=== PATIENT | male | born 1950 | race Caucasian/White ===

== ENCOUNTER → 2016-06-13 | Outpatient (CLI) | payer MEDICARE ==
--- NOTE | 2016-06-13 12:09 | CT ---
EXAMINATION TYPE: CT brain wo con DATE OF EXAM: 06/13/2016 12:04 PM COMPARISON: NONE HISTORY: Patient complains of neck pain and abnormal xray. CT DLP: [address] of the brain was performed. The ventricles, basal cisterns and sulci overlying the cerebral convexities demonstrate mild enlargem ent. There is no evidence for intracranial hemorrhage or sulcal effacement. There is decreased attenuation about the periventricular white matter and deep white matter of both c erebral hemispheres, compatible with chronic small vessel ischemia. Differential diagnosis does inclu de demyelination. No mass effects are seen.No midline shift. Osseous calvarium is intact. If symptoms persist consider MRI. IMPRESSION: 1. Age related atrophic and chronic small vessel ischemic change without acute intracranial process s een at this time.
== END | disposition home or self-care (01) ==
LOC: RADCTMAIN 11:47
PROVIDERS: ATTEND Family Medicine
DX: I67.82 Cerebral ischemia (principal); G31.1 Senile degeneration of brain, not elsewhere classified; R03.0 Elevated blood-pressure reading, without diagnosis of hypertension
CPT/HCPCS: 70450

== ENCOUNTER → 2016-07-04 | Outpatient (CLI) | payer MEDICARE ==
--- NOTE | 2016-07-04 11:08 | US ---
EXAMINATION TYPE: US abdomen complete DATE OF EXAM: 07/04/2016 9:47 AM COMPARISON: NONE CLINICAL HISTORY: Z82.49 FAM HX AAA. Pt states family history of AAA (Mother, Father, Sister, Aunt) EXAM MEASUREMENTS: Liver Length: 15.6 cm Gallbladder Wall: 0.2 cm CBD: 0.3 cm Spleen: 10.4 cm Right Kidney: 12.3 x 5.2 x 5.4 cm Left Kidney: 12.9 x 6.0 x 5.1 cm Pancreas: wnl, tail obscured by overlying midline bowel gas Liver: wnl Gallbladder: wnl Evidence for sonographic Alcala's sign: No CBD: wnl Spleen: wnl Right Kidney: wnl Left Kidney: wnl Upper IVC: wnl Abd Aorta: Ectatic with Distal AAA= 3.3 cm transverse measurement There is no ascites The liver is homogenous. The intrahepatic portion of the IVC is within normal limits. There is no e vidence of cholelithiasis. Common bile duct is unremarkable. The visualized portions of the pancrea s are homogenous. The spleen is unremarkable. Kidneys are symmetric and free of hydronephrosis. No renal lesions are seen. IMPRESSION: Abdominal aortic aneurysm.
== END | disposition home or self-care (01) ==
LOC: RADUSWWP 09:29
PROVIDERS: ATTEND Family Medicine
DX: Z09 Encounter for follow-up examination after completed treatment for conditions other than malignant neoplasm (principal); I71.4 Abdominal aortic aneurysm, without rupture
CPT/HCPCS: 76700

== ENCOUNTER → 2017-01-30 | Outpatient (CLI) | payer MEDICARE ==
--- NOTE | 2017-01-30 09:56 | US ---
EXAMINATION TYPE: US duplex aorta DATE OF EXAM: 01/30/2017 COMPARISON: US CLINICAL HISTORY: I71.4 Abdominal aortic aneurysm, without rupture. F/U previous EXAM MEASUREMENTS: Abdominal Aorta: Proximal: 2.7 x 3.1 x 3.1 cm Mid: 2.5 x 2.2 x 2.4 cm Distal: 2.6 x 2.8 x 3.3 cm Bifurcation: [place]: 1.8 x 1.6 cm GIO: 1.6 x 1.4 cm Ectatic aorta showing >3cm measurement, with largest measurement at distal portion= 3.3 cm IMPRESSION: Distal abdominal aortic aneurysm measuring up to 3.3 cm, unchanged in caliber from the ex am of 07/04/2016.
== END | disposition home or self-care (01) ==
LOC: RADUSWWP 09:04
PROVIDERS: ATTEND Family Medicine
DX: I71.4 Abdominal aortic aneurysm, without rupture (principal); Z82.49 Family history of ischemic heart disease and other diseases of the circulatory system
CPT/HCPCS: 93979

== ENCOUNTER 2017-04-23 07:52 | Observation (INO) | payer MEDICARE, OTHER ==
--- NOTE | 2017-04-23 08:21 | ED ---
General Adult HPI - General Chief complaint: Shortness of Breath Stated complaint: Sob/back pain Time Seen by Provider: 04/23/17 08:03 Source: patient, RN notes reviewed, old records reviewed Mode of arrival: wheelchair Limitations: no limitations - History of Present Illness Initial comments: 66-year-old male presents for evaluation of dyspnea and difficulty taking a complete breath. Patient states that over the past 2-3 weeks he has had increasing shortness of breath. Patient does report shortness of breath while sleeping that with the patient. He also reports some mild intermittent lower tremor swelling worse when he's been on his feet throughout the day. Patient denies chest pain. He does complain of pain between his shoulder blades which is mild to moderate and intermittent in nature. Pain does not worsen with exertion. Patient states he has a history of "hardening of the arteries", he was told this by aeronautical test engineer many years ago. He has not had a stent or heart catheterization. Patient is not currently on any medications. He has no history of heart failure. No history of asthma or COPD. No cough or URI symptoms. No nausea vomiting or diarrhea. No central chest pain. Patient has additional past medical history of abdominal aortic aneurysm, he is uncertain of the size, has not had any intervention at this time. - Related Data Home Medications Medication Instructions Recorded Confirmed Aspirin EC [Ecotrin] 325 mg PO BID 04/23/17 04/23/17 Multivitamins, Thera [Multivitamin 1 tab PO DAILY 04/23/17 04/23/17 (formulary)] Sertraline [Zoloft] 50 mg PO HS 04/23/17 04/23/17 valACYclovir HCL [Valtrex] 1,000 mg PO DAILY 04/23/17 04/23/17 Allergies Allergy/AdvReac Type Severity Reaction Status Date / Time No Known Allergies Allergy Unverified 04/23/17 08:32 Review of Systems ROS Statement: Those systems with pertinent positive or pertinent negative responses have been documented in the HPI. ROS Other: All systems not noted in ROS Statement are negative. Past Medical History Past Medical History: Coronary Artery Disease (CAD) History of Any Multi-Drug Resistant Organisms: None Reported Past Surgical History: Appendectomy, Hernia Repair, Tonsillectomy Past Psychological History: No Psychological Hx Reported Smoking Status: Never smoker Past Alcohol Use History: None Reported Past Drug Use History: None Reported General Exam Limitations: no limitations General appearance: alert, in no apparent distress Head exam: Present: atraumatic, normocephalic Eye exam: Present: normal appearance, PERRL ENT exam: Present: normal exam Neck exam: Present: normal inspection, tenderness Respiratory exam: Present: normal lung sounds bilaterally, respiratory distress. Absent: wheezes, rales, rhonchi Cardiovascular Exam: Present: regular rate, normal rhythm GI/Abdominal exam: Present: soft. Absent: distended Extremities exam: Present: normal inspection, normal capillary refill. Absent: pedal edema Back exam: Present: normal inspection, full ROM. Absent: tenderness Neurological exam: Present: alert, oriented X3, CN II-XII intact. Absent: motor sensory deficit Psychiatric exam: Present: normal affect, normal mood Skin exam: Present: warm, dry, intact. Absent: cyanosis, diaphoretic Course Vital Signs 04/23/17 07:56 Temperature 97.1 F L Pulse Rate 61 Respiratory 18 Rate Blood Pressure 148/92 O2 Sat by Pulse 99 Oximetry EKG Findings - EKG Comments: EKG Findings:: EKG shows sinus bradycardia, ventricular 55, AR interval 170, QRS duration 86, QTC 4:15, T-wave flattening in the precordial leads. No ST segment elevation or depression. Medical Decision Making - Medical Decision Making 66-year-old man presenting for evaluation of dyspnea and atraumatic mid back pain. EKG does not show any ST segment elevation or depression, there is T- wave abnormality. Chest x-ray shows no acute findings. White blood cell count 7.1, hemoglobin 15.4, d-dimer is negative, troponin negative, BNP 41 which is negative. Concerned that dyspnea and atraumatic back pain may be anginal equivalent. Patient will be placed in observation for cardiac echo, serial cardiac enzymes and cardiology evaluation. - Lab Data Result diagrams: 04/23/17 08:30 04/23/17 08:30 Lab Results 04/23/17 04/23/17 04/23/17 Range/Units 08:30 08:30 08:30 WBC 7.1 (3.8-10.6) k/uL RBC 4.88 (4.30-5.90) m/uL Hgb 15.4 (13.0-17.5) gm/dL Hct 46.2 (39.0-53.0) % MCV 94.7 (80.0-100.0) fL MCH 31.5 (25.0-35.0) pg MCHC 33.3 (31.0-37.0) g/dL RDW 13.9 (11.5-15.5) % Plt Count 243 (150-450) k/uL Neutrophils % 67 % Lymphocytes % 23 % Monocytes % 6 % Eosinophils % 2 % Basophils % 0 % Neutrophils # 4.7 (1.3-7.7) k/uL Lymphocytes # 1.6 (1.0-4.8) k/uL Monocytes # 0.5 (0-1.0) k/uL Eosinophils # 0.1 (0-0.7) k/uL Basophils # 0.0 (0-0.2) k/uL PT 10.5 (9.0-12.0) sec INR 1.1 (<1.2) APTT 26.0 (22.0-30.0) sec D-Dimer 0.27 (<0.60) mg/L FEU Sodium 140 (137-145) mmol/L Potassium 4.2 (3.5-5.1) mmol/L Chloride 104 (98-107) mmol/L Carbon Dioxide 28 (22-30) mmol/L Anion Gap 8 mmol/L BUN 16 (9-20) mg/dL Creatinine 0.72 (0.66-1.25) mg/dL Est GFR (MDRD) Af Amer >60 (>60 ml/min/1.73 sqM) Est GFR (MDRD) Non-Af >60 (>60 ml/min/1.73 sqM) Glucose 98 (74-99) mg/dL Calcium 9.1 (8.4-10.2) mg/dL Magnesium 2.1 (1.6-2.3) mg/dL Total Bilirubin 0.6 (0.2-1.3) mg/dL AST 38 (17-59) U/L ALT 55 (21-72) U/L Alkaline Phosphatase 61 (38-126) U/L Total Creatine Kinase (55-170) U/L CK-MB (CK-2) (0.0-2.4) ng/mL CK-MB (CK-2) Rel Index Troponin I (0.000-0.034) ng/mL NT-Pro-B Natriuret Pep pg/mL Total Protein 6.9 (6.3-8.2) g/dL Albumin 4.1 (3.5-5.0) g/dL 04/23/17 04/23/17 Range/Units 08:30 08:30 WBC (3.8-10.6) k/uL RBC (4.30-5.90) m/uL Hgb (13.0-17.5) gm/dL Hct (39.0-53.0) % MCV (80.0-100.0) fL MCH (25.0-35.0) pg MCHC (31.0-37.0) g/dL RDW (11.5-15.5) % Plt Count (150-450) k/uL Neutrophils % % Lymphocytes % % Monocytes % % Eosinophils % % Basophils % % Neutrophils # (1.3-7.7) k/uL Lymphocytes # (1.0-4.8) k/uL Monocytes # (0-1.0) k/uL Eosinophils # (0-0.7) k/uL Basophils # (0-0.2) k/uL PT (9.0-12.0) sec INR (<1.2) APTT (22.0-30.0) sec D-Dimer (<0.60) mg/L FEU Sodium (137-145) mmol/L Potassium (3.5-5.1) mmol/L Chloride (98-107) mmol/L Carbon Dioxide (22-30) mmol/L Anion Gap mmol/L BUN (9-20) mg/dL Creatinine (0.66-1.25) mg/dL Est GFR (MDRD) Af Amer (>60 ml/min/1.73 sqM) Est GFR (MDRD) Non-Af (>60 ml/min/1.73 sqM) Glucose (74-99) mg/dL Calcium (8.4-10.2) mg/dL Magnesium (1.6-2.3) mg/dL Total Bilirubin (0.2-1.3) mg/dL AST (17-59) U/L ALT (21-72) U/L Alkaline Phosphatase (38-126) U/L Total Creatine Kinase 186 H (55-170) U/L CK-MB (CK-2) 2.8 H* (0.0-2.4) ng/mL CK-MB (CK-2) Rel Index 1.5 Troponin I <0.012 (0.000-0.034) ng/mL NT-Pro-B Natriuret Pep 41 pg/mL Total Protein (6.3-8.2) g/dL Albumin (3.5-5.0) g/dL Disposition Clinical Impression: Anginal equivalent Disposition: ADMITTED IP TO THIS [facility] Condition: Stable Referrals: David Mann DO [Primary Care Provider] - 1-2 days Decision to Admit Reason: Admit from EC Decision Date: 04/23/17 Decision Time: 10:08
[2017-04-23 08:52] LABS: Basophils % (A) 0 %; Eosinophils # (A) 0.1 k/uL (0-0.7); Eosinophils % (A) 2 %; HCT 46.2 % (39.0-53.0); HGB 15.4 gm/dL (13.0-17.5); Lymphocytes # (A) 1.6 k/uL (1.0-4.8); Lymphocytes % (A) 23 %; MCH 31.5 pg (25.0-35.0); MCHC 33.3 g/dL (31.0-37.0); MCV 94.7 fL (80.0-100.0); Mean Platelet Volume 7.6; Monocytes # (A) 0.5 k/uL (0-1.0); Monocytes % (A) 6 %; Neutrophils # (A) 4.7 k/uL (1.3-7.7); Neutrophils % (A) 67 %; Platelet Count 243 k/uL (150-450); RBC 4.88 m/uL (4.30-5.90); RDW 13.9 % (11.5-15.5); WBC 7.1 k/uL (3.8-10.6)
--- NOTE | 2017-04-23 09:11 | XR ---
EXAMINATION TYPE: XR chest 2V DATE OF EXAM: 04/23/2017 COMPARISON: NONE TECHNIQUE: PA and lateral views submitted. HISTORY: Shortness of breath FINDINGS: The lungs are clear and there is no pneumothorax, pleural effusion, or focal pneumonia. Hypertrophi c and degenerative change of the spine. Hyperinflation noted. IMPRESSION: 1. No acute process.
[2017-04-23 09:19] LABS: Creatine Kinase 186 U/L (55-170)
[2017-04-23 09:21] LABS: ALT 55 U/L (21-72); AST 38 U/L (17-59); Albumin 4.1 g/dL (3.5-5.0); Alkaline Phosphatase 61 U/L (38-126); Anion Gap 8 mmol/L; Blood Urea Nitrogen 16 mg/dL (9-20); Calcium 9.1 mg/dL (8.4-10.2); Carbon Dioxide 28 mmol/L (22-30); Chloride 104 mmol/L (98-107); Glucose 98 mg/dL (74-99); Magnesium 2.1 mg/dL (1.6-2.3); Sodium 140 mmol/L (137-145); Total Bilirubin 0.6 mg/dL (0.2-1.3); Total Protein 6.9 g/dL (6.3-8.2)
[2017-04-23 09:22] LABS: Potassium 4.2 mmol/L (3.5-5.1)
[2017-04-23 09:28] LABS: D-Dimer 0.27 mg/L FEU (<0.60); INR 1.1 (<1.2); Prothrombin Time 10.5 sec (9.0-12.0)
[2017-04-23 09:32] LABS: Troponin I <0.012 ng/mL (0.000-0.034)
[2017-04-23 09:35] LABS: Creatine Kinase MB 2.8 ng/mL (0.0-2.4)
[2017-04-23] MEDS ORDERED: ASPIRIN 325 MG TAB PO STA (10:06)
[2017-04-23] MEDS ORDERED: NALOXONE 0.4 MG/ML 1 ML VIAL IV PRN (10:10)
[2017-04-23] MEDS ORDERED: ONDANSETRON 4 MG/2 ML VIAL IVP PRN (10:12)
[2017-04-23] MEDS ORDERED: NITROGLYCERIN SL TABS 0.4 MG TAB SUBLINGUAL PRN (10:13)
[2017-04-23] MEDS ORDERED: SODIUM CHLORIDE 0.9% 1,000 ML IV SCH (10:15)
--- NOTE | 2017-04-23 12:23 | ECHOF ---
Referral Reason:Dyspnea, chest pain MEASUREMENTS -------- HEIGHT: 175.3 cm WEIGHT: 90.7 kg BP: 143/83 RVIDd: 3.2 cm (< 3.3) IVSd: 1.0 cm (0.6 - 1.1) LVIDd: 5.1 cm (3.9 - 5.3) LVPWd: 1.2 cm (0.6 - 1.1) IVSs: 1.6 cm LVIDs: 3.4 cm LVPWs: 1.6 cm LA Diam: 3.8 cm (2.7 - 3.8) LAESV Index (A-L): 26.47 ml/m Ao Diam: 3.3 cm (2.0 - 3.7) AV Cusp: 2.2 cm (1.5 - 2.6) MV EXCURSION: 16.312 mm (> 18.000) MV EF SLOPE: 45 mm/s (70 - 150) EPSS: 1.2 cm MV E Josafat: 0.52 m/s MV DecT: 227 ms MV A Josafat: 0.66 m/s MV E/A Ratio: 0.79 RAP: 5.00 mmHg RVSP: 24.94 mmHg FINDINGS -------- Sinus rhythm. This was a technically good study. The left ventricular size is normal. There is borderline concentric left ventricular hypertrophy. Overall left ventricular systolic function is normal with, an EF between 55 - 60 %. The right ventricle is normal in size and function. Normal LA size by volume 22+/-6 ml/m2. The right atrium is normal in size. The aortic valve is trileaflet and appears structurally normal. The mitral valve is normal. Mild tricuspid regurgitation present. Right ventricular systolic pressure is normal at < 35 mmHg. Trace/mild (physiologic) pulmonic regurgitation. The aortic root size is normal. Normal inferior vena cava with normal inspiratory collapse consistent with estimated right atrial pre ssure of 5 mmHg. There is no pericardial effusion. CONCLUSIONS -------- 1. Sinus rhythm. 2. This was a technically good study. 3. The left ventricular size is normal. 4. There is borderline concentric left ventricular hypertrophy. 5. Overall left ventricular systolic function is normal with, an EF between 55 - 60 %. 6. The right ventricle is normal in size and function. 7. Normal LA size by volume 22+/-6 ml/m2. 8. The right atrium is normal in size. 9. The aortic valve is trileaflet and appears structurally normal. 10. The mitral valve is normal. 11. Mild tricuspid regurgitation present. 12. Right ventricular systolic pressure is normal at < 35 mmHg. 13. Trace/mild (physiologic) pulmonic regurgitation. 14. The aortic root size is normal. 15. Normal inferior vena cava with normal inspiratory collapse consistent with estimated right atrial pressure of 5 mmHg. 16. There is no pericardial effusion. OPHTHALMOLOGY ASSISTANT: Patti Renteria RDCS
[2017-04-23] MEDS: ACETAMINOPHEN TAB 325 MG TAB PO PRN ×2 (15:10→20:03)
[2017-04-23 15:31] LABS: Creatine Kinase 162 U/L (55-170)
[2017-04-23 15:44] LABS: Creatine Kinase MB 2.3 ng/mL (0.0-2.4); Troponin I <0.012 ng/mL (0.000-0.034)
--- NOTE | 2017-04-23 16:32 | P.HPIM ---
History of Present Illness 66-year-old gentleman came with complaints of bilateral shoulder pain for weight in severity pressure-like sensation nonradiating associated with food along with nausea denied any diaphoresis last about 40 minutes. Patient still has his gallbladder patient denied any fever chills cough runny nose patient's chest pain is nonpleuritic in nature, complaining of some lightheadedness denied any shortness of breath associated with that. Review of Systems REVIEW OF SYSTEMS: CONSTITUTIONAL: No fever, no malaise, no fatigue. HEENT: No recent visual problems or hearing problems. Denied any sore throat. CARDIOVASCULAR: No orthopnea, PND, no palpitations, no syncope. PULMONARY: No shortness of breath, no cough, no hemoptysis. GASTROINTESTINAL: No diarrhea, no nausea, no vomiting, no abdominal pain. Normoactive bowel sounds. NEUROLOGICAL: No headaches, no weakness, no numbness. HEMATOLOGICAL: Denies any bleeding or petechiae. GENITOURINARY: Denies any burning micturition, frequency, or urgency. MUSCULOSKELETAL/RHEUMATOLOGICAL: Denies any joint pain, swelling, or any muscle pain. ENDOCRINE: Denies any polyuria or polydipsia. The rest of the 14-point review of systems is negative. Past Medical History Past Medical History: Coronary Artery Disease (CAD) Additional Past Medical History / Comment(s): AAA being monitored, occasional back pain, bilateral tinnitis. History of Any Multi-Drug Resistant Organisms: None Reported Past Surgical History: Appendectomy, Hernia Repair, Tonsillectomy Additional Past Surgical History / Comment(s): Bilateral inguinal hernia repairs done twice. Past Anesthesia/Blood Transfusion Reactions: No Reported Reaction Smoking Status: Never smoker - Past Family History Father Family Medical History: Cancer Additional Family Medical History / Comment(s): Father at the age of 75yrs from metastatic bladder cancer. Mother Family Medical History: No Reported History Additional Family Medical History / Comment(s): Mother is 85yrs old and healthy. Medications and Allergies Home Medications Medication Instructions Recorded Confirmed Type Aspirin EC [Ecotrin] 325 mg PO BID 04/23/17 04/23/17 History Multivitamins, Thera [Multivitamin 1 tab PO DAILY 04/23/17 04/23/17 History (formulary)] Sertraline [Zoloft] 50 mg PO HS 04/23/17 04/23/17 History valACYclovir HCL [Valtrex] 1,000 mg PO DAILY 04/23/17 04/23/17 History Allergies Allergy/AdvReac Type Severity Reaction Status Date / Time No Known Allergies Allergy Unverified 04/23/17 08:32 Physical Exam Vitals: Vital Signs Temp Pulse Pulse Resp BP BP Pulse Ox 04/23/17 15:37 97.7 F 61 18 127/75 97 04/23/17 14:15 98.0 F 63 18 139/86 99 04/23/17 14:07 98.7 F 64 18 132/63 98 04/23/17 13:24 94 18 146/94 98 04/23/17 10:02 59 L 18 123/85 98 04/23/17 09:02 52 L 18 142/86 98 04/23/17 07:56 97.1 F L 61 18 148/92 99 Intake and Output 04/23/17 04/23/17 04/23/17 06:59 14:59 22:59 Other: Weight 91.9 kg Patient Weight 04/24/17 06:59 Weight 91.9 kg PHYSICAL EXAMINATION: GENERAL: The patient is alert and oriented x3, not in any acute distress. Well developed, well nourished. HEENT: Pupils are round and equally reacting to light. EOMI. No scleral icterus. No conjunctival pallor. Normocephalic, atraumatic. No pharyngeal erythema. No thyromegaly. CARDIOVASCULAR: S1 and S2 present. No murmurs, rubs, or gallops. PULMONARY: Chest is clear to auscultation, no wheezing or crackles. ABDOMEN: Soft, nontender, nondistended, normoactive bowel sounds. No palpable organomegaly. MUSCULOSKELETAL: No joint swelling or deformity. EXTREMITIES: No cyanosis, clubbing, or pedal edema. NEUROLOGICAL: Gross neurological examination did not reveal any focal deficits. SKIN: No rashes. Results CBC & Chem 7: 04/23/17 08:30 04/23/17 08:30 Labs: Abnormal Lab Results - Last 24 Hours (Table) 04/23/17 Range/Units 08:30 Total Creatine Kinase 186 H (55-170) U/L CK-MB (CK-2) 2.8 H* (0.0-2.4) ng/mL Thrombosis Risk Factor Assmnt - Choose All That Apply Any of the Below Risk Factors Present?: Yes Each Factor Represents 1 point: Obesity (BMI >25) Other Risk Factors: Yes Each Risk Factor Represents 2 Points: Age 61-74 years Other congenital or acquired thrombophilia - If yes, enter type in comment: No Thrombosis Risk Factor Assessment Total Risk Factor Score: 3 Thrombosis Risk Factor Assessment Level: Moderate Risk Assessment and Plan Plan: #1 bilateral shoulder blade pain: Differentials include cholecystitis or cholelithiasis although patient does not have any other signs or symptoms of cholelithiasis or cholecystitis other differential being gastritis patient is actually admitted for rule out acute coronary syndromes and cardiology was consulted. We'll obtain ultrasound of the gallbladder. Patient will be started on Protonix twice a day. #2 history of coronary artery disease and patient is on aspirin at this time which will be continued patient is not in any beta bill. #3 depression for which patient will be continued on his home medication.
[2017-04-23] MEDS: PANTOPRAZOLE 40 MG/10 ML VIAL IVP SCH (20:02)
[2017-04-23] MEDS ORDERED: MORPHINE SULFATE 5 MG/ML SYRINGE IVP PRN (20:50)
[2017-04-23] MEDS ORDERED: IBUPROFEN 600 MG TAB PO PRN (20:51)
[2017-04-23] MEDS ORDERED: SERTRALINE 50 MG TAB PO SCH (21:00)
[2017-04-23 21:01] LABS: Creatine Kinase 146 U/L (55-170)
[2017-04-23 21:13] LABS: Creatine Kinase MB 1.9 ng/mL (0.0-2.4); Troponin I <0.012 ng/mL (0.000-0.034)
[2017-04-23] MEDS ORDERED: MAG HYDROX/AL HYDROX/SIMETH 30 ML CUP PO PRN (22:55)
[2017-04-24] MEDS: KETOROLAC 30 MG/ML 1 ML VIAL IVP SCH ×2 (00:45→05:52)
[2017-04-24] MEDS: SIMETHICONE 80 MG CHEWABLE PO SCH ×3 (00:45→16:09)
[2017-04-24 04:54] VITALS: RESP 18
--- NOTE | 2017-04-24 07:47 | US ---
EXAMINATION TYPE: US gallbladder DATE OF EXAM: 04/24/2017 COMPARISON: US CLINICAL HISTORY: R/O cholicytitis. epigastric pain EXAM MEASUREMENTS: Liver Length: 13.8 cm Gallbladder Wall: 0.2 cm CBD: 0.6 cm Right Kidney: 11.9 x 4.4 x 5.8 cm Pancreas: visualized portions wnl Liver: wnl Gallbladder: No stones seen Evidence for sonographic Alcala's sign: No CBD: wnl Right Kidney: No hydronephrosis or masses seen IMPRESSION: No significant abnormality identified.
[2017-04-24] MEDS ORDERED: MORPHINE SULFATE 2 MG/ML SYRINGE IVP PRN (08:48)
[2017-04-24] MEDS ORDERED: valACYclovir HCL 1,000 MG TABLET PO SCH (09:00)
[2017-04-24] MEDS ORDERED: ASPIRIN 325 MG TAB PO SCH (09:00)
[2017-04-24] MEDS: PANTOPRAZOLE 40 MG/10 ML VIAL IVP SCH (12:12)
--- NOTE | 2017-04-24 12:15 | P.CRDCN ---
History of Present Illness Consult date: 04/24/17 History of present illness: Mr. Mendoza is a pleasant 66-year-old male with past medical history significant for distal abdominal aortic aneurysm measuring 3.3 cm as of last ultrasound. He states he underwent catheterization 10+ years ago with Dr. Chappell and was told he has "hardening of the arteries" and has not had any cardiac follow-up since. Those records are unavailable at this time. We have been asked to see him in consultation for complaints of chest pain. He states this has been going on for the past few weeks. It starts in the epigastric region and is described as burning and tight. The pain then radiates up to his upper back between his shoulder blades as well as mild nausea. The pain comes on intermittently and is associated with eating. Usually occurs within 15-30 minutes of eating and he can make it better by getting up and walking around. He denies associated shortness of breath, dizziness, palpitations or diaphoresis. He still has his gallbladder and an ultrasound performed yesterday reveals no evidence of disease. EKG on arrival reveals sinus mechanism with non-specific T-wave abnormalities. Chest xray is negative for an acute cardiopulmonary process. Laboratory data reviewed,cardiac enzymes negative x3, hemoglobin 15.4, platelets 243, d-dimer negative, potassium 4.2, magnesium 2.1, creatinine 0.72, proBNP 41. Current cardiac medications include aspirin 81 mg daily. Review of Systems At the time of my exam: CONSTITUTIONAL: Denies fever. Denies chills. EYES: Denies blurred vision. Denies vision changes. Denies eye pain. EARS, NOSE, MOUTH & THROAT: Denies headache. Denies sore throat. Denies ear pain. CARDIOVASCULAR: Denies chest pain. Denies shortness of breath. Denies orthopnea. Denies PND. Denies palpitations. RESPIRATORY: Denies cough. GASTROINTESTINAL: Denies abdominal pain. Denies diarrhea. Denies constipation. Denies nausea. Denies vomiting. MUSCULOSKELETAL: Denies myalgias. INTEGUMENTARY: Denies pruitis. Denies rash. NEUROLOGIC: Denies numbness. Denies tingling. Denies weakness. PSYCHIATRIC: Denies anxiety. Denies depression. ENDOCRINE: Denies fatigue. Denies weight change. Denies polydipsia. Denies polyurina. GENITOURINARY: Denies burning, hematuria or urgency with micturation. HEMATOLOGIC: Denies history of anemia. Denies bleeding. Past Medical History Past Medical History: Coronary Artery Disease (CAD) Additional Past Medical History / Comment(s): AAA being monitored, occasional back pain, bilateral tinnitis. History of Any Multi-Drug Resistant Organisms: None Reported Past Surgical History: Appendectomy, Hernia Repair, Tonsillectomy Additional Past Surgical History / Comment(s): Bilateral inguinal hernia repairs done twice. Past Anesthesia/Blood Transfusion Reactions: No Reported Reaction Smoking Status: Never smoker - Past Family History Father Family Medical History: Cancer Additional Family Medical History / Comment(s): Father at the age of 75yrs from metastatic bladder cancer. Mother Family Medical History: No Reported History Additional Family Medical History / Comment(s): Mother is 85yrs old and healthy. Medications and Allergies Home Medications Medication Instructions Recorded Confirmed Type Aspirin EC [Ecotrin] 325 mg PO BID 04/23/17 04/23/17 History Multivitamins, Thera [Multivitamin 1 tab PO DAILY 04/23/17 04/23/17 History (formulary)] Sertraline [Zoloft] 50 mg PO HS 04/23/17 04/23/17 History valACYclovir HCL [Valtrex] 1,000 mg PO DAILY 04/23/17 04/23/17 History Allergies Allergy/AdvReac Type Severity Reaction Status Date / Time No Known Allergies Allergy Unverified 04/23/17 08:32 Physical Exam Vitals: Vital Signs Temp Pulse Pulse Resp BP BP Pulse Ox 04/24/17 08:00 97.7 F 57 L 18 148/87 98 04/24/17 04:00 98.1 F 44 L 18 121/84 98 04/24/17 00:00 98 F 53 L 20 144/92 97 04/23/17 20:00 20 04/23/17 19:34 98.0 F 62 18 132/91 97 04/23/17 15:37 97.7 F 61 18 127/75 97 04/23/17 14:15 98.0 F 63 18 139/86 99 04/23/17 14:07 98.7 F 64 18 132/63 98 04/23/17 13:24 94 18 146/94 98 04/23/17 10:02 59 L 18 123/85 98 04/23/17 09:02 52 L 18 142/86 98 Intake and Output 04/23/17 04/24/17 04/24/17 22:59 06:59 14:59 Intake Total 440 Balance 440 Intake: Oral 440 Other: Voiding Method Toilet Toilet Blood pressure 121/84 heart rate 44 afebrile GENERAL: This is a 66-year-old male in no apparent distress at the time of my examination. HEENT: Head is atraumatic, normocephalic. Pupils are equal, round. Sclerae anicteric. Conjunctivae are clear. Mucous membranes of the mouth are moist. Neck is supple. There is no jugular venous distention. No carotid bruit is heard. LUNGS: Clear to auscultation no wheezes, rales or rhonchi. No chest wall tenderness is noted on palpation or with deep breathing. HEART: Regular rate and rhythm without murmurs, rubs or gallops. S1 and S2 heard. ABDOMEN: Soft, nontender. Bowel sounds are heard. No organomegaly noted. EXTREMITIES: 2+ peripheral pulses with no evidence of peripheral edema and no calf tenderness noted. NEUROLOGIC: Patient is awake, alert and oriented x3. Results 04/23/17 08:30 04/23/17 08:30 Cardiac Enzymes 04/23/17 04/23/17 04/23/17 Range/Units 08:30 08:30 15:00 AST 38 (17-59) U/L CK-MB (CK-2) 2.8 H* 2.3 (0.0-2.4) ng/mL Troponin I <0.012 <0.012 (0.000-0.034) ng/mL 04/23/17 Range/Units 20:14 AST (17-59) U/L CK-MB (CK-2) 1.9 (0.0-2.4) ng/mL Troponin I <0.012 (0.000-0.034) ng/mL Coagulation 04/23/17 Range/Units 08:30 PT 10.5 (9.0-12.0) sec APTT 26.0 (22.0-30.0) sec CBC 04/23/17 Range/Units 08:30 WBC 7.1 (3.8-10.6) k/uL RBC 4.88 (4.30-5.90) m/uL Hgb 15.4 (13.0-17.5) gm/dL Hct 46.2 (39.0-53.0) % Plt Count 243 (150-450) k/uL Comprehensive Metabolic Panel 04/23/17 Range/Units 08:30 Sodium 140 (137-145) mmol/L Potassium 4.2 (3.5-5.1) mmol/L Chloride 104 (98-107) mmol/L Carbon Dioxide 28 (22-30) mmol/L BUN 16 (9-20) mg/dL Creatinine 0.72 (0.66-1.25) mg/dL Glucose 98 (74-99) mg/dL Calcium 9.1 (8.4-10.2) mg/dL AST 38 (17-59) U/L ALT 55 (21-72) U/L Alkaline Phosphatase 61 (38-126) U/L Total Protein 6.9 (6.3-8.2) g/dL Albumin 4.1 (3.5-5.0) g/dL Current Medications Generic Name Dose Route Start Last Admin Trade Name Freq PRN Reason Stop Dose Admin Acetaminophen 650 mg 04/23/17 10:12 04/23/17 20:03 Tylenol Tab PO 650 mg Q6HR PRN Administration Mild Pain or Fever > 100.5 Al Hydroxide/Mg Hydroxide 30 ml 04/23/17 22:55 04/23/17 23:24 Maalox PO 30 ml Q4HR PRN Administration GI Upset Aspirin 325 mg 04/24/17 09:00 Aspirin PO DAILY [facility] Sodium Chloride 1,000 mls @ 20 mls/hr 04/23/17 10:15 04/23/17 10:27 Saline 0.9% IV 20 mls/hr .Q24H PETR Administration Ibuprofen 600 mg 04/28/17 00:21 Motrin PO TID PRN Pain Ketorolac Tromethamine 30 mg 04/24/17 00:30 04/24/17 05:52 Toradol IVP 04/28/17 00:20 30 mg Q6HR PETR Administration Morphine Sulfate 2 mg 04/23/17 20:50 04/23/17 21:07 Morphine Sulfate IVP 2 mg Q4HR PRN Administration Pain/Discomfort Naloxone HCl 0.2 mg 04/23/17 10:10 Narcan IV Q2M PRN Opioid Reversal Nitroglycerin 0.4 mg 04/23/17 10:13 Nitrostat SUBLINGUAL Q5M PRN Chest Pain Ondansetron HCl 4 mg 04/23/17 10:12 Zofran IVP Q8HR PRN Nausea And Vomiting Pantoprazole Sodium 40 mg 04/23/17 21:00 04/23/17 20:02 Protonix IVP 40 mg BID PETR Administration Sertraline HCl 50 mg 04/23/17 21:00 04/23/17 20:02 Zoloft PO 50 mg HS PETR Administration Simethicone 80 mg 04/24/17 00:15 04/24/17 00:45 Mylicon Chew PO 80 mg QID PETR Administration Valacyclovir HCl 1,000 mg 04/24/17 09:00 Valtrex PO DAILY PETR Intake and Output 04/23/17 04/24/17 04/24/17 22:59 06:59 14:59 Intake Total 440 Balance 440 Intake: Oral 440 Other: Voiding Method Toilet Toilet 04/23/17 08:30 04/23/17 08:30 Assessment and Plan Assessment: ASSESSMENT 1. Chest pain, atypical with negative cardiac enzymes with questionable history of CAD 2. Abdominal aortic aneurysm PLAN 2D echocardiogram and doppler study was obtained and reveals preserved LV function with EF 55-60% and no valvular disease. Perform stress echocardiogram to assess for exercise induced cardiac ischemia. Obtain records from archives of cardiac catheterization done in the past. If this testing is negative he is stable from cardiac perspective. The above impression and plan of care have been discussed and directed by the signing physician. Nel Houston, nurse practitioner, acting as scribe for signing physician.
--- NOTE | 2017-04-24 12:36 | ECHOS ---
STRESS ECHOCARDIOGRAM DATE OF SERVICE: 04/24/2017 INDICATIONS: Chest pain. MEDICATIONS: Aspirin, Zoloft. BASELINE HEART RATE: 62 BASELINE BLOOD PRESSURE: 141/78 MAXIMUM HEART RATE: 142 MAXIMUM BLOOD PRESSURE: 180/98 85% MPHR: 133 100% MPHR: 156 METS: 10 MAXIMUM STAGE REACHED: III TOTAL EXERCISE TIME: 9 minutes CLINICAL INFORMATION: Baseline EKG shows sinus rhythm, normal axis, normal intervals. Patient exercised on Darryl protocol for a total of 9 minutes achieving 10 METs, 91% of predicted maximal heart rate without chest pain or diagnostic ST-segment depression. Occasional PVCs were noted at peak exercise. Baseline echo shows normal left ventricular size, wall motion and systolic function. Postexercise there is normal hyperdynamic response of all segments of myocardium noted. CONCLUSIONS: 1. Good exercise tolerance. 2. Negative stress test by EKG criteria. 3. Negative stress echo. MMHUGO / CAROLINAN: [id number] /
[2017-04-24 12:58] VITALS: BP 138/86; PULSE 72; TEMP 97.8
--- NOTE | 2017-04-24 18:07 | P.DS ---
Providers Date of admission: 04/23/17 10:10 Attending physician: Arnaud Silveira Consults: 04/23/17 10:11 Consult Physician Urgent Consulting Provider: Daniel Martin Consult Reason/Comments: Chest pain Do you want consulting provider notified?: Yes Primary care physician: [facility] Course: She was admitted for chest pain to rule out acute coronary syndromes of liquor Crohn's syndromes was ruled out for ruled out patient had a stress test which was negative patient's ultrasound did not show any cholelithiasis or cholecystitis and patient is being discharged today patient most probably has gastritis for which we will prescribe him Prilosec asked him to avoid nonsteroidal anti-inflammatory medications. PHYSICAL EXAMINATION: GENERAL: The patient is alert and oriented x3, not in any acute distress. Well developed, well nourished. HEENT: Pupils are round and equally reacting to light. EOMI. No scleral icterus. No conjunctival pallor. Normocephalic, atraumatic. No pharyngeal erythema. No thyromegaly. CARDIOVASCULAR: S1 and S2 present. No murmurs, rubs, or gallops. PULMONARY: Chest is clear to auscultation, no wheezing or crackles. ABDOMEN: Soft, nontender, nondistended, normoactive bowel sounds. No palpable organomegaly. MUSCULOSKELETAL: No joint swelling or deformity. EXTREMITIES: No cyanosis, clubbing, or pedal edema. NEUROLOGICAL: Gross neurological examination did not reveal any focal deficits. SKIN: No rashes. Patient Condition at Discharge: Stable Plan - Discharge Summary Discharge Rx Participant: No New Discharge Prescriptions: New Omeprazole [PriLOSEC] 40 mg PO [facility]14 capsule.dr Carreon Action Multivitamins, Thera [Multivitamin (formulary)] 1 tab PO DAILY valACYclovir HCL [Valtrex] 1,000 mg PO DAILY Sertraline [Zoloft] 50 mg PO HS Aspirin EC [Ecotrin] 325 mg PO BID Discharge Medication List Aspirin EC [Ecotrin] 325 mg PO BID 04/23/17 [History] Multivitamins, Thera [Multivitamin (formulary)] 1 tab PO DAILY 04/23/17 [History ] Sertraline [Zoloft] 50 mg PO HS 04/23/17 [History] valACYclovir HCL [Valtrex] 1,000 mg PO DAILY 04/23/17 [History] Omeprazole [PriLOSEC] 40 mg PO ROHITKFSRashi #14 capsule. 04/24/17 [Rx] Follow up Appointment(s)/Referral(s): David Mann DO [Primary Care Provider] - 3 Days Chandra Elam MD [STAFF PHYSICIAN] - 1 Week (Follow up appointment is May 13 @ 3pm with Dr. Elam) Discharge Disposition: HOME SELF-CARE
[2017-04-25] MEDS ORDERED: ASPIRIN 81 MG PO SCH (09:00)
[2017-04-28] MEDS ORDERED: IBUPROFEN 600 MG TAB PO PRN (00:21)
== END 2017-04-24 16:18 | disposition home or self-care (01) ==
LOC: EC 07:52 → 3OBS 10:10
PROVIDERS: ADMIT Internal Medicine; ATTEND Internal Medicine
DX: R07.89 Other chest pain (principal); I71.4 Abdominal aortic aneurysm, without rupture; Z79.82 Long term (current) use of aspirin; Z79.899 Other long term (current) drug therapy; Z80.52 Family history of malignant neoplasm of bladder; I25.10 Atherosclerotic heart disease of native coronary artery without angina pectoris; H93.13 Tinnitus, bilateral; R10.13 Epigastric pain; F32.9 Major depressive disorder, single episode, unspecified; M25.512 Pain in left shoulder; M25.511 Pain in right shoulder; E66.9 Obesity, unspecified; Z68.29 Body mass index [BMI] 29.0-29.9, adult; R06.00 Dyspnea, unspecified; R06.02 Shortness of breath; M54.6 Pain in thoracic spine; R11.0 Nausea; R42 Dizziness and giddiness
CPT/HCPCS: 99285; 96374; 96375 ×2; 96376; 36415; 93005; 93017; 93306; 93350; 85379; 83880; 80053; 82550; 82553; 83735; 84484; 85025; 85610; 85730; 71046; 76705; G0378 ×2; J1885; C9113 ×2; J2274

== ENCOUNTER → 2017-05-24 | Outpatient (CLI) | payer MEDICARE, OTHER ==
--- NOTE | 2017-05-24 15:54 | US ---
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 Tenderness, thyroid feels enlarged, dysph agia GLAND SIZE: Right Lobe: 4.2 x 1.4 x 1.5 cm Overall Parenchyma: homogenous Left Lobe: 4.2 x 2.0 x 1.3 cm Overall Parenchyma: homogeneous Isthmus Thickness: 0.4 cm NODULES RIGHT: # of nodules measured on right: 0 LEFT: # of nodules measured on left: 0 ISTHMUS: # of nodules measured in the isthmus: 0 Bilateral neck scanned, right jugular vein appears prominent No distinct thyroid nodule visualized at this time IMPRESSION: Normal thyroid ultrasound
== END | disposition home or self-care (01) ==
LOC: RADUSWWP 14:41
PROVIDERS: ATTEND Family Medicine
DX: E04.9 Nontoxic goiter, unspecified (principal); R13.10 Dysphagia, unspecified
CPT/HCPCS: 76536

== ENCOUNTER → 2019-02-17 | Outpatient (CLI) | payer MEDICARE, OTHER ==
--- NOTE | 2019-02-17 13:15 | CT ---
EXAMINATION TYPE: CT brain wo con DATE OF EXAM: 02/17/2019 COMPARISON: 06/13/2016 HISTORY: Dysphagia and right sided weakness. CT DLP: 1183 mGycm Automated exposure control for dose reduction was used. FINDINGS: Right basal ganglia dystrophic calcification is seen. There is no evidence of acute intracranial hemo rrhage, midline shift or mass effect. Peripheral sulci and ventricular system are overall symmetric w ith mild prominence on the basis of age-related volume loss. There is a punctate old lacunar injury o f the right anterior limb of the internal capsule. Faint periventricular nonspecific white matter gretta nge is most notable in the right frontal lobe such as on image 36 and similar in degree to the prior (mild burden). No suspicious extra-axial fluid collection is seen. Orbits are symmetric. Scalp soft t issues are unremarkable. Calvarium is intact. Paranasal sinuses and mastoid air cells are well aerate d. IMPRESSION: 1. NO ACUTE INFARCT, MIDLINE SHIFT OR MASS EFFECT IS SEEN. 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 2. SIMILAR BURDEN NONSPECIFIC MILD WHITE MATTER CHANGE IN COMPARISON TO THE EXAM OF 2017, MOST, CHRON IC MICROANGIOPATHY WITH MILD LIKELY AGE-RELATED VOLUME LOSS.
== END | disposition home or self-care (01) ==
LOC: RADCTMAIN 12:32
PROVIDERS: ATTEND Family Medicine
DX: I73.89 Other specified peripheral vascular diseases (principal); R90.89 Other abnormal findings on diagnostic imaging of central nervous system; G20 Parkinson's disease
CPT/HCPCS: 70450

== ENCOUNTER 2019-03-02 14:37 | Inpatient (IN) | payer MEDICARE ==
--- NOTE | 2019-03-02 15:13 | ED ---
General Adult HPI - General Chief complaint: Shortness of Breath Stated complaint: SOB Time Seen by Provider: 03/02/19 14:51 Source: patient, RN notes reviewed Mode of arrival: wheelchair Limitations: no limitations - History of Present Illness Initial comments: Patient is a pleasant 68-year-old male presenting to the emergency Department with complaints of dyspnea. Symptoms have started a couple of weeks ago. Symptoms are somewhat worse today. Symptoms are worse with lying down. No leg pain or leg swelling. Patient does have a history once proximal 20 years ago associated with congestive heart failure that feels somewhat similar to this. Patient states he had quite a lifestyle back at that point. Patient denies any chest discomfort. No fevers. Mild cough that is nonproductive. - Related Data Home Medications Medication Instructions Recorded Confirmed Aspirin EC [Ecotrin] 325 mg PO BID 04/23/17 04/23/17 Multivitamins, Thera [Multivitamin 1 tab PO DAILY 04/23/17 04/23/17 (formulary)] Sertraline [Zoloft] 50 mg PO HS 04/23/17 04/23/17 valACYclovir HCL [Valtrex] 1,000 mg PO DAILY 04/23/17 04/23/17 Previous Rx's Medication Instructions Recorded Omeprazole [PriLOSEC] 40 mg PO AC-BRKFST #14 capsule. 04/24/17 Allergies Allergy/AdvReac Type Severity Reaction Status Date / Time No Known Allergies Allergy Verified 03/02/19 16:17 Review of Systems ROS Statement: Those systems with pertinent positive or pertinent negative responses have been documented in the HPI. ROS Other: All systems not noted in ROS Statement are negative. Constitutional: Denies: fever Eyes: Denies: eye pain ENT: Denies: ear pain Respiratory: Reports: cough, dyspnea Cardiovascular: Denies: chest pain Endocrine: Reports: fatigue Gastrointestinal: Denies: abdominal pain Genitourinary: Denies: dysuria Musculoskeletal: Denies: back pain Skin: Denies: rash Neurological: Denies: weakness Past Medical History Past Medical History: Coronary Artery Disease (CAD) Additional Past Medical History / Comment(s): AAA being monitored, occasional back pain, bilateral tinnitis. History of Any Multi-Drug Resistant Organisms: None Reported Past Surgical History: Appendectomy, Hernia Repair, Tonsillectomy Additional Past Surgical History / Comment(s): Bilateral inguinal hernia repairs done twice. Past Anesthesia/Blood Transfusion Reactions: No Reported Reaction Past Psychological History: No Psychological Hx Reported Smoking Status: Never smoker Past Alcohol Use History: None Reported Past Drug Use History: None Reported - Past Family History Father Family Medical History: Cancer Additional Family Medical History / Comment(s): Father at the age of 75yrs from metastatic bladder cancer. Mother Family Medical History: No Reported History Additional Family Medical History / Comment(s): Mother is 85yrs old and healthy. General Exam Limitations: no limitations General appearance: alert, in no apparent distress Head exam: Present: atraumatic Eye exam: Present: normal appearance Neck exam: Present: normal inspection Respiratory exam: Present: normal lung sounds bilaterally. Absent: chest wall tenderness Cardiovascular Exam: Present: regular rate, normal rhythm, normal heart sounds GI/Abdominal exam: Present: soft. Absent: tenderness Extremities exam: Present: normal inspection. Absent: pedal edema, calf tenderness Back exam: Present: normal inspection Neurological exam: Present: alert Psychiatric exam: Present: normal affect, normal mood Skin exam: Present: normal color Course Vital Signs 03/02/19 03/02/19 14:44 15:15 Temperature 98.1 F Pulse Rate 72 Respiratory 18 16 Rate Blood Pressure 153/96 O2 Sat by Pulse 99 Oximetry EKG Findings - EKG Comments: EKG Findings:: Normal sinus rhythm 68. FL 160. QRS 86. QT 398. QTC 423. Normal axis. Borderline LVH. No acute ST change. Medical Decision Making - Medical Decision Making Patient reevaluated and resting comfortably in bed. Patient updated on results and plan. Case was discussed with Dr. mcguire, covering for Dr. Wade, who will admit. - Lab Data Result diagrams: 03/02/19 15:15 03/02/19 15:15 Lab Results 03/02/19 03/02/19 03/02/19 Range/Units 15:15 15:15 15:15 WBC 9.5 (3.8-10.6) k/uL RBC 4.95 (4.30-5.90) m/uL Hgb 15.5 (13.0-17.5) gm/dL Hct 44.8 (39.0-53.0) % MCV 90.6 (80.0-100.0) fL MCH 31.4 (25.0-35.0) pg MCHC 34.6 (31.0-37.0) g/dL RDW 11.9 (11.5-15.5) % Plt Count 231 (150-450) k/uL Neutrophils % 77 % Lymphocytes % 14 % Monocytes % 6 % Eosinophils % 2 % Basophils % 1 % Neutrophils # 7.3 (1.3-7.7) k/uL Lymphocytes # 1.3 (1.0-4.8) k/uL Monocytes # 0.6 (0-1.0) k/uL Eosinophils # 0.2 (0-0.7) k/uL Basophils # 0.1 (0-0.2) k/uL PT 10.1 (9.0-12.0) sec INR 0.9 (<1.2) APTT 26.6 (22.0-30.0) sec D-Dimer 0.38 (<0.60) mg/L FEU Sodium 140 (137-145) mmol/L Potassium 4.6 (3.5-5.1) mmol/L Chloride 106 (98-107) mmol/L Carbon Dioxide 23 (22-30) mmol/L Anion Gap 11 mmol/L BUN 19 (9-20) mg/dL Creatinine 0.72 (0.66-1.25) mg/dL Est GFR (CKD-EPI)AfAm >90 (>60 ml/min/1.73 sqM) Est GFR (CKD-EPI)NonAf >90 (>60 ml/min/1.73 sqM) Glucose 93 (74-99) mg/dL Calcium 9.3 (8.4-10.2) mg/dL Total Bilirubin 0.7 (0.2-1.3) mg/dL AST 33 (17-59) U/L ALT 18 L (21-72) U/L Alkaline Phosphatase 79 (38-126) U/L Creatine Kinase 141 (55-170) U/L Troponin I (0.000-0.034) ng/mL NT-Pro-B Natriuret Pep pg/mL Total Protein 7.6 (6.3-8.2) g/dL Albumin 4.5 (3.5-5.0) g/dL 03/02/19 03/02/19 Range/Units 15:15 15:15 WBC (3.8-10.6) k/uL RBC (4.30-5.90) m/uL Hgb (13.0-17.5) gm/dL Hct (39.0-53.0) % MCV (80.0-100.0) fL MCH (25.0-35.0) pg MCHC (31.0-37.0) g/dL RDW (11.5-15.5) % Plt Count (150-450) k/uL Neutrophils % % Lymphocytes % % Monocytes % % Eosinophils % % Basophils % % Neutrophils # (1.3-7.7) k/uL Lymphocytes # (1.0-4.8) k/uL Monocytes # (0-1.0) k/uL Eosinophils # (0-0.7) k/uL Basophils # (0-0.2) k/uL PT (9.0-12.0) sec INR (<1.2) APTT (22.0-30.0) sec D-Dimer (<0.60) mg/L FEU Sodium (137-145) mmol/L Potassium (3.5-5.1) mmol/L Chloride (98-107) mmol/L Carbon Dioxide (22-30) mmol/L Anion Gap mmol/L BUN (9-20) mg/dL Creatinine (0.66-1.25) mg/dL Est GFR (CKD-EPI)AfAm (>60 ml/min/1.73 sqM) Est GFR (CKD-EPI)NonAf (>60 ml/min/1.73 sqM) Glucose (74-99) mg/dL Calcium (8.4-10.2) mg/dL Total Bilirubin (0.2-1.3) mg/dL AST (17-59) U/L ALT (21-72) U/L Alkaline Phosphatase (38-126) U/L Creatine Kinase (55-170) U/L Troponin I <0.012 (0.000-0.034) ng/mL NT-Pro-B Natriuret Pep 35 pg/mL Total Protein (6.3-8.2) g/dL Albumin (3.5-5.0) g/dL - Radiology Data Radiology results: image reviewed (Chest x-ray shows tortuous thoracic aorta which is stable. Prominent first rib that is also unchanged. No acute process seen.) Disposition Clinical Impression: Dyspnea Disposition: ADMITTED IP TO THIS HOSP Is patient prescribed a controlled substance at d/c from ED?: No Referrals: David Mann DO [Primary Care Provider] - 1-2 days Decision Time: 16:22
[2019-03-02 15:31] LABS: Basophils # (A) 0.1 k/uL (0-0.2); Basophils % (A) 1 %; Eosinophils # (A) 0.2 k/uL (0-0.7); Eosinophils % (A) 2 %; HCT 44.8 % (39.0-53.0); HGB 15.5 gm/dL (13.0-17.5); Lymphocytes # (A) 1.3 k/uL (1.0-4.8); Lymphocytes % (A) 14 %; MCH 31.4 pg (25.0-35.0); MCHC 34.6 g/dL (31.0-37.0); MCV 90.6 fL (80.0-100.0); Monocytes # (A) 0.6 k/uL (0-1.0); Monocytes % (A) 6 %; Neutrophils # (A) 7.3 k/uL (1.3-7.7); Neutrophils % (A) 77 %; Platelet Count 231 k/uL (150-450); RBC 4.95 m/uL (4.30-5.90); RDW 11.9 % (11.5-15.5); WBC 9.5 k/uL (3.8-10.6)
[2019-03-02 15:41] LABS: ALT 18 U/L (21-72); AST 33 U/L (17-59); African American GFR (CKD) >90 (>60 ml/min/1.73 sqM); Albumin 4.5 g/dL (3.5-5.0); Alkaline Phosphatase 79 U/L (38-126); Anion Gap 11 mmol/L; Blood Urea Nitrogen 19 mg/dL (9-20); Calcium 9.3 mg/dL (8.4-10.2); Carbon Dioxide 23 mmol/L (22-30); Chloride 106 mmol/L (98-107); Creatine Kinase 141 U/L (55-170); Glucose 93 mg/dL (74-99); Non-African American GFR(CKD) >90 (>60 ml/min/1.73 sqM); Potassium 4.6 mmol/L (3.5-5.1); Sodium 140 mmol/L (137-145); Total Bilirubin 0.7 mg/dL (0.2-1.3); Total Protein 7.6 g/dL (6.3-8.2)
--- NOTE | 2019-03-02 15:42 | XR ---
EXAMINATION TYPE: XR chest 2V DATE OF EXAM: 03/02/2019 COMPARISON: 04/23/2017 HISTORY: 68-year-old male shortness of breath, difficulty breathing TECHNIQUE: PA and lateral views FINDINGS: Heart upper limits of normal in size. Elongated/ectatic thoracic aorta. Mild diffuse interstitial pro minence. Prominent first rib end on the left is unchanged. No consolidation or pleural effusion. IMPRESSION: Tortuous/ectatic thoracic aorta is stable. Prominent first rib end on the left is unchanged. No acute process seen.
[2019-03-02 15:59] LABS: D-Dimer 0.38 mg/L FEU (<0.60); INR 0.9 (<1.2); Partial Thromboplastin Time 26.6 sec (22.0-30.0); Prothrombin Time 10.1 sec (9.0-12.0)
[2019-03-02] MEDS ORDERED: NITROGLYCERIN SL TABS 0.4 MG TAB SUBLINGUAL PRN (16:22)
[2019-03-02] MEDS ORDERED: ASPIRIN 81 MG PO STA (16:22)
--- NOTE | 2019-03-02 21:56 | P.HPIM ---
History of Present Illness H&P Date: 03/02/19 Chief Complaint: shortness in breath Mr. Mendoza is a 68-year-old male with a past medical history of coronary artery disease, abdominal aortic aneurysm being monitored, occasional back pain, bilateral tinnitus, coming to the hospital with a chief complaint of difficulty in breathing. Patient states that he has been feeling short of breath for the past couple of weeks. He states that his symptoms gradually worsened and he feels heaviness in his chest. His symptoms are worse on lying down. Patient denies having any PND. He denies having any lower extremity swelling. No recent travel. Patient has history of congestive heart failure 20 years back and he feels that his symptoms are somewhat similar to that. Patient denies having any chest pain. No palpitations. Patient has mild cough that is nonproductive. No fevers or chills. In the emergency room patient had EKG done showing normal sinus rhythm. No acute ST-T wave changes. Has also had a chest x-ray showing tortuous thoracic aorta and prominent first rib, no acute cardiopulmonary process. His blood work showed troponin less than 0.012. The rest of his labs were within normal limits. The patient has been admitted for concerns of acute coronary syndrome versus CHF. Review of Systems REVIEW OF SYSTEMS: PSYCH: No anxiety or depression NEURO: No facial droop, No speech abnormalities. VASCULAR: History aortic aneurysm HEMATOLOGIC: No history of easy bleeding and bruising . No recent infections . RESPIRATORY: No cough, No SOB, No chest discomfort. IMMUNE: No infections INTEGUMENT: no rashes OPHTHALMOLOGIC: No blurry vision and no eye discharge : No dysuria or hematuria CARDIAC: No chest pain or paroxysmal nocturnal dyspnea MUSCULOSKELETAL : History of osteoarthritis and rheumatoid arthritis GI: No abdominal pain, Nausea or vomiting. No constipation or diarrhea. Past Medical History Past Medical History: Coronary Artery Disease (CAD) Additional Past Medical History / Comment(s): AAA being monitored, occasional back pain, bilateral tinnitis. History of Any Multi-Drug Resistant Organisms: None Reported Past Surgical History: Appendectomy, Hernia Repair, Tonsillectomy Additional Past Surgical History / Comment(s): Bilateral inguinal hernia repairs done twice. Past Anesthesia/Blood Transfusion Reactions: No Reported Reaction Past Psychological History: No Psychological Hx Reported Smoking Status: Never smoker Past Alcohol Use History: None Reported Past Drug Use History: None Reported - Past Family History Father Family Medical History: Cancer Additional Family Medical History / Comment(s): Father at the age of 75yrs from metastatic bladder cancer. Mother Family Medical History: No Reported History Additional Family Medical History / Comment(s): Mother is 85yrs old and healthy. Medications and Allergies Home Medications Medication Instructions Recorded Confirmed Type Ibuprofen/Diphenhydramine HCl 1 cap PO HS 03/02/19 03/02/19 History [Advil Pm Liqui-Gels] Naproxen Sodium [Aleve] 220 mg PO QAM 03/02/19 03/02/19 History valACYclovir [Valtrex] 250 mg PO DAILY 03/02/19 03/02/19 History Allergies Allergy/AdvReac Type Severity Reaction Status Date / Time No Known Allergies Allergy Verified 03/02/19 19:50 Physical Exam Vitals: Vital Signs Temp Pulse Resp BP Pulse Ox 03/02/19 19:00 63 16 153/99 97 03/02/19 18:20 65 16 135/97 96 03/02/19 18:00 63 18 156/103 96 03/02/19 17:00 67 151/104 03/02/19 16:40 69 151/104 100 03/02/19 16:20 64 146/108 100 03/02/19 16:00 71 97 03/02/19 15:40 70 99 03/02/19 15:20 146/102 96 03/02/19 15:15 16 03/02/19 15:08 98 03/02/19 14:44 98.1 F 72 18 153/96 99 Intake and Output 03/02/19 03/02/19 03/02/19 06:59 14:59 22:59 Other: Weight 90.718 kg GEN. APPEARANCE: lying in bed comfortably. No acute distress. HEENT : Present: Round and reactive to light. No icterus. No pallor. RESPIRATORY EXAM: Bilateral breath sounds are positive. Slightly diminished at the lower lung bases CARDIOVASCULAR EXAM: S1 and S2 heard. GI/ABDOMINAL EXAM: soft, normal bowel sounds. No guarding and No rigidity. EXTREMITIES EXAM: no pedal edema NEUROLOGICAL EXAM: alert, oriented X3, no focal deficits. PSYCHIATRIC EXAM: normal affect, normal mood SKIN EXAM: warm, dry, intact, normal color. 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 We will also get an echocardiogram. Patient has been restarted on his home medications. The treatment plan was discussed in detail with the patient at bedside. Further recommendations to follow depending on the progress of the patient.
[2019-03-02] MEDS: MELATONIN 3 MG TABLET PO PRN (22:57)
[2019-03-02] MEDS: HYDROCHLOROTHIAZIDE 25 MG TAB PO SCH (22:57)
[2019-03-03 04:33] LABS: Cholesterol 137 mg/dL (<200); HDL Cholesterol 37 mg/dL (40-60); LDL Cholesterol,Calculated 75 mg/dL (0-99); Triglycerides 124 mg/dL (<150)
[2019-03-03] MEDS ORDERED: ASPIRIN 325 MG TAB PO SCH (09:00)
--- NOTE | 2019-03-03 10:07 | P.CRDCN ---
History of Present Illness History of present illness: HISTORY OF PRESENTING ILLNESS This is a pleasant 68-year-old male past medical history significant for family aortic aneurysm. He presented with shortness of breath. He follows in the office with Dr. Elam. We have been asked to see him in consultation for shortness of breath. He is seen and examined resting comfortably in bed in no acute distress. He states for the previous 3 weeks he has been experiencing shortness of breath and cough. His shortness of breath is not related to activity or exertion. It happens intermittently with no specific aggravating or alleviating factors. Blood pressure was elevated on admission and PCP started him on hydrochlorothiazide last evening. He is also complaining of feel foggy overall. On exam he has a flat affect with a blank stare and is slow to respond. He seems to have altered mental status. 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 No family present during my exam. DIAGNOSTICS EKG reveals sinus mechanism, heart rate [address] or T-wave abnormalities, LVH. Chest xray tortuous aorta with no acute cardiopulmonary process. Laboratory reviewed, cardiac enzymes negative x3, CBC unremarkable, d-dimer 0.38, sodium 140, potassium 4.6, creatinine 0.72, LDL 75, proBNP 35. He takes no daily cardiac medications. Most recent stress test performed April 2017 revealed good exercise tolerance negative stress test by EKG and echocardiographic criteria. Most recent echocardiogram 04/2017 reveals preserved LV systolic function with EF 55-60%, normal aortic root. REVIEW OF SYSTEMS At the time of my exam: CONSTITUTIONAL: Denies fever or chills. CARDIOVASCULAR: Complains of shortness of breath. Denies chest pain, orthopnea, PND or palpitations. RESPIRATORY: Complains of cough. GASTROINTESTINAL: Denies abdominal pain, diarrhea, constipation, nausea or vomiting. MUSCULOSKELETAL: Denies myalgias. NEUROLOGIC: Denies numbness, tingling or weakness. ENDOCRINE: Denies fatigue, weight change, polydipsia or polyurina. GENITOURINARY: Denies burning, hematuria or urgency with micturation. HEMATOLOGIC: Denies history of anemia or bleeding. PHYSICAL EXAMINATION Blood pressure 136/85 heart rate 57 afebrile and maintaining oxygen saturaiton on nasal cannula. CONSTITUTIONAL: No apparent distress. Flat affect. HEENT: Head is normocephalic. Pupils are equal, round. Sclerae anicteric. Mucous membranes of the mouth are moist. No JVD. No carotid bruit. CHEST EXAMINATION: Lungs are clear to auscultation. No chest wall tenderness is noted on palpation or with deep breathing. HEART EXAMINATION: Regular rate and rhythm. S1, S2 heard. No murmurs, gallops or rub. ABDOMEN: Soft, nontender. Positive bowel sounds. EXTREMITIES: 2+ peripheral pulses, no lower extremity edema and no calf tenderness. NEUROLOGIC EXAMINATION: Patient is awake, alert and oriented to self and situation. ASSESSMENT Shortness of breath, negative d-dimer, normal proBNP and clinically euvolemic. An acute coronary event has been ruled out. Altered mental status Hypertension, new onset History of distal abdominal aortic aneurysm. 3.3 cm 2017 PLAN An acute coronary event has been ruled out. Clinically he is euvolemic with no heart failure. Discontinue hydrochlorothiazide and initiate on losartan 50 mg daily. Decrease aspirin to 81 mg daily. Check carotid doppler bilaterally. Check thyroid function. Recommend neurology evaluation. Will consider stress testing tomorrow if continues to be symptomatic. Thank you kindly for this consultation. Nurse Practitioner note has been reviewed, I agree with a documented findings and plan of care. Patient was seen and examined. Past Medical History Past Medical History: Coronary Artery Disease (CAD) Additional Past Medical History / Comment(s): AAA being monitored, occasional back pain, bilateral tinnitis. History of Any Multi-Drug Resistant Organisms: None Reported Past Surgical History: Appendectomy, Hernia Repair, Tonsillectomy Additional Past Surgical History / Comment(s): Bilateral inguinal hernia repairs done twice. Past Anesthesia/Blood Transfusion Reactions: No Reported Reaction Past Psychological History: No Psychological Hx Reported Smoking Status: Never smoker Past Alcohol Use History: None Reported Past Drug Use History: None Reported - Past Family History Father Family Medical History: Cancer Additional Family Medical History / Comment(s): Father at the age of 75yrs from metastatic bladder cancer. Mother Family Medical History: No Reported History Additional Family Medical History / Comment(s): Mother is 85yrs old and healthy. Medications and Allergies Home Medications Medication Instructions Recorded Confirmed Type Ibuprofen/Diphenhydramine HCl 1 cap PO HS 03/02/19 03/02/19 History [Advil Pm Liqui-Gels] Naproxen Sodium [Aleve] 220 mg PO QAM 03/02/19 03/02/19 History valACYclovir [Valtrex] 250 mg PO DAILY 03/02/19 03/02/19 History Allergies Allergy/AdvReac Type Severity Reaction Status Date / Time No Known Allergies Allergy Verified 03/02/19 19:50 Physical Exam Vitals: Vital Signs Temp Pulse Pulse Resp BP BP BP 03/03/19 07:00 97.7 F 57 L 18 136/85 03/03/19 04:00 97.5 F L 58 L 18 126/80 03/03/19 00:00 97.6 F 59 L 18 120/75 03/02/19 19:53 98.2 F 63 18 157/99 03/02/19 19:00 63 16 153/99 03/02/19 18:20 65 16 135/97 03/02/19 18:00 63 18 156/103 03/02/19 17:00 67 151/104 03/02/19 16:40 69 151/104 03/02/19 16:20 64 146/108 03/02/19 16:00 71 03/02/19 15:40 70 03/02/19 15:20 146/102 03/02/19 15:15 16 03/02/19 15:08 03/02/19 14:44 98.1 F 72 18 153/96 Pulse Ox 03/03/19 07:00 99 03/03/19 04:00 95 03/03/19 00:00 96 03/02/19 19:53 99 03/02/19 19:00 97 03/02/19 18:20 96 03/02/19 18:00 96 03/02/19 17:00 03/02/19 16:40 100 03/02/19 16:20 100 03/02/19 16:00 97 03/02/19 15:40 99 03/02/19 15:20 96 03/02/19 15:15 03/02/19 15:08 98 03/02/19 14:44 99 Intake and Output 03/02/19 03/03/19 03/03/19 22:59 06:59 14:59 Other: Voiding Method Toilet Toilet Toilet # Voids 1 Results 03/02/19 15:15 03/02/19 15:15 Cardiac Enzymes 03/02/19 03/02/19 03/02/19 Range/Units 15:15 15:15 20:40 AST 33 (17-59) U/L Troponin I <0.012 <0.012 (0.000-0.034) ng/mL 03/03/19 Range/Units 03:24 AST (17-59) U/L Troponin I <0.012 (0.000-0.034) ng/mL Coagulation 03/02/19 Range/Units 15:15 PT 10.1 (9.0-12.0) sec APTT 26.6 (22.0-30.0) sec Lipids 03/03/19 Range/Units 03:25 Triglycerides 124 (<150) mg/dL Cholesterol 137 (<200) mg/dL HDL Cholesterol 37 L (40-60) mg/dL CBC 03/02/19 Range/Units 15:15 WBC 9.5 (3.8-10.6) k/uL RBC 4.95 (4.30-5.90) m/uL Hgb 15.5 (13.0-17.5) gm/dL Hct 44.8 (39.0-53.0) % Plt Count 231 (150-450) k/uL Comprehensive Metabolic Panel 03/02/19 Range/Units 15:15 Sodium 140 (137-145) mmol/L Potassium 4.6 (3.5-5.1) mmol/L Chloride 106 (98-107) mmol/L Carbon Dioxide 23 (22-30) mmol/L BUN 19 (9-20) mg/dL Creatinine 0.72 (0.66-1.25) mg/dL Glucose 93 (74-99) mg/dL Calcium 9.3 (8.4-10.2) mg/dL AST 33 (17-59) U/L ALT 18 L (21-72) U/L Alkaline Phosphatase 79 (38-126) U/L Total Protein 7.6 (6.3-8.2) g/dL Albumin 4.5 (3.5-5.0) g/dL Current Medications Generic Name Dose Route Start Last Admin Trade Name Freq PRN Reason Stop Dose Admin Aspirin 81 mg 03/04/19 09:00 Aspirin PO DAILY PETR Losartan Potassium 50 mg 03/03/19 09:45 Cozaar PO DAILY PETR Melatonin 3 mg 03/02/19 22:32 03/02/19 22:57 Melatonin PO 3 mg HS PRN Administration Insomnia Nitroglycerin 0.4 mg 03/02/19 16:22 Nitrostat SUBLINGUAL Q5M PRN Chest Pain Sodium Chloride 10 ml 03/02/19 21:00 03/02/19 22:57 Saline Flush IV 10 ml BID PETR Administration Valacyclovir HCl 250 mg 03/03/19 09:00 Valtrex PO DAILY PETR Intake and Output 03/02/19 03/03/19 03/03/19 22:59 06:59 14:59 Other: Voiding Method Toilet Toilet Toilet # Voids 1 03/02/19 15:15 03/02/19 15:15
[2019-03-03] MEDS: valACYclovir 500 MG TAB PO SCH (11:03)
[2019-03-03] MEDS: LOSARTAN 50 MG TAB PO SCH (11:03)
[2019-03-03] MEDS: HYDROCHLOROTHIAZIDE 25 MG TAB PO SCH (11:06)
--- NOTE | 2019-03-03 11:11 | US ---
EXAMINATION TYPE: US carotid duplex BILAT DATE OF EXAM: 03/03/2019 COMPARISON: NONE CLINICAL HISTORY: sob, ams. AMS EXAM MEASUREMENTS: RIGHT: Peak Systolic Velocity (PSV) cm/sec ----- Right CCA: 82.7 ----- Right ICA: 75.5 ----- Right ECA: 75.5 ICA/CCA ratio: 0.9 RIGHT: End Diastole cm/sec ----- Right CCA: 24.6 ----- Right ICA: 14.4 ----- Right ECA: 11.5 LEFT: Peak Systolic Velocity (PSV) cm/sec ----- Left CCA: 78.4 ----- Left ICA: 76.9 ----- Left ECA: 76.9 ICA/CCA ratio: 1.0 LEFT: End Diastole cm/sec ----- Left CCA: 26.0 ----- Left ICA: 21.7 ----- Left ECA: 12.9 VERTEBRALS (direction of flow): Right Vertebral: Antegrade Left Vertebral: Antegrade Rhythm: Normal No significant stenosis seen IMPRESSION: Mild degree of grayscale atheromatous plaquing with no sonographically evident hemodynam ically significant stenosis within either visualized carotid arterial system. Criteria for Assigning % of Stenosis / Diameter reduction (Estimation based on the indirect measurements of the internal carotid artery velocities (ICA PSV). 1. Normal (no stenosis)=ICA PSV < 125 cm/s: ratio < 2.0: ICA EDV<40 cm/s. 2. Less than 50% stenosis=ICA PSV < 125 cm/s: ratio < 2.0: ICA EDV<40 cm/s. 3. 50 to 69% stenosis=ICA PSV of 125 to 230 cm/s: ration 2.0 ? 4.0: ICA EDV 40-100 cm/s. 4. Greater than 70% stenosis to near occlusion= ICA PSV > 230 cm/s: ratio > 4.0: ICA EDV > 100 cm/s. 5. Near occlusion= ICA PSV velocities may be low or undetectable: variable ratio and ICA EDV. 6. Total occlusion=unable to detect flow.
--- NOTE | 2019-03-03 12:46 | ECHOF ---
Referral Reason:Dyspnea MEASUREMENTS -------- HEIGHT: 175.3 cm WEIGHT: 90.7 kg BP: 126/80 RVIDd: 2.8 cm (< 3.3) IVSd: 1.0 cm (0.6 - 1.1) LVIDd: 4.3 cm (3.9 - 5.3) LVPWd: 1.3 cm (0.6 - 1.1) IVSs: 1.7 cm LVIDs: 2.5 cm LVPWs: 1.6 cm LAESV Index (A-L): 27.66 ml/m Ao Diam: 3.6 cm (2.0 - 3.7) AV Cusp: 1.6 cm (1.5 - 2.6) LA Diam: 2.5 cm (2.7 - 3.8) MV EXCURSION: 20.824 mm (> 18.000) MV EF SLOPE: 124 mm/s (70 - 150) EPSS: 0.6 cm MV E Josafat: 0.47 m/s MV DecT: 272 ms MV A Josafat: 0.60 m/s MV E/A Ratio: 0.78 RAP: 5.00 mmHg RVSP: 16.42 mmHg TAPSE: 33.56 mm FINDINGS -------- Sinus rhythm. This was a technically good study. The left ventricular size is normal. Left ventricular wall thickness is normal. Overall left vent ricular systolic function is normal with, an EF between 55 - 60 %. The diastolic filling pattern is normal for the age of the patient 7.77. The right ventricle is normal in size. The right ventricular systolic function is normal. The left atrial size is normal. Normal LA size by volume 22+/-6 ml/m2. The right atrial size is normal. Interatrial and interventricular septum intact. The aortic valve is trileaflet and appears structurally normal. The mitral valve is normal. There is trace mitral regurgitation. The tricuspid valve appears structurally normal. Mild tricuspid regurgitation present. Right vent ricular systolic pressure is normal at < 35 mmHg. There is no pulmonic regurgitation present. The aortic root is dilated measuring 3.8 cm. Normal inferior vena cava with normal inspiratory collapse consistent with estimated right atrial pre ssure of 5 mmHg. There is no pericardial effusion. CONCLUSIONS -------- 1. Sinus rhythm. 2. This was a technically good study. 3. The left ventricular size is normal. 4. Left ventricular wall thickness is normal. 5. The diastolic filling pattern is normal for the age of the patient 7.77 6. The right ventricle is normal in size. 7. The right ventricular systolic function is normal. 8. The left atrial size is normal. 9. Normal LA size by volume 22+/-6 ml/m2. 10. The right atrial size is normal. 11. Interatrial and interventricular septum intact. 12. The aortic valve is trileaflet and appears structurally normal. 13. The mitral valve is normal. 14. There is trace mitral regurgitation. 15. The tricuspid valve appears structurally normal. 16. Mild tricuspid regurgitation present. 17. Right ventricular systolic pressure is normal at < 35 mmHg. 18. There is no pulmonic regurgitation present. 19. The aortic root is dilated measuring 3.8 cm. 20. Normal inferior vena cava with normal inspiratory collapse consistent with estimated right atrial pressure of 5 mmHg. 21. There is no pericardial effusion. BULW[employer] CARPENTER: Isa Galindo RDCS
--- NOTE | 2019-03-03 13:37 | P.CNNES ---
History of Present Illness Consult date: 03/03/19 Requesting physician: Nel Houston Reason for Consult: Altered mental status History of Present Illness: Patient is a 68-year-old male who came to the hospital for shortness of breath for which cardiology has seen the patient. Patient was noted to have some altered mental status which prompted this neurology consultation. Patient states that for the past 1 year he has been having episodes of mental fogginess. Patient states it could be a very amanda day and he "can't hear right", and "can't focus right". It comes and goes, and the symptoms may last for 1-2 days. These episodes are occurring about once or twice a week. He has never passed out. He is still fully oriented, not confused and can't drive. He denies depression. At present he feels slightly foggy. The current episode started 2 days ago and it was "bad" as per patient. Today's better but not gone yet. Patient also mentioned that he has been feeling "not normal" for the past 2 years. He drags right leg. He was diagnosed with Parkinson's by his primary physician. Patient does not remember seeing a neurologist in the past. Denies hypertension, diabetes, tobacco alcohol or drug use. Patient's blood tests shows normal CBC, CMP, TSH 3.79, cholesterol is 137, LDL 75, HDL 37 and triglycerides 124. Patient had a carotid Doppler performed today, which revealed mild degree of grayscale atheromatous plaquing with no sonographically evident hemodynamically significant stenosis within either visualized carotid arterial system. Antegrade flow in both vertebral arteries. Patient had a 2-D echo which shows normal sinus rhythm, EF 55-60%. Interatrial and interventricular septum intact. EKG showed normal sinus rhythm with minimal voltage criteria for LVH. Patient had a computed tomography scan of head on 02/17/2019, which revealed no acute infarct. 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 Small vessel ischemic disease. Chronic microangiopathy with mild likely, age-related volume loss. I reviewed computed tomography scan, no evidence of hydrocephalus. Small lacunar involving the right anterior limb of internal capsule. Review of Systems As mentioned in detail. Denies any headache, dysphagia, dysarthria. He states that he has some blurred vision in the periphery, almost like "tunnel vision". Patient complains of some shortness of breath. Denies any nausea vomiting diarrhea. Patient has mild neck pain, but no back pain. Denies tremors. Balance is not as good. He feels he drags the right leg. Past Medical History Past Medical History: Coronary Artery Disease (CAD) Additional Past Medical History / Comment(s): AAA being monitored, occasional back pain, bilateral tinnitis. History of Any Multi-Drug Resistant Organisms: None Reported Past Surgical History: Appendectomy, Hernia Repair, Tonsillectomy Additional Past Surgical History / Comment(s): Bilateral inguinal hernia repairs done twice. Past Anesthesia/Blood Transfusion Reactions: No Reported Reaction Past Psychological History: No Psychological Hx Reported Smoking Status: Never smoker Past Alcohol Use History: None Reported Past Drug Use History: None Reported - Past Family History Father Family Medical History: Cancer Additional Family Medical History / Comment(s): Father at the age of 75yrs from metastatic bladder cancer. Mother Family Medical History: No Reported History Additional Family Medical History / Comment(s): Mother is 85yrs old and healthy. Medications and Allergies Home Medications Medication Instructions Recorded Confirmed Type Ibuprofen/Diphenhydramine HCl 1 cap PO HS 03/02/19 03/02/19 History [Advil Pm Liqui-Gels] Naproxen Sodium [Aleve] 220 mg PO QAM 03/02/19 03/02/19 History valACYclovir [Valtrex] 250 mg PO DAILY 03/02/19 03/02/19 History Allergies Allergy/AdvReac Type Severity Reaction Status Date / Time No Known Allergies Allergy Verified 03/02/19 19:50 Physical Examination - Vital Signs Vital Signs: Vital Signs Temp Pulse Pulse Resp BP BP BP 03/03/19 11:00 98.1 F 70 18 132/80 03/03/19 07:00 97.7 F 57 L 18 136/85 03/03/19 04:00 97.5 F L 58 L 18 126/80 03/03/19 00:00 97.6 F 59 L 18 120/75 03/02/19 19:53 98.2 F 63 18 157/99 03/02/19 19:00 63 16 153/99 03/02/19 18:20 65 16 135/97 03/02/19 18:00 63 18 156/103 03/02/19 17:00 67 151/104 03/02/19 16:40 69 151/104 03/02/19 16:20 64 146/108 03/02/19 16:00 71 03/02/19 15:40 70 03/02/19 15:20 146/102 03/02/19 15:15 16 03/02/19 15:08 03/02/19 14:44 98.1 F 72 18 153/96 Pulse Ox 03/03/19 11:00 97 03/03/19 07:00 99 03/03/19 04:00 95 03/03/19 00:00 96 03/02/19 19:53 99 03/02/19 19:00 97 03/02/19 18:20 96 03/02/19 18:00 96 03/02/19 17:00 03/02/19 16:40 100 03/02/19 16:20 100 03/02/19 16:00 97 03/02/19 15:40 99 03/02/19 15:20 96 03/02/19 15:15 03/02/19 15:08 98 03/02/19 14:44 99 Intake and Output 03/02/19 03/03/19 03/03/19 22:59 06:59 14:59 Intake Total 340 Balance 340 Intake: Oral 240 Other 100 Other: Voiding Method Toilet Toilet Toilet # Voids 1 On examination patient is an elderly male, in no distress. Patient is alert and awake, but has slow mentation. Speech and language functions are normal. Attention and concentration fund of knowledge is adequate. He knows that he is in [facility] in [facility] and that it is 03/03/2019, name of the current president, his age and date of . Patient has negative visuospatial apraxia, but mildly positive palmomental reflex bilaterally. On cranial examination pupils are round and reactive to light, visual roman are full on confrontation. Extraocular muscles are intact with no nystagmus. Face is symmetric and tongue protrudes to the midline. Palatal elevation and sensation normal. On muscle strength testing there is no pronator drift and the strength is normal in arms and legs. Reflexes are 2+ in the upper limbs, 3+ at the knees, 2+ ankles and plantar is possible up on the right, and questionable up on the left. Sensory touch is equal with no neglect. No ataxia for [id number], or [id number]-ed-[id number] testing. Tone is mildly increased in the left arm but normal on the right. Bulk of muscles normal. Patient walks with slightly decreased left arm swing. Results - Laboratory Findings CBC and BMP: 03/02/19 15:15 03/02/19 15:15 Abnormal Lab Findings: Abnormal Labs 03/02/19 03/03/19 15:15 03:25 ALT 18 L HDL Cholesterol 37 L Assessment and Plan Assessment: * Recurrent episodes of altered mental status, (perceived as mental fogginess), off and on for last 1 year, unclear etiology. Patient's examination shows mild spasticity, positive palmomental reflex, and slightly increased tone in the left arm as compared to the right. Computed tomography scan of the head showed an old lacunar stroke involving the right anterior limb of internal capsule. Patient has mild parkinsonian features, which I suspect is vascular in nature. Doubt Parkinson's disease at this time. Patient may have some upcoming neurodegenerative process, not fully manifested yet. Plan: * Patient had a normal carotid Doppler and a 2-D echo. * We will check vitamin B12, folate, RPR. Patient's lipids are well controlled. * Agree with starting aspirin 81 mg daily. * May consider checking EEG as an outpatient. * Suggest follow-up with a neurologist as an outpatient, to rule out underlying cognitive impairment. * Otherwise clear for discharge from neurology point.
--- NOTE | 2019-03-03 14:09 | P.PN ---
Subjective Patient is admitted for chest pain and shortness of breath and the patient was also having bilateral tinnitus patient didn't appear to be confused to me with the apparently he was confused when the cardiology valid to the patient and neurology was consulted because of that reason and neurology obtained a carotid Doppler which did not show any significant occlusive disease but the patient appears to have had a lacunar infarct which appears to be old and he does have a flat affect because of which the recommending at least a small dose of aspirin along with neurology evaluation as an outpatient for possible Parkinson's, I didn't make him walk around but patient doesn't have any parkinsonian tremor or rigidity Constitutional: Denied any fatigue denied any fever. Cardio vascular: denied any chest pain, palpitations Gastrointestinal denied any nausea vomiting Pulmonary: Denied any shortness of breath cough Neurologic denied any new focal deficits All inpatient medications were reviewed and appropriate changes in these medications as dictated in the interval history and assessment and plan. Objective - Vital Signs Vital signs: Vital Signs Temp 98.1 F 03/03/19 11:00 Pulse 70 03/03/19 11:00 Resp 18 03/03/19 11:00 BP 132/80 03/03/19 11:00 Pulse Ox 97 03/03/19 11:00 Intake & Output 03/02/19 03/03/19 03/03/19 18:59 06:59 18:59 Intake Total 340 Balance 340 Weight 90.718 kg Intake: Oral 240 Other 100 Other: Voiding Method Toilet Toilet # Voids 1 - Exam PHYSICAL EXAMINATION: GENERAL: The patient is alert and oriented x3, not in any acute distress. Well d eveloped, well nourished. HEENT: Pupils are round and equally reacting to light. EOMI. No scleral icterus. No conjunctival pallor. Normocephalic, atraumatic. No pharyngeal erythema. No thyromegaly. CARDIOVASCULAR: S1 and S2 present. No murmurs, rubs, or gallops. PULMONARY: Chest is clear to auscultation, no wheezing or crackles. ABDOMEN: Soft, nontender, nondistended, normoactive bowel sounds. No palpable organomegaly. MUSCULOSKELETAL: No joint swelling or deformity. EXTREMITIES: No cyanosis, clubbing, or pedal edema. NEUROLOGICAL: Gross neurological examination did not reveal any focal deficits. SKIN: No rashes. - Labs CBC & Chem 7: 03/02/19 15:15 03/02/19 15:15 Labs: Abnormal Lab Results - Last 24 Hours (Table) 03/02/19 03/03/19 Range/Units 15:15 03:25 ALT 18 L (21-72) U/L HDL Cholesterol 37 L (40-60) mg/dL Assessment and Plan Plan: -Chest pressure, shortness of breath both of which improved patient will undergo stress test tomorrow echocardiogram did not show any significant abnormality -Flat affect possible radial Parkinson's further evaluation as an outpatient -Cerebral vascular accident old with old lacunar stroke and internal capsular area for which patient will be started on aspirin -Osteoarthritis -Bilateral tinnitus and recurrent herpes simplex and the past for which patient is on valacyclovir which will be continued
[2019-03-03] MEDS: MELATONIN 3 MG TABLET PO PRN (20:44)
[2019-03-04] MEDS ORDERED: ASPIRIN 81 MG PO SCH (09:00)
--- NOTE | 2019-03-04 09:57 | P.PN ---
Subjective HISTORY OF PRESENTING ILLNESS This is a pleasant 68-year-old male past medical history significant for family aortic aneurysm. He presented with shortness of breath. He follows in the office with Dr. Elam. He is seen and examined sitting up in the chair in no acute distress. He continues to feel short of breath with no specific aggra vating factor. He has been seen in consultation by neurology and recommend outpatient EEG, suspect neurodegenerative process not fully manifested. He denies chest pain, dizziness or palpitations. Blood pressure 130/86 heart rate 66 afebrile and maintaining oxygen saturation on room air. Echocardiogram revealed preserved LV systolic function with ejection fraction 55-60% and normal diastolic filling pattern. Aortic root dilated at 3.8 cm. Carotid Doppler reveals mild degree of grayscale erythematous plaquing with no sonographic evident hemodynamically significant stenosis. PHYSICAL EXAMINATION Blood pressure 136/85 heart rate 57 afebrile and maintaining oxygen saturaiton on nasal cannula. CONSTITUTIONAL: No apparent distress. Flat affect. HEENT: Head is normocephalic. Pupils are equal, round. Sclerae anicteric. Mucous membranes of the mouth are moist. No JVD. No carotid bruit. CHEST EXAMINATION: Lungs are clear to auscultation. No chest wall tenderness is noted on palpation or with deep breathing. HEART EXAMINATION: Regular rate and rhythm. S1, S2 heard. No murmurs, gallops or rub. ABDOMEN: Soft, nontender. Positive bowel sounds. EXTREMITIES: 2+ peripheral pulses, no lower extremity edema and no calf tenderness. NEUROLOGIC EXAMINATION: Patient is awake, alert and oriented to self and situation. ASSESSMENT Shortness of breath, negative d-dimer, normal proBNP and clinically euvolemic. An acute coronary event has been ruled out. Altered mental status Hypertension, new onset History of distal abdominal aortic aneurysm. 3.3 cm 2017 PLAN Clear from a neurology standpoint for outpatient work-up. Continues to feel short of breath with no etiology at this point. Will proceed with stress echocardiogram to assess for stress induced ischemia. Nurse Practitioner note has been reviewed, I agree with a documented findings and plan of care. Patient was seen and examined. Objective - Vital Signs Vital signs: Vital Signs Temp 97.9 F 03/04/19 07:44 Pulse 66 03/04/19 07:44 Resp 18 03/04/19 07:44 BP 130/86 03/04/19 07:44 Pulse Ox 97 11/20/19 07:44 Intake & Output 03/03/19 03/04/19 03/04/19 18:59 06:59 18:59 Intake Total 1180 Balance 1180 Intake: Oral 480 Other 700 Other: Voiding Method Toilet Toilet Toilet # Voids 1 - Labs CBC & Chem 7: 03/02/19 15:15 03/02/19 15:15
--- NOTE | 2019-03-04 11:04 | P.PN ---
Subjective Progress Note Date: 03/04/19 Patient states his mental fogginess has resolved. Continue to have slow mentation. Denies any new neurological symptoms. Patient states that he underwent prostate biopsy few months ago and since then he has developed urinary urgency. Objective - Vital Signs Vital signs: Vital Signs Temp 97.9 F 03/04/19 07:44 Pulse 66 03/04/19 07:44 Resp 18 03/04/19 07:44 BP 130/86 03/04/19 07:44 Pulse Ox 97 03/04/19 07:44 Intake & Output 03/03/19 03/04/19 03/04/19 18:59 06:59 18:59 Intake Total 1180 Balance 1180 Intake: Oral 480 Other 700 Other: Voiding Method Toilet Toilet Toilet # Voids 1 - Exam Patient's mental status, speech and language functions are stable. Continues to have slightly slow mentation. Sometimes prolonged latency time to answer questions. Patient has decreased amount of eye blinking. He has masked face. Visual roman are full, face is symmetric. Muscle strength is normal in the arms and legs. Reflexes are brisk in the lower extremities, 3 at the knees, 2+ ankles and plantars are questionably up bilaterally. Tone is increased only in the left arm mildly. Patient walks fairly stable but has difficulty walking tandem, Romberg slightly positive. - Labs CBC & Chem 7: 03/02/19 15:15 03/02/19 15:15 Assessment and Plan Assessment: * Recurrent episodes of altered mental status, (perceived as mental fogginess), off and on for last 1 year, unclear etiology. Patient's examination shows mild spasticity, positive palmomental reflex, and slightly increased tone in the left arm as compared to the right. Computed tomography scan of the head showed an old lacunar stroke involving the right anterior limb of internal capsule. Patient has mild parkinsonian features, which I suspect is vascular in nature. Doubt Parkinson's disease at this time. Patient may have some upcoming neurodegenerative process, not fully manifested yet. Plan: * Patient had a normal carotid Doppler and a 2-D echo. * B12 normal 524, folate 14.0, TSH normal 3.79. Patient's lipids are well controlled with total cholesterol 137, LDL 75 HDL 37 triglycerides 124. RPR nonreactive. * Agree with starting aspirin 81 mg daily. * May consider checking EEG as an outpatient. * Suggest follow-up with a neurologist as an outpatient, to rule out underlying cognitive impairment. Will check an MRI of the brain and cervical spine. * Otherwise clear for discharge from neurology point.
[2019-03-04] MEDS: LOSARTAN 50 MG TAB PO SCH (11:46)
[2019-03-04] MEDS: valACYclovir 500 MG TAB PO SCH (11:46)
[2019-03-04 12:05] VITALS: BP 143/100; PULSE 90; RESP 17; TEMP 98.1
[2019-03-04] MEDS ORDERED: LOSARTAN 50 MG TAB PO STA (12:24)
--- NOTE | 2019-03-04 14:09 | ECHOS ---
STRESS ECHOCARDIOGRAM INDICATIONS: Chest pain. MEDICATIONS: Aleve, Valtrex, Advil PM BASELINE HEART RATE: 71 BASELINE BLOOD PRESSURE: 111/75 MAXIMUM HEART RATE: 137 MAXIMUM BLOOD PRESSURE: 161/82 85% MPHR: 131 100% MPHR: 154 METS: 9.1 MAXIMUM STAGE REACHED: 3 TOTAL EXERCISE TIME: 7:30 CLINICAL INFORMATION: Baseline EKG revealed normal sinus rhythm without significant ST changes. Patient walked on a standard Darryl protocol for 7.5 minute, achieved a maximal heart rate of 137 beats per minute, developed fatigue and shortness of breath but did not have any angina or arrhythmia. EKG did not reveal any ST-segment changes by ischemia. By EKG criteria, this is a negative stress test with a fair exercise capacity. Baseline echo images revealed normal wall motion and wall thickening of all segments. At peak exercise there was good augmentation of left ventricular wall motion and wall thickening of all segments suggesting that there is no evidence of stress-induced ischemia on this study. IMPRESSION: 1. Fair exercise capacity with a negative stress test by EKG criteria. 2. Normal stress echocardiogram without evidence of ischemia. MMODL / IJN: [id number] /
--- NOTE | 2019-03-04 14:57 | MR ---
EXAMINATION TYPE: MR brain wo con DATE OF EXAM: 03/04/2019 COMPARISON: CT brain from 15 days ago. HISTORY: AMS, imbalance, parkinsonism TECHNIQUE: Multiplanar, multisequence imaging of the brain and brainstem is performed without IV cont rast. FINDINGS: Diffusion weighted images demonstrate no evidence of a recent infarct or other diffusion abnormality. There is no worrisome extra-axial fluid collection. There is mild ventricular and sulcal prominence r edemonstrated. There are some scattered foci of T2 hyperintensity larger and more numerous in the per iventricular region. Findings presume the basis of proximal or proximal vessel ischemic change. Midline structures demonstrate normal morphology. Low lying cerebellar tonsils into foramen magnum me asured 7 to 8 mm consistent with subtle Chiari type I malformation correlates with CT axial image 12. Normal vascular flow voids are present. Dominant left vertebral artery incidentally noted. The visua lized sinuses are clear and the globes are intact. IMPRESSION: Background mild diffuse cerebral atrophy and mild to moderate chronic small vessel ischem ic changes. Underlying subtle Chiari type I malformation noted. No hydrocephalus. No acute infarct is present.
--- NOTE | 2019-03-04 15:36 | P.DS ---
Providers Date of admission: 03/04/19 09:11 Expected date of discharge: 03/04/19 Attending physician: Lizette Kidd Consults: 03/02/19 16:22 Consult Physician Urgent Consulting Provider: Js Benjamin Consult Reason/Comments: dyspnea Do you want consulting provider notified?: Yes 03/03/19 09:31 Consult Physician Routine Consulting Provider: Ryann Tse Consult Reason/Comments: altered mental status Do you want consulting provider notified?: Yes Primary care physician: [facility] Course: Final diagnosis -Chest pressure, shortness of breath -Flat affect possible Parkinson's further evaluation as an outpatient -Cerebral vascular accident old with old lacunar stroke and internal capsular area -Osteoarthritis -Bilateral tinnitus and recurrent herpes simplex Discharge disposition Patient is being discharged in a stable condition with guarded prognosis to home and will follow-up with primary care provider upon discharge. She will follow up with cardiology in one week as discussed. Patient will also follow up with neurology in the outpatient setting in 1-2 weeks. Total time taken is 35 minutes. History of present illness This is a 68-year-old male was recently admitted for chest pain and shortness of breath and was being closely monitored. Cardiology was following. Neurology was consulted and following as the patient appeared to be confused or to evaluate for possible Parkinson's. During hospitalization patient underwent an echo showing an overall left ventricular systolic function normal with an EF between 55 and 60%, a stress test that was normal without evidence of ischemia, and carotid Doppler with no significant stenosis seen. Patient will follow-up with cardiology in the outpatient setting in 1-2 weeks. Patient was started on a low-dose of aspirin 81 mg and will continue at this time. Patient's losartan was increased to 100 mg daily. Currently patient denies any shortness of breath, chest pain, or palpitations. Patient is afebrile. Patient denies any nausea or vomiting and is tolerating diet. Patient was seen by neurology and an MRI of the brain and cervical spine was ordered, but only the MRI of the brain was done as the patient was unable to tolerate laying flat for any longer to finish the neck. MRI of the brain shows no evidence of a recent infarct or other diffusion abnormality with mild diffuse cerebral atrophy and mild to moderate chronic small vessel ischemic changes with underlying subtle Chiari type I malformation with no hydrocephalus and no acute infarct present. Patient will follow-up in the outpatient setting with neurology as discussed previously. Currently patient's condition is stable and is ready for discharge today. Guarded prognosis. On exam vital signs are stable. Temp is 98.1F, pulse is 90, respirations are 17, blood pressure is 143/100, oxygen saturation is 97% on room air. Cardio S1, S2 are present. Respiratory system shows clear to auscultation. Abdomen is soft and nontender. Nervous system shows no focal deficits. Please refer to medication reconciliation sheet for a list of medications. Patient Condition at Discharge: Stable Plan - Discharge Summary Discharge Rx Participant: No New Discharge Prescriptions: New Aspirin 81 mg PO DAILY 30 Days #30 chew Losartan [Cozaar] 100 mg PO DAILY 30 Days #30 tab Continue Naproxen Sodium [Aleve] 220 mg PO QAM valACYclovir [Valtrex] 250 mg PO DAILY Ibuprofen/Diphenhydramine HCl [Advil Pm Liqui-Gels] 1 cap PO HS Discharge Medication List Ibuprofen/Diphenhydramine HCl [Advil Pm Liqui-Gels] 1 cap PO HS 03/02/19 [History] Naproxen Sodium [Aleve] 220 mg PO QAM 03/02/19 [History] valACYclovir [Valtrex] 250 mg PO DAILY 03/02/19 [History] Aspirin 81 mg PO DAILY 30 Days #30 chew 03/04/19 [Rx] Losartan [Cozaar] 100 mg PO DAILY 30 Days #30 tab 03/04/19 [Rx] Follow up Appointment(s)/Referral(s): Luigi Hawk MD [STAFF PHYSICIAN] - 1 Week David Mann DO [Primary Care Provider] - 1-2 days Chandra Elam MD [STAFF PHYSICIAN] - 03/11/19 1:45 pm Activity/Diet/Wound Care/Special Instructions: Activity Limited until follow-up Continue current diet Follow-up with primary care provider upon discharge Follow-up with cardiology as discussed and scheduled Follow-up with neurology in the outpatient setting in 1-2 weeks. Discharge Disposition: HOME SELF-CARE
[2019-03-05] MEDS ORDERED: LOSARTAN 50 MG TAB PO SCH (09:00)
== END 2019-03-04 17:06 | disposition home or self-care (01) | DRG 204 ==
LOC: EC 14:37 → 1SOBS 16:22 → OBSVTOIN 03-04 09:11
PROVIDERS: ADMIT Internal Medicine; ATTEND Internal Medicine
DX: R06.02 Shortness of breath (principal); G20 Parkinson's disease; R07.89 Other chest pain; I10 Essential (primary) hypertension; I71.4 Abdominal aortic aneurysm, without rupture; I25.10 Atherosclerotic heart disease of native coronary artery without angina pectoris; H93.13 Tinnitus, bilateral; M89.49 Other hypertrophic osteoarthropathy, multiple sites; R39.15 Urgency of urination; I73.9 Peripheral vascular disease, unspecified; M54.9 Dorsalgia, unspecified; Z79.82 Long term (current) use of aspirin; Z79.1 Long term (current) use of non-steroidal anti-inflammatories (NSAID); Z79.899 Other long term (current) drug therapy; Z86.19 Personal history of other infectious and parasitic diseases; Z86.73 Personal history of transient ischemic attack (TIA), and cerebral infarction without residual deficits; Z86.79 Personal history of other diseases of the circulatory system; Z90.49 Acquired absence of other specified parts of digestive tract; Z98.890 Other specified postprocedural states; Z80.52 Family history of malignant neoplasm of bladder
CPT/HCPCS: 36415; 70551; 71046; 80053; 80061; 82550; 82607; 82746; 83880; 84443; 84484; 85025; 85379; 85610; 85730; 86780; 93005; 93306; 93351; 93880; 99285

== ENCOUNTER 2019-06-28 | Emergency (ER) | payer MEDICARE | END 2019-06-28 16:18 | disposition home or self-care (01) | CPT/HCPCS: 36415; 71046; 80053; 83880; 84484; 85025; 85610; 85730; 93005; 99284 ==

== ENCOUNTER 2020-08-08 12:44 | Emergency (ER) | payer MEDICARE ==
[2020-08-08 12:49] VITALS: BP 151/96; PULSE 66; TEMP 98.5
--- NOTE | 2020-08-08 13:08 | ED ---
URI HPI - General Chief Complaint: Upper Respiratory Infection Stated Complaint: Covid+, sorethroat Time Seen by Provider: 08/08/20 12:52 Source: patient, RN notes reviewed Mode of arrival: ambulatory Limitations: no limitations - History of Present Illness Initial Comments: This a 70-year-old male presents emergency Department chief complaint of positi ve Covid, cough congestion. He states he started with symptoms over 2 weeks ago he tested positive over a week ago. Patient states that he still has cough congestion no increasing chest pain states he feels slightly short of breath no leg pain or swelling no GI symptoms. States he has nasal congestion, ingestion his throat. - Related Data Home Medications Medication Instructions Recorded Confirmed Ibuprofen/Diphenhydramine HCl 1 cap PO HS 03/02/19 06/28/19 [Advil Pm Liqui-Gels] Naproxen Sodium [Aleve] 220 mg PO QAM 03/02/19 06/28/19 valACYclovir [Valtrex] 500 mg PO DAILY 03/02/19 06/28/19 Fluticasone Nasal [place] [Flonase 1 spr EA NOSTRIL DAILY 06/28/19 06/28/19 Nasal [place]] Glucosam/Johnny-Msm1/C/Nba/Bosw 1 tab PO DAILY 06/28/19 06/28/19 [Glucosamine-Chondroitin Tablet] Latanoprost [Xalatan 0.005%] 1 drop BOTH EYES HS 06/28/19 06/28/19 Losartan Potassium 100 mg PO DAILY 06/28/19 06/28/19 Magnesium 200 mg PO DAILY 06/28/19 06/28/19 Multivitamins, Thera [Multivitamin 1 tab PO DAILY 06/28/19 06/28/19 (formulary)] Pramipexole [Mirapex] 0.5 mg PO TID 06/28/19 06/28/19 Sertraline [Zoloft] 50 mg PO DAILY 06/28/19 06/28/19 Sildenafil [Revatio] 20 mg PO DAILY PRN 06/28/19 06/28/19 Timolol Maleate [Timolol Maleate 1 applic BOTH EYES DAILY 06/28/19 06/28/19 0.5% Ophth Gel] Previous Rx's Medication Instructions Recorded Furosemide [Lasix] 20 mg PO DAILY #14 tablet 06/28/19 Albuterol Sulfate [Proair Hfa] 1 - 2 puff INHALATION Q4HR PRN #1 08/08/20 inhaler predniSONE 50 mg PO DAILY #5 tab 08/08/20 Allergies Allergy/AdvReac Type Severity Reaction Status Date / Time No Known Allergies Allergy Verified 08/08/20 12:49 Review of Systems ROS Statement: Those systems with pertinent positive or pertinent negative responses have been documented in the HPI. ROS Other: All systems not noted in ROS Statement are negative. Past Medical History Past Medical History: Coronary Artery Disease (CAD), Hypertension Additional Past Medical History / Comment(s): AAA being monitored, occasional back pain, bilateral tinnitis. History of Any Multi-Drug Resistant Organisms: None Reported Past Surgical History: Appendectomy, Hernia Repair, Tonsillectomy Additional Past Surgical History / Comment(s): Bilateral inguinal hernia repairs done twice. Past Anesthesia/Blood Transfusion Reactions: No Reported Reaction Past Psychological History: No Psychological Hx Reported Smoking Status: Never smoker Past Alcohol Use History: None Reported Past Drug Use History: None Reported - Past Family History Father Family Medical History: Cancer Additional Family Medical History / Comment(s): Father at the age of 75yrs from metastatic bladder cancer. Mother Family Medical History: No Reported History Additional Family Medical History / Comment(s): Mother is 85yrs old and healthy. General Exam Limitations: no limitations General appearance: alert, in no apparent distress Head exam: Present: atraumatic, normocephalic, normal inspection Eye exam: Present: normal appearance, PERRL, EOMI. Absent: scleral icterus, conjunctival injection, periorbital swelling Neck exam: Present: normal inspection, full ROM. Absent: tenderness, meningismus, lymphadenopathy Respiratory exam: Present: normal lung sounds bilaterally. Absent: respiratory distress, wheezes, rales, rhonchi, stridor Cardiovascular Exam: Present: regular rate, normal rhythm, normal heart sounds. Absent: systolic murmur, diastolic murmur, rubs, gallop, clicks Back exam: Absent: CVA tenderness (R), CVA tenderness (L) Neurological exam: Present: alert Skin exam: Present: warm, dry, intact, normal color. Absent: rash Course Vital Signs 08/08/20 12:45 Temperature 98.5 F Pulse Rate 66 Respiratory 22 Rate Blood Pressure 151/96 O2 Sat by Pulse 99 Oximetry Medical Decision Making - Medical Decision Making Patient has evidence of midlung pneumonia patient is positive for Covid. Patient we discharged on steroids, inhaler return parameters were discussed. Disposition Clinical Impression: COVID-19 Disposition: HOME SELF-CARE Condition: Stable Instructions (If sedation given, give patient instructions): Coronavirus Disease 2019 (COVID-19) Additional Instructions: Please return to the Emergency Department if symptoms worsen or any other concerns. Prescriptions: predniSONE 50 mg PO DAILY #5 tab Albuterol Sulfate [Proair Hfa] 1 - 2 puff INHALATION Q4HR PRN #1 inhaler PRN Reason: difficulty in breathing Is patient prescribed a controlled substance at d/c from ED?: No Referrals: David Mann DO [Primary Care Provider] - 1-2 days Time of Disposition: 13:39
--- NOTE | 2020-08-08 13:28 | XR ---
EXAMINATION TYPE: XR chest 2V DATE OF EXAM: 08/08/2020 COMPARISON: 06/28/2019 HISTORY: Covid+/SOB TECHNIQUE: Frontal and lateral views of the chest are obtained. FINDINGS: Scattered senescent parenchymal changes noted. Vague infiltrate within the periphery of the right midlung zone. Correlate for developing pneumonia. Heart size is stable. Mediastinal structures are stable and grossly unremarkable. No evidence for hilar prominence. Degenerative changes dorsal spine. IMPRESSION: 1. Vague infiltrate within the periphery of the right midlung zone. Correlate for developing pneumoni a.
[2020-08-08 13:51] VITALS: RESP 17
== END 2020-08-08 13:51 | disposition home or self-care (01) ==
LOC: EC 12:44
DX: U07.1 COVID-19 (principal); I25.10 Atherosclerotic heart disease of native coronary artery without angina pectoris; I10 Essential (primary) hypertension; Z90.49 Acquired absence of other specified parts of digestive tract; Z90.09 Acquired absence of other part of head and neck
CPT/HCPCS: 71046; 99285

== ENCOUNTER 2020-09-29 20:22 | Inpatient (IN) | payer MEDICARE ==
--- NOTE | 2020-09-29 22:04 | ED ---
ENT HPI - General Chief complaint: ENT Stated complaint: Problem swallowing Time Seen by Provider: 09/29/20 21:27 Source: patient, RN notes reviewed Mode of arrival: ambulatory Limitations: no limitations - History of Present Illness Initial comments: Patient is a 70-year-old male that presents to emergency by complaining of dysphagia and some throat pain. He notes that this been going on for approximately a week. He notes that he tried giving with his primary care but was unable to. He notes that he feels like his throat is swollen and closing u p. She denied any other issues or complaints. He notes that he can still eat and drink it's just a little bit uncomfortable. She denied any chest pain shortness of breath headache nausea vomiting diarrhea constipation fever fatigue chills. - Related Data Home Medications Medication Instructions Recorded Confirmed Ibuprofen/Diphenhydramine HCl 1 cap PO HS 03/02/19 06/28/19 [Advil Pm Liqui-Gels] Naproxen Sodium [Aleve] 220 mg PO QAM 03/02/19 06/28/19 valACYclovir [Valtrex] 500 mg PO DAILY 03/02/19 06/28/19 Fluticasone Nasal [place] [Flonase 1 spr EA NOSTRIL DAILY 06/28/19 06/28/19 Nasal [place]] Glucosam/Johnny-Msm1/C/Nba/Bosw 1 tab PO DAILY 06/28/19 06/28/19 [Glucosamine-Chondroitin Tablet] Latanoprost [Xalatan 0.005%] 1 drop BOTH EYES HS 06/28/19 06/28/19 Losartan Potassium 100 mg PO DAILY 06/28/19 06/28/19 Magnesium 200 mg PO DAILY 06/28/19 06/28/19 Multivitamins, Thera [Multivitamin 1 tab PO DAILY 06/28/19 06/28/19 (formulary)] Pramipexole [Mirapex] 0.5 mg PO TID 06/28/19 06/28/19 Sertraline [Zoloft] 50 mg PO DAILY 06/28/19 06/28/19 Sildenafil [Revatio] 20 mg PO DAILY PRN 06/28/19 06/28/19 Timolol Maleate [Timolol Maleate 1 applic BOTH EYES DAILY 06/28/19 06/28/19 0.5% Ophth Gel] Previous Rx's Medication Instructions Recorded Furosemide [Lasix] 20 mg PO DAILY #14 tablet 06/28/19 Albuterol Sulfate [Proair Hfa] 1 - 2 puff INHALATION Q4HR PRN #1 08/08/20 inhaler predniSONE 50 mg PO DAILY #5 tab 08/08/20 Allergies Allergy/AdvReac Type Severity Reaction Status Date / Time No Known Allergies Allergy Verified 09/29/20 20:45 Review of Systems ROS Statement: Those systems with pertinent positive or pertinent negative responses have been documented in the HPI. ROS Other: All systems not noted in ROS Statement are negative. Past Medical History Past Medical History: Coronary Artery Disease (CAD), Hypertension Additional Past Medical History / Comment(s): AAA being monitored, occasional back pain, bilateral tinnitis. parkinsons History of Any Multi-Drug Resistant Organisms: None Reported Past Surgical History: Appendectomy, Hernia Repair, Tonsillectomy Additional Past Surgical History / Comment(s): Bilateral inguinal hernia repairs done twice. Past Anesthesia/Blood Transfusion Reactions: No Reported Reaction Past Psychological History: No Psychological Hx Reported Smoking Status: Never smoker Past Alcohol Use History: None Reported Past Drug Use History: None Reported - Past Family History Father Family Medical History: Cancer Additional Family Medical History / Comment(s): Father at the age of 75yrs from metastatic bladder cancer. Mother Family Medical History: No Reported History Additional Family Medical History / Comment(s): Mother is 85yrs old and healthy. General Exam Limitations: no limitations General appearance: alert, in no apparent distress Head exam: Present: atraumatic, normocephalic, normal inspection Eye exam: Present: normal appearance, PERRL, EOMI. Absent: scleral icterus, conjunctival injection, periorbital swelling ENT exam: Present: normal exam, mucous membranes moist Expanded Mouth exam: Present: normal external inspection, other (Uvula inflamed and swollen.). Absent: drooling, trismus Neck exam: Present: normal inspection Respiratory exam: Present: normal lung sounds bilaterally. Absent: respiratory distress, wheezes, rales, rhonchi, stridor Cardiovascular Exam: Present: regular rate, normal rhythm, normal heart sounds. Absent: systolic murmur, diastolic murmur, rubs, gallop, clicks Extremities exam: Present: normal inspection, full ROM, normal capillary refill. Absent: tenderness, pedal edema, joint swelling, calf tenderness Neurological exam: Present: alert, oriented X3 Psychiatric exam: Present: normal affect, normal mood Skin exam: Present: warm, dry, intact, normal color. Absent: rash Course Vital Signs 09/29/20 09/29/20 09/30/20 20:45 23:24 00:55 Temperature 98.6 F Pulse Rate 98 63 67 Respiratory 20 20 18 Rate Blood Pressure 161/90 132/91 131/93 O2 Sat by Pulse 96 96 96 Oximetry Medical Decision Making - Medical Decision Making 70-year-old male complaining of dysphagia and some throat swelling. Strep test, heterophile test, CBC, CMP, x-ray of the soft tissue neck ordered. Labs unremarkable. X-ray negative for epiglottitis. Upon reevaluation patient states that he does not feel any better and that he would feel more comfortable staying for observation. Case discussed with Dr. Javed, she'll be admitted for observation. Dr. Kidd was consulted and wants ENT on consult. - Lab Data Result diagrams: 09/29/20 22:34 09/29/20 22:34 Lab Results 09/29/20 09/29/20 09/29/20 Range/Units 22:34 22:34 22:34 WBC 10.1 (3.8-10.6) k/uL RBC 4.63 (4.30-5.90) m/uL Hgb 14.9 (13.0-17.5) gm/dL Hct 41.9 (39.0-53.0) % MCV 90.5 (80.0-100.0) fL MCH 32.2 (25.0-35.0) pg MCHC 35.6 (31.0-37.0) g/dL RDW 12.4 (11.5-15.5) % Plt Count 226 (150-450) k/uL MPV 7.5 Neutrophils % 72 % Lymphocytes % 17 % Monocytes % 7 % Eosinophils % 2 % Basophils % 0 % Neutrophils # 7.3 (1.3-7.7) k/uL Lymphocytes # 1.8 (1.0-4.8) k/uL Monocytes # 0.7 (0-1.0) k/uL Eosinophils # 0.2 (0-0.7) k/uL Basophils # 0.0 (0-0.2) k/uL Sodium 139 (137-145) mmol/L Potassium 3.7 (3.5-5.1) mmol/L Chloride 105 (98-107) mmol/L Carbon Dioxide 25 (22-30) mmol/L Anion Gap 9 mmol/L BUN 21 H (9-20) mg/dL Creatinine 0.86 (0.66-1.25) mg/dL Est GFR (CKD-EPI)AfAm >90 (>60 ml/min/1.73 sqM) Est GFR (CKD-EPI)NonAf 89 (>60 ml/min/1.73 sqM) Glucose 109 H (74-99) mg/dL Calcium 9.6 (8.4-10.2) mg/dL Total Bilirubin 0.3 (0.2-1.3) mg/dL AST 31 (17-59) U/L ALT 26 (4-49) U/L Alkaline Phosphatase 63 (38-126) U/L Total Protein 6.9 (6.3-8.2) g/dL Albumin 4.3 (3.5-5.0) g/dL Heterophile Antibody Negative (Negative) Group A Strep Rapid (Negative) 09/29/20 Range/Units 22:34 WBC (3.8-10.6) k/uL RBC (4.30-5.90) m/uL Hgb (13.0-17.5) gm/dL Hct (39.0-53.0) % MCV (80.0-100.0) fL MCH (25.0-35.0) pg MCHC (31.0-37.0) g/dL RDW (11.5-15.5) % Plt Count (150-450) k/uL MPV Neutrophils % % Lymphocytes % % Monocytes % % Eosinophils % % Basophils % % Neutrophils # (1.3-7.7) k/uL Lymphocytes # (1.0-4.8) k/uL Monocytes # (0-1.0) k/uL Eosinophils # (0-0.7) k/uL Basophils # (0-0.2) k/uL Sodium (137-145) mmol/L Potassium (3.5-5.1) mmol/L Chloride (98-107) mmol/L Carbon Dioxide (22-30) mmol/L Anion Gap mmol/L BUN (9-20) mg/dL Creatinine (0.66-1.25) mg/dL Est GFR (CKD-EPI)AfAm (>60 ml/min/1.73 sqM) Est GFR (CKD-EPI)NonAf (>60 ml/min/1.73 sqM) Glucose (74-99) mg/dL Calcium (8.4-10.2) mg/dL Total Bilirubin (0.2-1.3) mg/dL AST (17-59) U/L ALT (4-49) U/L Alkaline Phosphatase (38-126) U/L Total Protein (6.3-8.2) g/dL Albumin (3.5-5.0) g/dL Heterophile Antibody (Negative) Group A Strep Rapid Negative (Negative) - Radiology Data Radiology results: report reviewed, image reviewed Soft tissue x-ray of the neck: Epiglottis is normal. Subglottic trachea appears normal. There is some spurring at C4-C5. The tonsils and adenoids are intact. Disposition Clinical Impression: Uvulitis, Dysphagia Disposition: ADMITTED IP TO THIS HOSP Condition: Stable Is patient prescribed a controlled substance at d/c from ED?: No Referrals: David Mann DO [Primary Care Provider] - 1-2 days Time of Disposition: 01:31
--- NOTE | 2020-09-29 22:55 | XR ---
EXAMINATION TYPE: XR soft tissue neck DATE OF EXAM: 09/29/2020 COMPARISON: NONE HISTORY: Difficulty swallowing TECHNIQUE: 2 views FINDINGS: Epiglottis is normal. Subglottic trachea appears normal. There is some spurring at C4-5 and C5-6. The tonsils and adenoids are intact. IMPRESSION: Negative cervical soft tissue exam.
[2020-09-29 22:57] LABS: Basophils % (A) 0 %; Eosinophils # (A) 0.2 k/uL (0-0.7); Eosinophils % (A) 2 %; HCT 41.9 % (39.0-53.0); HGB 14.9 gm/dL (13.0-17.5); Lymphocytes # (A) 1.8 k/uL (1.0-4.8); Lymphocytes % (A) 17 %; MCH 32.2 pg (25.0-35.0); MCHC 35.6 g/dL (31.0-37.0); MCV 90.5 fL (80.0-100.0); Mean Platelet Volume 7.5; Monocytes # (A) 0.7 k/uL (0-1.0); Monocytes % (A) 7 %; Neutrophils # (A) 7.3 k/uL (1.3-7.7); Neutrophils % (A) 72 %; Platelet Count 226 k/uL (150-450); RBC 4.63 m/uL (4.30-5.90); RDW 12.4 % (11.5-15.5); WBC 10.1 k/uL (3.8-10.6)
[2020-09-29 23:19] LABS: ALT 26 U/L (4-49); AST 31 U/L (17-59); African American GFR (CKD) >90 (>60 ml/min/1.73 sqM); Albumin 4.3 g/dL (3.5-5.0); Alkaline Phosphatase 63 U/L (38-126); Anion Gap 9 mmol/L; Blood Urea Nitrogen 21 mg/dL (9-20); Calcium 9.6 mg/dL (8.4-10.2); Carbon Dioxide 25 mmol/L (22-30); Chloride 105 mmol/L (98-107); Glucose 109 mg/dL (74-99); Non-African American GFR(CKD) 89 (>60 ml/min/1.73 sqM); Potassium 3.7 mmol/L (3.5-5.1); Sodium 139 mmol/L (137-145); Total Bilirubin 0.3 mg/dL (0.2-1.3); Total Protein 6.9 g/dL (6.3-8.2)
[2020-09-29] MEDS ORDERED: MORPHINE SULFATE 4 MG/ML SYRINGE IVP STA (23:24)
[2020-09-29] MEDS ORDERED: methylPREDNISolone SOD SUCCI 125 MG/2 ML VIAL IM ONE (23:58)
[2020-09-29] MEDS ORDERED: diphenhydrAMINE 50 MG/ML 1 ML VIAL IM STA (23:58)
[2020-09-30] MEDS ORDERED: diphenhydrAMINE 50 MG/ML 1 ML VIAL IVP STA (00:37)
[2020-09-30] MEDS ORDERED: methylPREDNISolone SOD SUCCI 125 MG/2 ML VIAL IV STA (00:38)
[2020-09-30] MEDS ORDERED: NALOXONE 0.4 MG/ML 1 ML VIAL IV PRN (01:25)
[2020-09-30] MEDS: SODIUM CHLORIDE 0.9% 1,000 ML IV SCH ×2 (01:35→16:50)
[2020-09-30] MEDS ORDERED: diphenhydrAMINE 50 MG/ML 1 ML VIAL IVP PRN (01:49)
[2020-09-30] MEDS ORDERED: DEXAMETHASONE SOD PHOSPHATE 4 MG/ML 1 ML VIAL IV PRN (01:49)
[2020-09-30] MEDS: AMPICILLIN-SULBACTAM 1.5 GM in SODIUM CHLORIDE 0.9% 50 ML IVPB SCH ×2 (08:34→16:50)
--- NOTE | 2020-09-30 11:59 | CT ---
EXAMINATION TYPE: CT soft tissue neck w con DATE OF EXAM: 09/30/2020 COMPARISON: None HISTORY: Uvulitis CT DLP: 382.2 mGycm CONTRAST: Patient injected with 100 mL of Isovue 300. TECHNIQUE: Axial images at 3 mm thick sections. Reconstructed images in the coronal plane and sagitt al plane are reviewed. FINDINGS: Limited CT sections are obtained the lung apices. The lung apices appear clear. CT neck: The torus tubarius and fossa of [place] are normal. Public [facility] Aide spaces are normal. Para nasal sinuses and mastoid air cells are clear. Parotid glands appear normal and symmetrical. Submandibular glands, are normal. Parapharyngeal spac es are normal. No suspicious adenopathy is evident. There are scattered small lymph nodes present bi laterally. Uvula is visualized on this examination appears unremarkable. The hypopharynx appears within normal limits. Vocal cord level appear symmetrical. Subglottic airway appears normal. Thyroid as visualized is normal. Osseous structures are normal. IMPRESSIONS: 1. Normal soft tissue neck. 2. No suspicious findings at the level of the uvula.
--- NOTE | 2020-09-30 12:51 | P.HPIM ---
History of Present Illness 70-year-old male came in with complaints of dysphagia and the throat pain and patient is found to have significant swelling of the throat. Patient to was diagnosed with pharyngitis recently about a week ago at the times but strep test was negative and patient was discharged on amoxicillin. Patient the continue to get worse in spite of amoxicillin denied any fever chills doesn't have any leukocytosis. Patient denied any shortness of breath.Because of her significant swelling of the posterior pharynx and uvula , e a CT of the neck was obtained which did not show any infection in the deep fascial planes of the neck. Review of Systems REVIEW OF SYSTEMS: CONSTITUTIONAL: No fever, no malaise, no fatigue. HEENT: No recent visual problems or hearing problems. CARDIOVASCULAR: No chest pain, orthopnea, PND, no palpitations, no syncope. PULMONARY: No shortness of breath, no cough, no hemoptysis. GASTROINTESTINAL: No diarrhea, no nausea, no vomiting, no abdominal pain. NEUROLOGICAL: No headaches, no weakness, no numbness. HEMATOLOGICAL: Denies any bleeding or petechiae. GENITOURINARY: Denies any burning micturition, frequency, or urgency. MUSCULOSKELETAL/RHEUMATOLOGICAL: Denies any joint pain, swelling, or any muscle pain. ENDOCRINE: Denies any polyuria or polydipsia. The rest of the 14-point review of systems is negative. Past Medical History Past Medical History: Heart Failure, Hearing Disorder / Deafness, Hypertension, Musculoskeletal Disorder, Neurologic Disorder, Osteoarthritis (OA), Sleep Apnea/CPAP/BIPAP, Vascular Disorder Additional Past Medical History / Comment(s): AAA being monitored, Parkinson's disease, R lacunar infarct per previous cat scan report/pt does not recall being told but states he has R sided weakness, AIYANA but does not tolerate device, pt states CHF once many years ago, occasional back pain, bilateral tinnitis. History of Any Multi-Drug Resistant Organisms: None Reported Past Surgical History: Appendectomy, Hernia Repair, Tonsillectomy Additional Past Surgical History / Comment(s): Bilateral inguinal hernia repairs done twice, colonoscopy Past Anesthesia/Blood Transfusion Reactions: No Reported Reaction Smoking Status: Never smoker - Past Family History Father Family Medical History: Cancer Additional Family Medical History / Comment(s): Father at the age of 75yrs from metastatic bladder cancer. Mother Family Medical History: No Reported History Additional Family Medical History / Comment(s): Mother is 89yrs old and healthy. Medications and Allergies Home Medications Medication Instructions Recorded Confirmed Type valACYclovir [Valtrex] 500 mg PO DAILY 03/02/19 09/30/20 History Fluticasone Nasal [place] [Flonase 1 spr EA NOSTRIL DAILY PRN 06/28/19 09/30/20 History Nasal [place]] Sertraline [Zoloft] 50 mg PO DAILY 06/28/19 09/30/20 History Amoxicillin 500 mg PO Q8H 09/30/20 09/30/20 History Sildenafil Citrate 100 mg PO DAILY PRN 09/30/20 09/30/20 History Allergies Allergy/AdvReac Type Severity Reaction Status Date / Time No Known Allergies Allergy Verified 09/30/20 06:16 Physical Exam Vitals: Vital Signs Temp Pulse Resp BP Pulse Ox 09/30/20 11:43 97.9 F 82 18 149/98 82 L 09/30/20 08:27 97.5 F L 83 18 134/92 97 09/30/20 06:00 57 L 16 131/78 96 09/30/20 00:55 67 18 131/93 96 09/29/20 23:24 63 20 132/91 96 09/29/20 20:45 98.6 F 98 20 161/90 96 Intake and Output 09/29/20 09/30/20 09/30/20 22:59 06:59 14:59 Other: Weight 90.718 kg 90.718 kg PHYSICAL EXAMINATION: GENERAL: The patient is alert and oriented x3, not in any acute distress. Well developed, well nourished. Masklike face consistent with his history of Parkinson's HEENT: Pupils are round and equally reacting to light. EOMI. No scleral icterus. No conjunctival pallor. Normocephalic, atraumatic. Significant swelling of the posterior pharynx along with the swelling of the uvula patient airways patent, no stridor. No thyromegaly. CARDIOVASCULAR: S1 and S2 present. No murmurs, rubs, or gallops. PULMONARY: Chest is clear to auscultation, no wheezing or crackles. ABDOMEN: Soft, nontender, nondistended, normoactive bowel sounds. No palpable organomegaly. MUSCULOSKELETAL: No joint swelling or deformity. EXTREMITIES: No cyanosis, clubbing, or pedal edema. NEUROLOGICAL: Gross neurological examination did not reveal any focal deficits. SKIN: No rashes. Results CBC & Chem 7: 09/29/20 22:34 09/29/20 22:34 Labs: Abnormal Lab Results - Last 24 Hours (Table) 09/29/20 Range/Units 22:34 BUN 21 H (9-20) mg/dL Glucose 109 H (74-99) mg/dL Microbiology - Last 24 Hours (Table) 09/29/20 22:34 Group A Strep Throat Culture - Preliminary Throat Thrombosis Risk Factor Assmnt - Choose All That Apply Any of the Below Risk Factors Present?: Yes Each Factor Represents 1 point: Obesity (BMI >25) Other Risk Factors: Yes Each Risk Factor Represents 2 Points: Age 61-74 years Other congenital or acquired thrombophilia - If yes, enter type in comment: No Thrombosis Risk Factor Assessment Total Risk Factor Score: 3 Thrombosis Risk Factor Assessment Level: Moderate Risk Assessment and Plan Plan: -Severe pharyngitis with significant swelling of the posterior pharynx and uvula. Patient will be continued as Unasyn and Decadron patient received Benadryl. -Depression -History of Parkinson's presently not on any medications -Sleep apnea -Due to prophylaxis: Ambulation. Patient
[2020-09-30] MEDS: SERTRALINE 50 MG TAB PO SCH (13:15)
[2020-10-01] MEDS: AMPICILLIN-SULBACTAM 1.5 GM in SODIUM CHLORIDE 0.9% 50 ML IVPB SCH ×3 (02:03→15:59)
[2020-10-01] MEDS: SODIUM CHLORIDE 0.9% 1,000 ML IV SCH (05:34)
[2020-10-01] MEDS: valACYclovir 500 MG TAB PO SCH (08:14)
[2020-10-01] MEDS: SERTRALINE 50 MG TAB PO SCH (08:14)
[2020-10-01 11:55] VITALS: BMI 28.7
[2020-10-01] MEDS ORDERED: FLUTICASONE 50MCG/SPRAY NASAL 16GM EA NOSTRIL PRN (21:33)
--- NOTE | 2020-10-01 21:53 | XR ---
EXAMINATION TYPE: XR chest 1V portable DATE OF EXAM: 10/01/2020 COMPARISON: 08/08/2020. HISTORY: CHF TECHNIQUE: Single frontal view of the chest is obtained. FINDINGS: There is no focal air space opacity, pleural effusion, or pneumothorax seen. The cardiac silhouette size is mildly enlarged. The osseous structures are intact. IMPRESSION: No acute process.
[2020-10-01] MEDS ORDERED: ENOXAPARIN 40 MG/0.4 ML SYRINGE SQ SCH (23:45)
[2020-10-02] MEDS: AMPICILLIN-SULBACTAM 1.5 GM in SODIUM CHLORIDE 0.9% 50 ML IVPB SCH ×4 (00:42→23:23)
[2020-10-02] MEDS: TEMAZEPAM 15 MG CAP PO PRN ×2 (00:42→23:23)
--- NOTE | 2020-10-02 00:45 | CT ---
EXAMINATION TYPE: CT angio chest DATE OF EXAM: 10/02/2020 COMPARISON: None HISTORY: R/O PE CT DLP: 367.50 mGycm Automated exposure control for dose reduction was used. CONTRAST: Performed with IV Contrast, patient injected with 70 mL of Isovue 370. Images obtained from the thoracic inlet to the diaphragm with IV contrast and 3-D post processed imag es. The lungs are clear of infiltrate. There is no evidence of a pulmonary mass. There is no pleural effu hailey. There is subsegmental atelectasis at the posterior lung bases. There is no mediastinal adenopathy. There are no hilar masses. Thoracic aorta is intact. There is mil d aneurysm of the ascending aorta that measures 4 cm. There is no dissection. There are multiple filling defects in the lower lobe pulmonary arteries bilaterally. This is slightly more on the right side. There is also filling defect in the right upper lobe pulmonary artery in a s maller branch. The thoracic spine is intact. There is no compression fracture. Sternum is intact. IMPRESSION: Multiple bilateral pulmonary emboli. No suspicious primary mass. Subsegmental atelectasis. No sign of right heart strain.
[2020-10-02] MEDS ORDERED: HEPARIN SODIUM 1,000 UN/ML (10ML VL) IV ONE (00:56)
[2020-10-02] MEDS ORDERED: HEPARIN SODIUM 1,000 UN/ML (10ML VL) IV PRN (00:56)
[2020-10-02 01:43] LABS: Basophils % (A) 0 %; Eosinophils # (A) 0.2 k/uL (0-0.7); Eosinophils % (A) 2 %; HCT 39.8 % (39.0-53.0); HGB 14.1 gm/dL (13.0-17.5); Lymphocytes # (A) 1.5 k/uL (1.0-4.8); Lymphocytes % (A) 17 %; MCH 32.3 pg (25.0-35.0); MCHC 35.3 g/dL (31.0-37.0); MCV 91.6 fL (80.0-100.0); Mean Platelet Volume 7.8; Monocytes # (A) 0.6 k/uL (0-1.0); Monocytes % (A) 6 %; Neutrophils # (A) 6.7 k/uL (1.3-7.7); Neutrophils % (A) 74 %; Platelet Count 176 k/uL (150-450); RBC 4.35 m/uL (4.30-5.90); RDW 12.3 % (11.5-15.5); WBC 9.1 k/uL (3.8-10.6)
[2020-10-02 02:01] LABS: Partial Thromboplastin Time 24.8 sec (22.0-30.0); Prothrombin Time 11.1 sec (9.0-12.0)
[2020-10-02] MEDS: HEPARIN SOD,PORK IN 0.45% NACL 25,000 UNIT in 0.45% NACL 1 250ML.BAG IV SCH ×2 (02:28→16:37)
[2020-10-02] MEDS: SODIUM CHLORIDE 0.9% 1,000 ML IV SCH (02:51)
--- NOTE | 2020-10-02 03:21 | PN ---
PROGRESS NOTE DATE OF SERVICE: 10/01/2020 This 70-year-old gentleman who was admitted with significant swelling and throat difficulties had severe pharyngitis and swelling of the posterior pharynx uvula also. The patient was started on intravenous Unasyn. The patient also had history of parkinsonism. The patient also has soft tissue of the neck CT scan which showed no significant abnormalities. White count is normal at this time. The patient also had influenza, RSV, group A strep were negative. Patient is being closely monitored at this time. ENT consultation has been sought. PAST MEDICAL HISTORY: Reviewed. REVIEW OF SYSTEMS: ENT As mentioned earlier. CARDIOVASCULAR No angina or palpitations. RESPIRATORY No cough, no hemoptysis. GI No nausea, vomiting, or diarrhea. No dysuria or hematuria. NERVOUS No numbness or weakness. CURRENT MEDICATIONS: Reviewed include the IV Unasyn, Benadryl, Narcan, Zoloft, Restoril, Valtrex. PHYSICAL EXAMINATION: Patient is alert, oriented x3. Pulse is 65, blood pressure 120/80, respiration 18, temperature 98.8, pulse ox 98% on 4 L. HEENT: Conjunctivae normal. Oral mucosa moist. NECK: No jugular venous distention. No lymph node enlargement. CARDIOVASCULAR: S1, S2, muffled. No S3, no S4, RESPIRATORY: Diminished breath sounds at the bases. A few scattered rhonchi and crackles. ABDOMEN: Soft, nontender. LEGS: No edema, no swelling. NERVOUS SYSTEM: No focal deficits. LABS: CBC within normal limits and glucose 109. ASSESSMENT: 1. Severe pharyngitis, failure of outpatient treatment. 2. Severe ileitis, for evaluation. 3. Acute hypoxic respiratory failure. 4. Depression. 5. History of Parkinson's. 6. Sleep apnea. 7. Gait dysfunction. 8. History of congestive heart failure. 9. History of hearing disorder and deafness. 10.Hypertension. 11.History of DJD. 12.History of abdominal aortic aneurysm. 13.History of appendectomy. 14.History of hernia surgery. 15.FULL CODE. RECOMMENDATION: In this 70-year-old gentleman who presented with multiple complex medical issues, we will monitor the patient closely. We will continue with empiric antibiotics. The patient is also given IV steroids. I would also recommend portable chest x-ray. Cut down the IV fluids. Otherwise, baseline workup. Resume the home medications. Prognosis guarded because of multiple complex medical issues and further recommendations to follow. The patient is also on a p.r.n. steroids as well. See orders for details. MMODL / IJN: [id number] /
[2020-10-02] MEDS: valACYclovir 500 MG TAB PO SCH (08:36)
[2020-10-02] MEDS: SERTRALINE 50 MG TAB PO SCH (08:36)
--- NOTE | 2020-10-02 10:38 | P.CNPUL ---
History of Present Illness Consult date: 10/02/20 History of present illness: 70-year-old male patient who initially presented to the hospital because of dysphagia and some swelling in his throat. He was diagnosed having a pharyngitis approximately week prior to him coming to the hospital. At that time his strep test was negative and the patient was given amoxicillin. He was taken amoxicillin and his condition got worse and the patient came into the hospital. He was suspected to have some pharyngeal erythema and swelling of the uvula. CAT scan of the neck was done at the time of admission showed no acute abnormalities. Subsequently, further investigation was done with a CTA of the chest and the patient was found to have bilateral pulmonary emboli. Currently the patient IV heparin. Review of Systems CONSTITUTIONAL: No fever, no malaise, no fatigue. HEENT: No recent visual problems or hearing problems. CARDIOVASCULAR: No chest pain, orthopnea, PND, no palpitations, no syncope. PULMONARY: No shortness of breath, no cough, no hemoptysis. GASTROINTESTINAL: No diarrhea, no nausea, no vomiting, no abdominal pain. NEUROLOGICAL: No headaches, no weakness, no numbness. HEMATOLOGICAL: Denies any bleeding or petechiae. GENITOURINARY: Denies any burning micturition, frequency, or urgency. MUSCULOSKELETAL/RHEUMATOLOGICAL: Denies any joint pain, swelling, or any muscle pain. ENDOCRINE: Denies any polyuria or polydipsia. Past Medical History Past Medical History: Hearing Disorder / Deafness, Hypertension, Musculoskeletal Disorder, Neurologic Disorder, Osteoarthritis (OA), Sleep Apnea/CPAP/BIPAP, Vascular Disorder Additional Past Medical History / Comment(s): AAA being monitored, Parkinson's disease, R lacunar infarct per previous cat scan report/pt does not recall being told but states he has R sided weakness, AIYANA but does not tolerate device, pt states CHF once many years ago, occasional back pain, bilateral tinnitis. History of Any Multi-Drug Resistant Organisms: None Reported Past Surgical History: Appendectomy, Hernia Repair, Tonsillectomy Additional Past Surgical History / Comment(s): Bilateral inguinal hernia repairs done twice, colonoscopy Past Anesthesia/Blood Transfusion Reactions: No Reported Reaction Smoking Status: Never smoker - Past Family History Father Family Medical History: Cancer Additional Family Medical History / Comment(s): Father at the age of 75yrs from metastatic bladder cancer. Mother Family Medical History: No Reported History Additional Family Medical History / Comment(s): Mother is 89yrs old and healthy. Medications and Allergies Home Medications Medication Instructions Recorded Confirmed Type valACYclovir [Valtrex] 500 mg PO DAILY 03/02/19 09/30/20 History Fluticasone Nasal Mitchell [Flonase 1 spr EA NOSTRIL DAILY PRN 06/28/19 09/30/20 History Nasal Mitchell] Sertraline [Zoloft] 50 mg PO DAILY 06/28/19 09/30/20 History Amoxicillin 500 mg PO Q8H 09/30/20 09/30/20 History Sildenafil Citrate 100 mg PO DAILY PRN 09/30/20 09/30/20 History Allergies Allergy/AdvReac Type Severity Reaction Status Date / Time No Known Allergies Allergy Verified 09/30/20 06:16 Physical Exam Vitals: Vital Signs Temp Pulse Resp BP Pulse Ox 10/02/20 08:34 97.7 F 62 16 122/77 98 10/02/20 08:00 62 16 10/02/20 04:00 98.1 F 61 18 139/86 95 10/02/20 02:00 98.4 F 65 16 134/81 97 10/01/20 20:00 98.8 F 65 16 128/80 98 10/01/20 15:00 97.6 F 64 16 150/88 10/01/20 13:15 16 Intake and Output 10/01/20 10/02/20 10/02/20 22:59 06:59 14:59 Intake Total 355.119 Output Total 825 600 Balance -825 -600 355.119 Intake: Intake, IV Titration 115.119 Amount Heparin Sod,Pork in 0.45% 115.119 NaCl 25,000 unit In 0.45 % NaCl 1 250ml.bag @ 18 UNITS/KG/HR 16.329 mls/hr IV .[id number] [facility] Rx#: [id number] Oral 240 Output: Urine 825 600 Other: Voiding Method Urinal Urinal # Voids 2 1 Weight 82 kg The patient appeared well nourished and normally developed. Vital signs as doc umented. Head exam is unremarkable. No scleral icterus or corneal arcus noted. Neck is without jugular venous distension, thyromegaly, or carotid bruits. Carotid upstrokes are brisk bilaterally. Lungs are clear to auscultation and percussion. Cardiac exam reveals the PMI to be normally sized and situated. Rhythm is regular. First and second heart sounds normal. No murmurs, rubs or gallops. Abdominal exam reveals normal bowel sounds, no masses, no organomegaly and no aortic enlargement. Extremities are nonedematous and both femoral and pedal pulses are normal.Examination of the skin revealed no evidence of significant rashes, suspicious appearing nevi or other concerning lesions.neurologically the patient has focal facies related to his Parkinson's disease. No resting tremors at this point in time. Results - Laboratory Findings CBC and BMP: 10/02/20 01:22 09/29/20 22:34 PT/INR, D-dimer PT 11.1 sec (9.0-12.0) 10/02/20 01:22 INR 1.0 (<1.2) 10/02/20 01:22 D-Dimer 6.92 mg/L FEU (<0.60) H 10/01/20 22:20 Abnormal lab findings: Abnormal Labs 09/29/20 10/01/20 10/02/20 22:34 22:20 08:15 APTT 130.0 H* D-Dimer 6.92 H BUN 21 H Glucose 109 H - Diagnostic Findings Chest x-ray: image reviewed CT scan - chest: image reviewed Assessment and Plan Plan: 1 acute bilateral unprovoked pulmonary embolism, clinically relatively asymptomatic. This was suspected based on elevated d-dimer and subsequently a CT angiogram was done indicating bilateral pulmonary embolism and the patient is currently on IV heparin. Awaiting Doppler of the lower extremities. Awaiting echocardiogram. Note that the patient is essentially sedentary due to his Parkinson's disease 2 history of Parkinson's disease 3 history of severe with a previous right lacunar infarct 4 and now aortic aneurysm, being monitored 5 AIYANA, nontolerant to CPAP therapy 6 symptoms of pharyngitis currently on Unasyn Plan Continue IV heparin Obtain echocardiogram, to assess for any pulmonary hypertension or RV strain pattern Obtain Doppler of the lower extremities We'll likely need long-term anticoagulation. Risk factors his sedentary lifestyle. continue antibiotics We'll follow
--- NOTE | 2020-10-02 11:03 | US ---
EXAMINATION TYPE: US venous doppler duplex LE DATE OF EXAM: 10/02/2020 10:50 AM COMPARISON: NONE CLINICAL HISTORY: dvt. Elevated D-dimer, patient on blood thinners, swelling Exam done portable. SIDE PERFORMED: Bilateral TECHNIQUE: The lower extremity deep venous system is examined utilizing real time linear array sonog izabella with graded compression, doppler sonography and color-flow sonography. VESSELS IMAGED: Common Femoral Vein Deep Femoral Vein Greater Saphenous Vein * Femoral Vein Popliteal Vein Small Saphenous Vein * Proximal Calf Veins (* superficial vessels) Right Leg: Appears negative for DVT Left Leg: Appears negative for DVT Grayscale, color doppler, spectral doppler imaging performed of the deep veins of the bilateral lower extremities. There is normal flow, compressibility, vascular waveforms. IMPRESSION: No ultrasound evidence for acute DVT in either lower extremity.
[2020-10-02 11:27] LABS: Basophils # (A) 0.04 X 10*3/uL (0.00-0.10); Basophils % (A) 0.4 %; Eosinophils # (A) 0.19 X 10*3/uL (0.04-0.35); Eosinophils % (A) 2.1 %; HCT 42.5 % (39.6-50.0); HGB 14.4 g/dL (13.0-17.0); Lymphocytes # (A) 1.54 X 10*3/uL (0.90-5.00); Lymphocytes % (A) 16.8 %; MCH 31.9 pg (27.0-32.0); MCHC 33.9 g/dL (32.0-37.0); MCV 94.2 fL (80.0-97.0); Mean Platelet Volume 10.9 fL (9.5-12.2); Monocytes # (A) 0.77 X 10*3/uL (0.20-1.00); Monocytes % (A) 8.4 %; Neutrophils # (A) 6.58 X 10*3/uL (1.80-7.70); Neutrophils % (A) 72.1 %; Platelet Count 198 X 10*3/uL (140-440); RBC 4.51 X 10*6/uL (4.40-5.60); RDW 12.6 % (11.5-14.5); WBC 9.14 X 10*3/uL (4.50-10.00)
[2020-10-02 12:23] LABS: African American GFR (CKD) 106.4 (60.0-200.0); BUN/Creat Ratio 16.25 Ratio (12.00-20.00); Non-African American GFR(CKD) 91.8 (60.0-200.0); Potassium 4.1 mmol/L (3.5-5.5)
--- NOTE | 2020-10-02 19:40 | PN ---
PROGRESS NOTE DATE OF SERVICE: 10/02/2020 This 70-year-old gentleman with throat discomfort and dysphagia, also had shortness of breath. The patient's CT angio showed bilateral pulmonary embolism. The patient is transferred to telemetry and started on IV heparin at this time. Venous Doppler negative. Ultrasound was negative for DVT in the lower legs. Multiple consultants are following the patient closely at this time. PAST MEDICAL HISTORY: Reviewed. REVIEW OF SYSTEMS: CARDIOVASCULAR No angina or palpitations. RESPIRATORY As mentioned earlier. GI As mentioned earlier. No dysuria or hematuria. NERVOUS No numbness or weakness. CURRENT MEDICATIONS: Reviewed include Unasyn, Decadron, Benadryl, Flonase, heparin, Narcan, Zoloft. PHYSICAL EXAMINATION: Patient is alert, oriented x3. Pulse 61, blood pressure 120/80, respirations 16, temperature 97.2, pulse ox 97% on 2 L. HEENT: Conjunctivae normal. Oral mucosa moist. NECK: No jugular venous distention. No lymph node enlargement. CARDIOVASCULAR: S1, S2, muffled. No S3, no S4, RESPIRATORY: Diminished breath sounds at the bases. A few scattered rhonchi. ABDOMEN: Soft, nontender. LEGS: No edema, no swelling. NERVOUS SYSTEM: No focal deficits. LABS: APTT noted. CBC noted. Glucose 151. Otherwise, RSV is negative. Influenza also negative. ASSESSMENT: 1. Acute bilateral pulmonary embolism, on IV heparin, heparin monitoring. 2. Severe pharyngitis with failure of outpatient IV antibiotics. 3. Severe uvulitis, for evaluation. 4. Acute hypoxic respiratory failure secondary to upper respiratory infection as well as pulmonary embolism. 5. Depression. 6. History of Parkinson's. 7. Sleep apnea. 8. Elevated D-dimer. 9. Gait dysfunction. 10.History of CHF. 11.History of hearing disorder and deafness. 12.Hypertension. 13.History of degenerative joint disease. 14.History of abdominal aortic aneurysm. 15.History of appendectomy. 16.History of hernia surgery. 17.FULL CODE. RECOMMENDATIONS AND DISCUSSION: I recommend to continue current management, symptomatic treatment. Continue IV heparin. Continue the rest of medications. Ultrasound of the leg is negative for DVT. Otherwise, closely follow with Dr. Graham. Guarded prognosis because of multiple complex medical issues. Further recommendations to follow. MMODL / IJN: [id number] /
[2020-10-03 05:34] LABS: Appearance,Urine Clear (Clear); Bilirubin,Urine Negative (Negative); Blood,Urine Negative (Negative); Color,Urine Light Yellow; Glucose,Urine (UA) Negative (Negative); Ketones,Urine Negative (Negative); Leukocyte Esterase,Urine Negative (Negative); Nitrite,Urine Negative (Negative); Protein,Urine Negative (Negative); Specific Gravity,Urine 1.005 (1.001-1.035); Urobilinogen,Urine <2.0 mg/dL (<2.0)
[2020-10-03 09:25] LABS: Basophils % (A) 0 %; Eosinophils # (A) 0.3 k/uL (0-0.7); Eosinophils % (A) 3 %; HCT 43.6 % (39.0-53.0); HGB 15.3 gm/dL (13.0-17.5); Lymphocytes # (A) 1.8 k/uL (1.0-4.8); Lymphocytes % (A) 21 %; MCHC 35.1 g/dL (31.0-37.0); MCV 91.1 fL (80.0-100.0); Mean Platelet Volume 8.2; Monocytes # (A) 0.7 k/uL (0-1.0); Monocytes % (A) 8 %; Neutrophils # (A) 5.8 k/uL (1.3-7.7); Neutrophils % (A) 67 %; Platelet Count 214 k/uL (150-450); RBC 4.78 m/uL (4.30-5.90); RDW 12.3 % (11.5-15.5); WBC 8.6 k/uL (3.8-10.6)
[2020-10-03 09:38] LABS: African American GFR (CKD) >90 (>60 ml/min/1.73 sqM); Anion Gap 6 mmol/L; Blood Urea Nitrogen 14 mg/dL (9-20); Carbon Dioxide 28 mmol/L (22-30); Chloride 104 mmol/L (98-107); Glucose 93 mg/dL (74-99); Non-African American GFR(CKD) >90 (>60 ml/min/1.73 sqM); Potassium 4.2 mmol/L (3.5-5.1); Sodium 138 mmol/L (137-145)
[2020-10-03] MEDS: SERTRALINE 50 MG TAB PO SCH (09:42)
[2020-10-03] MEDS: AMPICILLIN-SULBACTAM 1.5 GM in SODIUM CHLORIDE 0.9% 50 ML IVPB SCH ×3 (09:42→23:37)
[2020-10-03] MEDS: valACYclovir 500 MG TAB PO SCH (09:42)
[2020-10-03] MEDS: HEPARIN SOD,PORK IN 0.45% NACL 25,000 UNIT in 0.45% NACL 1 250ML.BAG IV SCH (09:43)
--- NOTE | 2020-10-03 14:02 | P.PN ---
Subjective Progress Note Date: 10/03/20 Principal diagnosis: Dyspnea 70-year-old male patient who initially presented to the hospital because of dysphagia and some swelling in his throat. He was diagnosed having a pha ryngitis approximately week prior to him coming to the hospital. At that time his strep test was negative and the patient was given amoxicillin. He was taken amoxicillin and his condition got worse and the patient came into the hospital. He was suspected to have some pharyngeal erythema and swelling of the uvula. CAT scan of the neck was done at the time of admission showed no acute abnormalities. Subsequently, further investigation was done with a CTA of the chest and the patient was found to have bilateral pulmonary emboli. Currently the patient IV heparin. On 10/03/2020 patient seen in follow-up on selective care unit. She is awake and alert, in no acute distress, he is currently on 2 L of oxygen his pulse ox is 9698%, he is afebrile, hemodynamically stable, he states he is feeling better. Patient remains on Unasyn for possibility of uvulitis, she remains on heparin infusion for evidence of bilateral pulmonary emboli on CTA chest, his bilateral lower extremity Dopplers showed no evidence of DVT. He denies any dysphagia, denies any sore throat. No voice hoarseness. Vital signs have been stable. Today's echocardiogram is pending. We checked his insurance coverage for Xarelto, and patient's insurance did cover the medication with [id number] cost of $9 per month. No worsening dyspnea or hypoxia, vital signs have been stable. Objective - Vital Signs Vital signs: Vital Signs Temp 98.4 F 10/03/20 12:00 Pulse 66 10/03/20 12:00 Resp 18 10/03/20 12:00 BP 129/77 10/03/20 12:00 Pulse Ox 96 10/03/20 08:00 Intake & Output 10/02/20 10/03/20 10/03/20 18:59 06:59 18:59 Intake Total 916.450 108.299 240 Output Total 1999 1690 Balance -1083.550 -1581.701 240 Weight 85 kg Intake: Intake, IV Titration 196.450 108.299 Amount Heparin Sod,Pork in 0.45% 196.450 108.299 NaCl 25,000 unit In 0.45 % NaCl 1 250ml.bag @ 18 UNITS/KG/HR 16.329 mls/hr IV .[id number] [facility] Rx#: [id number] Oral 720 240 Output: Urine 1999 1690 Other: Voiding Method Urinal Urinal # Voids 2 - Exam GENERAL EXAM: Alert, very pleasant, 62-year-old white male, on 2 L of oxygen pulse ox of 96-98% comfortable in no apparent distress. HEAD: Normocephalic/atraumatic. EYES: Normal reaction of pupils, equal size. Conjunctiva pink, sclera white. NOSE: Clear with pink turbinates. THROAT: No erythema or exudates. NECK: No masses, no JVD, no thyroid enlargement, no adenopathy. CHEST: No chest wall deformity. Symmetrical expansion. LUNGS: Equal air entry with no crackles, wheeze, rhonchi or dullness. CVS: Regular rate and rhythm, normal S1 and S2, no gallops, no murmurs, no rubs ABDOMEN: Soft, nontender. No hepatosplenomegaly, normal bowel sounds, no guarding or rigidity. EXTREMITIES: No clubbing, no edema, no cyanosis, 2+ pulses and upper and lower extremities. MUSCULOSKELETAL: Muscle strength and tone normal. SPINE: No scoliosis or deformity SKIN: No rashes CENTRAL NERVOUS SYSTEM: Alert and oriented -3. No focal deficits, tone is normal in all 4 extremities. PSYCHIATRIC: Alert and oriented -3. Appropriate affect. Intact judgment and insight. - Labs CBC & Chem 7: 10/03/20 08:08 10/03/20 08:08 Labs: Abnormal Lab Results - Last 24 Hours (Table) 10/02/20 10/02/20 10/03/20 Range/Units 16:07 23:56 08:08 APTT 71.5 H 57.2 H 50.8 H (22.0-30.0) sec Microbiology - Last 24 Hours (Table) 09/29/20 22:34 Group A Strep Throat Culture - Final Throat Assessment and Plan Plan: Assessment: 1 acute bilateral unprovoked pulmonary embolism, clinically relatively asymptomatic. This was suspected based on elevated d-dimer and subsequently a CT angiogram was done indicating bilateral pulmonary embolism and the patient is currently on IV heparin. Awaiting Doppler of the lower extremities. Awaiting echocardiogram. Note that the patient is essentially sedentary due to his Parkinson's disease 2 history of Parkinson's disease 3 history of severe with a previous right lacunar infarct 4 and now aortic aneurysm, being monitored 5 AIYANA, nontolerant to CPAP therapy 6 symptoms of pharyngitis currently on Unasyn Plan: Patient's insurance coverage for Xarelto has been checked His [id number] monthly cost for Xarelto will be $9 Vital signs are stable Weaning FiO2 obtain home oxygen assessment Increase activity as tolerated Echocardiogram is pending to assess pulmonary hypertension or RV strain pattern Patient continues on antibiotics for possibility of pharyngitis Clinically stable Patient is being discharged home Would like to see him in follow-up in 3-4 weeks I performed a history & physical examination of the patient and discussed their management with my nurse practitioner, Kelly Aragon. I reviewed the nurse practitioner's note and agree with the documented findings and plan of care. Lung sounds are positive for diminished breath sounds. The findings and the impression was discussed with the patient. I attest to the documentation by the nurse practitioner. Time with Patient: Less than 30
[2020-10-03] MEDS ORDERED: ACETAMINOPHEN TAB 325 MG TAB PO PRN (15:23)
[2020-10-03] MEDS: RIVAROXABAN 15 MG TAB PO SCH (15:50)
--- NOTE | 2020-10-03 17:36 | PN ---
PROGRESS NOTE DATE OF SERVICE: 10/03/2020. This 70-year-old gentleman admitted with throat difficulties and features of pharyngitis, also had acute bilateral pulmonary embolism. The patient was on IV heparin. Xarelto has been initiated. No chest pain. No palpitations. No fever. PHYSICAL EXAMINATION: Alert and oriented times three. Pulse 69. Blood pressure 148/90, respirations 16, temperature 99 degrees, pulse ox 94% on room air. HEENT: Conjunctivae normal. NECK: No JVD. CARDIOVASCULAR: S1, S2 muffled. RESPIRATION: Breath sounds diminished in the bases. A few scattered rhonchi. ABDOMEN: Soft. NERVOUS SYSTEM: No numbness, weakness. LABORATORY DATA: CBC BMP noted. ASSESSMENT: 1. Acute bilateral pulmonary embolism status post IV heparin and IV heparin monitor. 2. Severe pharyngitis failure of outpatient treatment, IV antibiotics, present on admission. 3. Severe uvulitis for evaluation. 4. Acute hypoxic respiratory failure secondary to upper respiratory infection as well as acute pulmonary embolism. 5. Depression. 6. History of Parkinson's. 7. Obstructive sleep apnea. 8. Elevated D-dimer. 9. Gait dysfunction. 10.History of congestive heart failure. 11.History of hearing disorder and deafness. 12.Hypertension. 13.History of degenerative joint disease. 14.History of abdominal aortic aneurysm. 15.History of appendectomy. 16.History of hernia surgery. 17.FULL CODE. RECOMMENDATIONS AND DISCUSSION: Continue current medications, management and symptomatic treatment. Continue with Xarelto. PT/OT evaluation. Increase ambulation. [employer] to evaluate the home situation. Further recommendations to follow. PT/OT evaluation. MMODL / IJN: [id number] /
[2020-10-03] MEDS: KETOROLAC 15 MG/ML 1 ML VIAL IVP PRN (20:02)
[2020-10-03] MEDS: TEMAZEPAM 15 MG CAP PO PRN (23:42)
[2020-10-04] MEDS: RIVAROXABAN 15 MG TAB PO SCH (06:24)
--- NOTE | 2020-10-04 08:00 | ECHOF ---
Referral Reason:pe, rule out RV strain MEASUREMENTS -------- HEIGHT: 152.4 cm WEIGHT: 84.8 kg BP: RVIDd: 3.1 cm (< 3.3) IVSd: 1.1 cm (0.6 - 1.1) LVIDd: 4.7 cm (3.9 - 5.3) LVPWd: 1.1 cm (0.6 - 1.1) IVSs: 1.3 cm LVIDs: 3.4 cm LVPWs: 1.3 cm Ao Diam: 3.0 cm (2.0 - 3.7) AV Cusp: 2.3 cm (1.5 - 2.6) MV EXCURSION: 18.395 mm (> 18.000) MV EF SLOPE: 73 mm/s (70 - 150) EPSS: 0.5 cm MV E Josafat: 0.37 m/s MV DecT: 237 ms MV A Josafat: 0.65 m/s MV E/A Ratio: 0.57 RAP: 5.00 mmHg RVSP: 26.04 mmHg TAPSE: 21.52 mm FINDINGS -------- Sinus rhythm. This was a technically good study. LV size, wall thickness and systolic function are normal, with an EF greater than 55%. The left renee tricular size is normal. The right ventricle is normal in size and function. Normal LA size by volume 22+/-6 ml/m2. The right atrial size is normal. The aortic valve is trileaflet, and appears structurally normal. No aortic stenosis or regurgitation. Mild mitral regurgitation is present. Mild tricuspid regurgitation present. Right ventricular systolic pressure is normal at < 35 mmHg. There is no pulmonic regurgitation present. The aortic root size is normal. Echo free space represents a pericardial fat pad. CONCLUSIONS -------- 1. LV size, wall thickness and systolic function are normal, with an EF greater than 55%. 2. The left ventricular size is normal. 3. The right ventricle is normal in size and function. 4. Normal LA size by volume 22+/-6 ml/m2. 5. The right atrial size is normal. 6. The aortic valve is trileaflet, and appears structurally normal. No aortic stenosis or regurgitati on. 7. Mild mitral regurgitation is present. 8. Mild tricuspid regurgitation present. 9. The aortic root size is normal. 10. Echo free space represents a pericardial fat pad. BOOK REPAIRER: Sienna Robbins RDCS
[2020-10-04] MEDS: SERTRALINE 50 MG TAB PO SCH (08:04)
[2020-10-04] MEDS: AMPICILLIN-SULBACTAM 1.5 GM in SODIUM CHLORIDE 0.9% 50 ML IVPB SCH (08:04)
[2020-10-04] MEDS: KETOROLAC 15 MG/ML 1 ML VIAL IVP PRN (08:05)
[2020-10-04] MEDS: valACYclovir 500 MG TAB PO SCH (08:06)
--- NOTE | 2020-10-04 11:55 | FL ---
EXAMINATION TYPE: FL barium swallow w video DATE OF EXAM: 10/04/2020 MODIFIED SWALLOW / DEGLUTITION STUDY CLINICAL HISTORY: Dysphagia. TECHNIQUE: Deglutition study is performed utilizing thin liquid barium, honey and nectar thick liqui d barium, barium thick applesauce, and barium coated cracker. Fluoroscopic time 1 minute 18 seconds. COMPARISON: None. FINDINGS: The oral and pharyngeal phases show satisfactory initiation and propagation with all modali ties tested. Normal mastication is seen with solid modalities tested. There is no evidence of penet ration or aspiration with any modality tested. No significant pharyngeal residue was appreciated. IMPRESSION: Normal deglutition study. Please refer to speech therapist notes for further details if necessary.
[2020-10-04 12:02] VITALS: BP 124/84; PULSE 66; RESP 22; TEMP 98.3
--- NOTE | 2020-10-04 19:52 | DS ---
DISCHARGE SUMMARY DATE OF SERVICE: 10/04/2020 FINAL DIAGNOSES: 1. Acute bilateral pulmonary embolism status post IV heparin and heparin monitoring. 2. Severe pharyngitis with failure of outpatient treatment and status post IV antibiotics. 3. Severe uvulitis improved. 4. Acute hypoxic respiratory failure secondary to upper respiratory infection as well as acute pulmonary embolism. 5. Depression. 6. History of Parkinson's. 7. Obstructive sleep apnea. 8. Elevated D-dimer. 9. Gait dysfunction. 10.History of congestive heart failure. 11.History of hearing disorder, deafness. 12.Hypertension. 13.History of degenerative joint disease. 14.History of abdominal aortic aneurysm. 15.History of appendectomy. 16.History of hernia surgery. 17.FULL CODE. DISCHARGE DISPOSITION: The patient will be discharged in stable condition with guarded prognosis. Total time taken 35 minutes. HISTORY OF PRESENT ILLNESS: This 70-year-old gentleman with past medical history of multiple medical problems admitted with severe pharyngitis and was found to have features of bilateral pulmonary embolism. Patient is on IV heparin. The patient was started on Xarelto and the patient improved significantly and the patient discharged home in stable condition. Guarded prognosis. On exam, vitals signs stable. Cardiovascular: S1, S2. Abdomen soft. Nervous system: No focal deficits. Recommend close followup with multiple consultants in the outpatient setting. Discussed with Rula at length and currently stable. Overall prognosis guarded. I recommend also follow up with Hematology/Oncology Dr. Frias also. DISCHARGE RECOMMENDATIONS AND MEDICATIONS: 1. Diet is cardiac diet. 2. Activity limited until followup. 3. Follow up with Dr. Mann in 2-3 days. 4. Follow up with Dr. Graham as recommended. 5. Follow up with Dr. Bazan for ENT problems. 6. Fluticasone nasal spray. 7. Sildenafil as before. 8. Valtrex 500 mg p.o. daily. 9. Zoloft 50 mg p.o. daily. 10.Augmentin 1 p.o. b.i.d. for 2 more days. 11.Tylenol p.r.n. 12.Xarelto 50 mg b.i.d. for 21 days and then 20 mg daily per starter pack. Once again the patient discharged in stable condition. Guarded prognosis. MMODL / IJN: [id number] /
== END 2020-10-04 16:08 | disposition home or self-care (01) | DRG 175 ==
LOC: EC 20:22 → 6NMEDSUR 09-30 01:44 → 3SCARD 10-02 03:31 → OBSVTOIN 10-04 07:51
PROVIDERS: ADMIT Internal Medicine; ATTEND Internal Medicine
DX: I26.99 Other pulmonary embolism without acute cor pulmonale (principal); J96.01 Acute respiratory failure with hypoxia; K12.2 Cellulitis and abscess of mouth; G20 Parkinson's disease; I71.4 Abdominal aortic aneurysm, without rupture; I11.0 Hypertensive heart disease with heart failure; I50.9 Heart failure, unspecified; Z20.822 Contact with and (suspected) exposure to COVID-19; J02.9 Acute pharyngitis, unspecified; I25.10 Atherosclerotic heart disease of native coronary artery without angina pectoris; F32.9 Major depressive disorder, single episode, unspecified; M54.9 Dorsalgia, unspecified; H93.13 Tinnitus, bilateral; I99.9 Unspecified disorder of circulatory system; G47.33 Obstructive sleep apnea (adult) (pediatric); H91.90 Unspecified hearing loss, unspecified ear; M19.90 Unspecified osteoarthritis, unspecified site; R26.9 Unspecified abnormalities of gait and mobility; Z79.899 Other long term (current) drug therapy; Z90.49 Acquired absence of other specified parts of digestive tract; Z87.19 Personal history of other diseases of the digestive system; Z86.73 Personal history of transient ischemic attack (TIA), and cerebral infarction without residual deficits; Z80.52 Family history of malignant neoplasm of bladder
CPT/HCPCS: 36415; 70360; 70491; 71045; 71275; 74230; 80048; 80053; 81003; 85025; 85379; 85610; 85652; 85730; 86140; 86308; 87081; 87430; 87502; 87634; 87635; 93306; 93970; 96374; 96375; 99285

== ENCOUNTER → 2021-03-20 | Outpatient (CLI) | payer MEDICARE ==
--- NOTE | 2021-03-20 12:18 | MR ---
EXAMINATION TYPE: MR brain wo con DATE OF EXAM: 03/20/2021 12:04 PM COMPARISON: NONE HISTORY: Multi-system degeneration of autonomic nervous system. Follow up for Parkinson's disease. Hi story of head injury FINDINGS: The ventricles, basal cisterns and sulci overlying the cerebral convexities are mildly enlarged. There is evidence of mild to moderate periventricular white matter ischemic demyelination. Remote deep white matter insults are also noted. No acute edema is seen on diffusion weighted imaging. There is no evidence for midline shift or mass effect. Acute intracranial hemorrhage or extra-axial collection is not evident. The paranasal sinuses and mastoid air cells are well-aerated. IMPRESSION: Age-related atrophic and chronic small vessel ischemic change. No acute intracranial process at this time.
== END | disposition home or self-care (01) ==
LOC: RADMRIMAIN 11:17
PROVIDERS: ATTEND Psychiatry & Neurology Neurology
DX: S09.90XA Unspecified injury of head, initial encounter (principal); I67.82 Cerebral ischemia; G20 Parkinson's disease
CPT/HCPCS: 70551

== ENCOUNTER → 2021-08-28 | Outpatient (CLI) | payer MEDICARE ==
--- NOTE | 2021-08-28 10:16 | XR ---
EXAMINATION TYPE: XR shoulder complete LT DATE OF EXAM: 08/28/2021 CLINICAL HISTORY: Shoulder pain for 5 months TECHNIQUE: Three views of the left shoulder are obtained. COMPARISON: None. FINDINGS: There is no acute fracture/dislocation evident in the left shoulder. Severe glenohumeral j oint space narrowing with prominent spur extending inferiorly from the medial aspect of the humeral h ead. Acromioclavicular joint shows mild narrowing. The visualized ribs are intact . IMPRESSION: As above.
== END | disposition home or self-care (01) ==
LOC: RADXRYALE 09:39
PROVIDERS: ATTEND Physician Assistant
DX: M25.812 Other specified joint disorders, left shoulder (principal)

== ENCOUNTER → 2023-05-14 | Outpatient (CLI) | payer MEDICARE ==
--- NOTE | 2023-05-15 07:15 | XR ---
EXAMINATION TYPE: XR knee complete LT DATE OF EXAM: 05/14/2023 CLINICAL HISTORY: pain TECHNIQUE: Three views of the left knee are obtained. COMPARISON: None. FINDINGS: There is no acute fracture/dislocation. The tri-compartment joint spaces appear within no rmal limits. The overlying soft tissue appears unremarkable. IMPRESSION: There is no acute fracture or dislocation ICD 10 NO FRACTURE, INITIAL EVALUATION
== END | disposition home or self-care (01) ==
LOC: RADXRYALE 15:12
PROVIDERS: ATTEND Family Medicine
DX: M25.562 Pain in left knee (principal); M79.662 Pain in left lower leg

== ENCOUNTER 2023-05-27 11:27 | Emergency (ER) | payer MEDICARE ==
--- NOTE | 2023-05-27 12:22 | ED ---
General Adult HPI - General Chief complaint: Fall Stated complaint: fall Time Seen by Provider: 05/27/23 11:39 Source: patient, family, RN notes reviewed Mode of arrival: wheelchair Limitations: no limitations - History of Present Illness Initial comments: 73-year-old male presents to the emergency department for evaluation of increased frequency in falls. Patient states that he has been falling backwards due to loss of balance. He fell today hitting his back against the wall. Denies head injury, blood thinners. He does have a history of Parkinson's disease. He takes ropinirole. He used to follow with Dr. Denton but does not any longer. He denies dizziness, lightheadedness, shortness of breath, chest pain. Denies recent fever. - Related Data Home Medications Medication Instructions Recorded Confirmed valACYclovir HCL [Valtrex] 500 mg PO DAILY 03/02/19 09/30/20 Fluticasone Nasal [place] [Flonase 1 spr EA NOSTRIL DAILY PRN 06/28/19 09/30/20 Nasal [place]] Sertraline [Zoloft] 50 mg PO DAILY 06/28/19 09/30/20 Sildenafil Citrate 100 mg PO DAILY PRN 09/30/20 09/30/20 Previous Rx's Medication Instructions Recorded Rivaroxaban [Xarelto Starter Pack] 0 mg PO DIRECTED 30 Days #1 pack 10/03/20 Acetaminophen Tab [Tylenol] 650 mg PO Q6HR PRN tab 10/04/20 Amoxic-Pot Clav 875-125Mg 1 tab PO Q12HR 2 Days #4 tab 10/04/20 [Augmentin 875-125] Allergies Allergy/AdvReac Type Severity Reaction Status Date / Time No Known Allergies Allergy Verified 05/27/23 11:36 Review of Systems ROS Statement: Those systems with pertinent positive or pertinent negative responses have been documented in the HPI. ROS Other: All systems not noted in ROS Statement are negative. Past Medical History Past Medical History: Hearing Disorder / Deafness, Hypertension, Musculoskeletal Disorder, Neurologic Disorder, Osteoarthritis (OA), Sleep Apnea/CPAP/BIPAP, Vascular Disorder Additional Past Medical History / Comment(s): AAA being monitored, Parkinson's disease, R lacunar infarct per previous cat scan report/pt does not recall being told but states he has R sided weakness, AIYANA but does not tolerate device, pt states CHF once many years ago, occasional back pain, bilateral tinnitis. History of Any Multi-Drug Resistant Organisms: None Reported Past Surgical History: Appendectomy, Hernia Repair, Tonsillectomy Additional Past Surgical History / Comment(s): Bilateral inguinal hernia repairs done twice, colonoscopy Past Anesthesia/Blood Transfusion Reactions: No Reported Reaction Past Psychological History: No Psychological Hx Reported Smoking Status: Never smoker Past Alcohol Use History: None Reported Past Drug Use History: None Reported - Past Family History Father Family Medical History: Cancer Additional Family Medical History / Comment(s): Father at the age of 75yrs from metastatic bladder cancer. Mother Family Medical History: No Reported History Additional Family Medical History / Comment(s): Mother is 89yrs old and healthy. General Exam Limitations: no limitations General appearance: alert, in no apparent distress Head exam: Present: atraumatic, normocephalic, normal inspection Eye exam: Present: normal appearance, PERRL, EOMI. Absent: scleral icterus, conjunctival injection, periorbital swelling ENT exam: Present: normal exam, mucous membranes moist Neck exam: Present: normal inspection, full ROM. Absent: tenderness, meningismus, lymphadenopathy Respiratory exam: Present: normal lung sounds bilaterally. Absent: respiratory distress, wheezes, rales, rhonchi, stridor Cardiovascular Exam: Present: regular rate, normal rhythm, normal heart sounds. Absent: systolic murmur, diastolic murmur, rubs, gallop, clicks GI/Abdominal exam: Present: soft, normal bowel sounds. Absent: distended, t enderness, guarding, rebound, rigid Extremities exam: Present: normal inspection, full ROM, normal capillary refill, other (abrasion to right elbow). Absent: tenderness, pedal edema, joint swelling, calf tenderness Back exam: Present: normal inspection Neurological exam: Present: alert, oriented X3, CN II-XII intact Expanded Patient oriented to: Present: person, place, time Speech: Present: fluid speech Cranial nerves: EOM's Intact: Normal, Gag Reflex: Normal, Facial Sensation: Normal Cerebellar function: Finger to Nose: Normal Upper motor neuron: Pronator Drift: Normal (none) Sensory exam: Upper Extremity Light Touch: Normal, Lower Extremity Light Touch: Normal Motor strength exam: RUE: 5, LUE: 5, RLE: 5, LLE: 5 Eye Response: (4) open spontaneously Motor Response: (6) obeys commands Verbal Response: (5) oriented Psychiatric exam: Present: normal affect, normal mood Skin exam: Present: warm, dry, intact, normal color. Absent: rash Course Vital Signs 05/27/23 05/27/23 05/27/23 11:31 12:23 12:35 Temperature 98.6 F 98.8 F Pulse Rate 72 72 74 Respiratory 18 16 20 Rate Blood Pressure 112/76 123/80 123/80 O2 Sat by Pulse 96 93 L 93 L Oximetry 05/27/23 14:00 Temperature Pulse Rate 72 Respiratory 16 Rate Blood Pressure 123/80 O2 Sat by Pulse 98 Oximetry Medical Decision Making - Medical Decision Making Was pt. sent in by a medical professional or institution (NISHA Tello, MAIL CALLER, urgent care, hospital, or detention...) When possible be specific @ -No Did you speak to anyone other than the patient for history (EMS, parent, family, police, friend...)? What history was obtained from this source @ -Patient's provided some of the history Did you review nursing and triage notes (agree or disagree)? Why? @ -I reviewed and agree with nursing and triage notes Were old charts reviewed (outside hosp., previous admission, EMS record, old EKG, old radiological studies, urgent care reports/EKG's, detention records)? Report findings @ -No old charts were reviewed Differential Diagnosis (chest pain, altered mental status, abdominal pain women, abdominal pain men, vaginal bleeding, weakness, fever, dyspnea, syncope, headache, dizziness, GI bleed, back pain, seizure, CVA, palpatations, mental health, musculoskeletal)? @ -Differential Weakness: Hypoglycemia, shock, sepsis, hyponatremia, anemia, infection, IL, ETOH, adverse medicine reaction, overdose, stroke, this is not meant to be an all-inclusive list. EKG interpreted by me (3pts min.). @ -EKG at 1211 showed sinus rhythm rate 75, CO 172, QRS 91, QT/QTc 481021 X-rays interpreted by me (1pt min.). @ -X-ray shows no acute infiltrate CT interpreted by me (1pt min.). @ -CT brain shows no acute intracranial process, no acute C-spine fracture U/S interpreted by me (1pt. min.). @ -None done What testing was considered but not performed or refused? (CT, X-rays, U/S, labs)? Why? @ -None What meds were considered but not given or refused? Why? @ -None Did you discuss the management of the patient with other professionals (professionals i.e. , PA, MAIL CALLER, lab, RT, psych nurse, social insurance specialist, metrology specialist, teacher, chief communications officer, case management rn)? Give summary @ -Case discussed with case management. Attempting to obtain walker for patient as well as set up appointment for patients primary care provider to set up outpatient PT/OT. Was smoking cessation discussed for >3mins.? @ -No Was critical care preformed (if so, how long)? @ -No Were there social determinants of health that impacted care today? How? (Homelessness, low income, unemployed, alcoholism, drug addiction, transpor tation, low edu. Level, literacy, decrease access to med. care, correction, rehab)? @ -No Was there de-escalation of care discussed even if they declined (Discuss DNR or withdrawal of care, Hospice)? DNR status @ -No What co-morbidities impacted this encounter? (DM, HTN, Smoking, COPD, CAD, Cancer, CVA, ARF, Chemo, Hep., AIDS, mental health diagnosis, sleep apnea, morbid obesity)? @ -Parkinson's disease Was patient admitted / discharged? Hospital course, mention meds given and route, prescriptions, significant lab abnormalities, going to OR and other pertinent info. @ -Patient presented to the emergency department for evaluation of increased falls and weakness. Patient denies any dizziness, lightheadedness, chest pain, shortness of breath. He states that he feels he is losing his balance which is causing him to fall. He does have a history of Parkinson's disease. He used to follow with Dr. Hernandez for this but does not follow with him any longer. Laboratory studies were obtained. CBC shows WBC 13.9, hemoglobin 13.9; normal coagulation studies; CMP shows sodium 139 potassium 4.2, creatinine 1.02, negative troponin; UA shows negative nitrite, negative leukocyte esterase; negative for COVID, influenza, RSV. CT brain obtained which shows no acute intracranial hemorrhage or mass effect. Chest x-ray shows no acute infiltrate. Due to the patient's increased falls, patient will require a walker to aid in ambulation for worsening weakness and Parkinson's. This will be obtained for the patient by case management. She will also set up an appointment for the patient primary care provider. Patient and understanding agreeable with discharge plan. Patient stable at time of discharge. Case discussed with Dr. Javed Undiagnosed new problem with uncertain prognosis? @ -No Drug Therapy requiring intensive monitoring for toxicity (Heparin, Nitro, Insulin, Cardizem)? @ -No Were any procedures done? @ -No Diagnosis/symptom? @ -Generalized weakness Acute, or Chronic, or Acute on Chronic? @ -Acute Uncomplicated (without systemic symptoms) or Complicated (systemic symptoms)? @ -Uncomplicated Side effects of treatment? @ -No Exacerbation, Progression, or Severe Exacerbation? @ -Exacerbation Poses a threat to life or bodily function? How? (Chest pain, USA, IL, pneumonia, PE, COPD, DKA, ARF, appy, cholecystitis, CVA, Diverticulitis, Homicidal, Suicidal, threat to staff... and all critical care pts) @ -No - Lab Data Result diagrams: 05/27/23 12:05 05/27/23 12:05 Lab Results 05/27/23 05/27/23 05/27/23 Range/Units 12:05 12:05 12:05 WBC 13.9 H (3.8-10.6) k/uL RBC 4.34 (4.30-5.90) m/uL Hgb 13.9 (13.0-17.5) gm/dL Hct 39.9 (39.0-53.0) % MCV 91.9 (80.0-100.0) fL MCH 32.0 (25.0-35.0) pg MCHC 34.8 (31.0-37.0) g/dL RDW 12.2 (11.5-15.5) % Plt Count 169 (150-450) k/uL MPV 7.9 Neutrophils % 77 % Lymphocytes % 13 % Monocytes % 7 % Eosinophils % 0 % Basophils % 1 % Neutrophils # 10.7 H (1.3-7.7) k/uL Lymphocytes # 1.8 (1.0-4.8) k/uL Monocytes # 0.9 (0-1.0) k/uL Eosinophils # 0.0 (0-0.7) k/uL Basophils # 0.1 (0-0.2) k/uL PT 11.5 (10.0-12.5) sec INR 1.1 (<1.2) APTT 30.0 (22.0-30.0) sec Sodium 139 (137-145) mmol/L Potassium 4.2 (3.5-5.1) mmol/L Chloride 105 (98-107) mmol/L Carbon Dioxide 26 (22-30) mmol/L Anion Gap 8 mmol/L BUN 20 (9-20) mg/dL Creatinine 1.02 (0.66-1.25) mg/dL Est GFR (CKD-EPI)AfAm 85 (>60 ml/min/1.73 sqM) Est GFR (CKD-EPI)NonAf 74 (>60 ml/min/1.73 sqM) Glucose 127 H (74-99) mg/dL Calcium 8.8 (8.4-10.2) mg/dL Magnesium 1.9 (1.6-2.3) mg/dL Total Bilirubin 0.7 (0.2-1.3) mg/dL AST 53 (17-59) U/L ALT 50 H (4-49) U/L Alkaline Phosphatase 125 (38-126) U/L Troponin I (0.000-0.034) ng/mL Total Protein 6.8 (6.3-8.2) g/dL Albumin 3.8 (3.5-5.0) g/dL Urine Color Urine Appearance (Clear) Urine pH (5.0-8.0) Ur Specific Bath (1.001-1.035) Urine Protein (Negative) Urine Glucose (UA) (Negative) Urine Ketones (Negative) Urine Blood (Negative) Urine Nitrite (Negative) Urine Bilirubin (Negative) Urine Urobilinogen (<2.0) mg/dL Ur Leukocyte Esterase (Negative) Influenza Type A (PCR) (Not Detectd) Influenza Type B (PCR) (Not Detectd) RSV (PCR) (Not Detectd) SARS-CoV-2 (PCR) (Not Detectd) 05/27/23 05/27/23 05/27/23 Range/Units 12:05 12:06 12:06 WBC (3.8-10.6) k/uL RBC (4.30-5.90) m/uL Hgb (13.0-17.5) gm/dL Hct (39.0-53.0) % MCV (80.0-100.0) fL MCH (25.0-35.0) pg MCHC (31.0-37.0) g/dL RDW (11.5-15.5) % Plt Count (150-450) k/uL MPV Neutrophils % % Lymphocytes % % Monocytes % % Eosinophils % % Basophils % % Neutrophils # (1.3-7.7) k/uL Lymphocytes # (1.0-4.8) k/uL Monocytes # (0-1.0) k/uL Eosinophils # (0-0.7) k/uL Basophils # (0-0.2) k/uL PT (10.0-12.5) sec INR (<1.2) APTT (22.0-30.0) sec Sodium (137-145) mmol/L Potassium (3.5-5.1) mmol/L Chloride (98-107) mmol/L Carbon Dioxide (22-30) mmol/L Anion Gap mmol/L BUN (9-20) mg/dL Creatinine (0.66-1.25) mg/dL Est GFR (CKD-EPI)AfAm (>60 ml/min/1.73 sqM) Est GFR (CKD-EPI)NonAf (>60 ml/min/1.73 sqM) Glucose (74-99) mg/dL Calcium (8.4-10.2) mg/dL Magnesium (1.6-2.3) mg/dL Total Bilirubin (0.2-1.3) mg/dL AST (17-59) U/L ALT (4-49) U/L Alkaline Phosphatase (38-126) U/L Troponin I <0.012 (0.000-0.034) ng/mL Total Protein (6.3-8.2) g/dL Albumin (3.5-5.0) g/dL Urine Color Colorless Urine Appearance Clear (Clear) Urine pH 6.0 (5.0-8.0) Ur Specific Bath 1.006 (1.001-1.035) Urine Protein Negative (Negative) Urine Glucose (UA) Negative (Negative) Urine Ketones Negative (Negative) Urine Blood Negative (Negative) Urine Nitrite Negative (Negative) Urine Bilirubin Negative (Negative) Urine Urobilinogen <2.0 (<2.0) mg/dL Ur Leukocyte Esterase Negative (Negative) Influenza Type A (PCR) Not Detected (Not Detectd) Influenza Type B (PCR) Not Detected (Not Detectd) RSV (PCR) Not Detected (Not Detectd) SARS-CoV-2 (PCR) Not Detected (Not Detectd) Disposition Clinical Impression: Fall, Generalized weakness, Parkinson disease Disposition: HOME SELF-CARE Condition: Stable Instructions (If sedation given, give patient instructions): Fall Prevention (ED) Additional Instructions: Please follow up with Dr. Julian as scheduled. Return to the emergency department for new or worsening symptoms. Is patient prescribed a controlled substance at d/c from ED?: No Referrals: [facility],Equipment [NON-STAFF] - (Supplier of two wheeled walker. ) Nicola Stephens DO [STAFF PHYSICIAN] - (Discussed possible referral with primary care physician.) David Mann DO [Primary Care Provider] - 06/04/23 9:40 am [employer] [NON-STAFF] - 1-2 days (Contact regarding shower chair and bed grab bars. ) Forms: [employer]
[2023-05-27 12:35] LABS: Basophils # (A) 0.1 k/uL (0-0.2); Basophils % (A) 1 %; Eosinophils % (A) 0 %; HCT 39.9 % (39.0-53.0); HGB 13.9 gm/dL (13.0-17.5); Lymphocytes # (A) 1.8 k/uL (1.0-4.8); Lymphocytes % (A) 13 %; MCHC 34.8 g/dL (31.0-37.0); MCV 91.9 fL (80.0-100.0); Mean Platelet Volume 7.9; Monocytes # (A) 0.9 k/uL (0-1.0); Monocytes % (A) 7 %; Neutrophils # (A) 10.7 k/uL (1.3-7.7); Neutrophils % (A) 77 %; Platelet Count 169 k/uL (150-450); RBC 4.34 m/uL (4.30-5.90); RDW 12.2 % (11.5-15.5); WBC 13.9 k/uL (3.8-10.6)
[2023-05-27 12:38] LABS: Appearance,Urine Clear (Clear); Bilirubin,Urine Negative (Negative); Blood,Urine Negative (Negative); Color,Urine Colorless; Glucose,Urine (UA) Negative (Negative); Ketones,Urine Negative (Negative); Leukocyte Esterase,Urine Negative (Negative); Nitrite,Urine Negative (Negative); Protein,Urine Negative (Negative); Specific Gravity,Urine 1.006 (1.001-1.035); Urobilinogen,Urine <2.0 mg/dL (<2.0)
[2023-05-27 12:44] LABS: INR 1.1 (<1.2); Prothrombin Time 11.5 sec (10.0-12.5)
[2023-05-27 12:48] LABS: ALT 50 U/L (4-49); AST 53 U/L (17-59); African American GFR (CKD) 85 (>60 ml/min/1.73 sqM); Albumin 3.8 g/dL (3.5-5.0); Alkaline Phosphatase 125 U/L (38-126); Anion Gap 8 mmol/L; Blood Urea Nitrogen 20 mg/dL (9-20); Calcium 8.8 mg/dL (8.4-10.2); Carbon Dioxide 26 mmol/L (22-30); Chloride 105 mmol/L (98-107); Glucose 127 mg/dL (74-99); Magnesium 1.9 mg/dL (1.6-2.3); Non-African American GFR(CKD) 74 (>60 ml/min/1.73 sqM); Potassium 4.2 mmol/L (3.5-5.1); Sodium 139 mmol/L (137-145); Total Bilirubin 0.7 mg/dL (0.2-1.3); Total Protein 6.8 g/dL (6.3-8.2)
--- NOTE | 2023-05-27 13:21 | XR ---
EXAMINATION TYPE: XR chest 2V DATE OF EXAM: 05/27/2023 COMPARISON: 10/01/2020 HISTORY: 73-year-old male with weakness TECHNIQUE: AP and lateral views FINDINGS: Heart upper limits of normal in size. Aorta and pulmonary vasculature within normal limits. Some stri ngy atelectasis at the lung bases. No consolidation or pleural effusion. IMPRESSION: No acute cardiopulmonary process.
--- NOTE | 2023-05-27 13:37 | CT ---
EXAMINATION TYPE: CT brain mindi wo con DATE OF EXAM: 05/27/2023 COMPARISON: 02/17/2019 HISTORY: Fall, weakness CT DLP: 1475 mGycm, Automated exposure control for dose reduction was used. CONTRAST: Patient injected with 0 mL of Isovue 300. CT of the brain is performed utilizing 3 mm thick sections through the posterior fossa and 3 mm thick sections through the remaining calvarium. Study is performed within 24 hours of arrival to the hospital. No abnormal hyperdensity is present to suggest an acute intracranial hemorrhage. No mass lesion is evident. No acute infarcts are evident. Ventricles and sulci are appropriate for the patient age. Paranasal sinuses and mastoid air cells within the [id number] are clear. IMPRESSIONS: 1. No acute intracranial process. Follow-up MRI can be performed as clinically indicated CT cervical spine. COMPARISON: None CT of the cervical spine is performed in the axial plane at 2 mm thick sections. Reconstructed image s in the coronal, and sagittal plane are reviewed on the computer. No acute fractures are evident. Subtle kyphosis is present centered at approximately C5 5. There is loss of disc height present C4-5 through C7-T1. Anterior vertebral body spurring is present C3-T1. Prevertebral space is normal. Posterior spinal line appears intact. Facet hypertrophy is prese nt C3-4 on the right mild facet hypertrophy is present on the left C4-5 Vertebral body heights are preserved. No spinal canal stenosis is evident. Mild upper foraminal narrowing is present C2-3 on the right and C3-4 on the left. IMPRESSION: 1. No acute osseous abnormality cervical spine. 2. Degenerative disc changes throughout the cervical spine. 3. There is some mild foraminal narrowing secondary to facet hypertrophy right C2-3 and due to uncove rtebral joint hypertrophy left C3-4.
[2023-05-27] MEDS: DIPH,PERTUS(ACELL)TETVAC-LF 0.5 ML VIAL IM ONE (16:51)
[2023-05-27 17:00] VITALS: BP 136/87; PULSE 79; RESP 18; TEMP 98
== END 2023-05-27 16:53 | disposition home or self-care (01) ==
LOC: EC 11:27
DX: S50.311A Abrasion of right elbow, initial encounter (principal); R53.1 Weakness; G20.A1 Parkinson's disease without dyskinesia, without mention of fluctuations; I10 Essential (primary) hypertension; G47.30 Sleep apnea, unspecified; Z79.899 Other long term (current) drug therapy; W18.09XA Striking against other object with subsequent fall, initial encounter; Z20.822 Contact with and (suspected) exposure to COVID-19
CPT/HCPCS: 36415; 70450; 71046; 72125; 80053; 81003; 83735; 84484; 85025; 85610; 85730; 87636; 93005; 99284

== ENCOUNTER → 2024-08-19 | Outpatient (CLI) | payer MEDICARE ==
--- NOTE | 2024-08-19 14:20 | MR ---
EXAMINATION TYPE: MR brain wo con DATE OF EXAM: 08/19/2024 COMPARISON: MRI brain March 20, 2021 HISTORY: MONOPLEGIA OF UPPER LIMB AFFECTING UNSPECIFIED. Parkinson's disease. TECHNIQUE: Multiplanar, multisequence imaging of the brain and brainstem is performed without IV cont rast. FINDINGS: Diffusion weighted images demonstrate no evidence of a recent infarct or other diffusion abnormality. The ventricular system and cisternal spaces are normal in size and appearance. The brain volume is a ge appropriate. There are multifocal areas of T2 hyperintensity throughout the deep and periventricul ar white matter bilaterally. Lesions are nonspecific in appearance and distribution. Midline structures redemonstrate empty sella morphology. The craniocervical junction appears within normal limits. Patchy increased fluid signal bilateral mastoid air cells. Normal vascular flow voids are present. Dominant left vertebral artery redemonstrated. The globes are intact bilaterally. Mild mucosal thickening in the ethmoid sinuses bilaterally is seen. IMPRESSION: 1. No MRI evidence for recent infarct. 2. [id number] nonspecific white matter changes favor product of chronic small vessel ischemic c hange in patient of this age. [facility], , 08/19/2024 2:17 PM
== END | disposition home or self-care (01) ==
LOC: RADMRIMAIN 13:04
PROVIDERS: ATTEND Psychiatry & Neurology Neurology
DX: G20.A1 Parkinson's disease without dyskinesia, without mention of fluctuations (principal); G83.20 Monoplegia of upper limb affecting unspecified side; I67.82 Cerebral ischemia
CPT/HCPCS: 70551

== ENCOUNTER → 2024-08-21 | Outpatient (CLI) | payer MEDICARE ==
[~2024-08-21] MED LIST: IODINE/POTASSIUM IODIDE 14 ML BOTTLE ONE
--- NOTE | 2024-08-21 14:42 | NM ---
EXAMINATION TYPE: NM DatScan Brain SPECT DATE OF EXAM: 08/21/2024 COMPARISON: MRI brain 2 days earlier. CLINICAL INDICATION: Male, 74 years old with history of G83.2,G20.C PARKINSONISM, UNSPECIFIED; TECHNIQUE: 10 drops of Lugol's solution was administered 1 hour prior to injection as a thyroid bloc marie agent. After the administration of 5.3 mCi I-123 Ioflupane DaTscan. Images obtained [address] injection. SPECT images of the brain were acquired with axial and coronal reconstructions. FINDINGS: Normal radiotracer uptake throughout the striata bilaterally. IMPRESSION: Normal study. [facility], , 08/21/2024 2:39 PM
== END | disposition home or self-care (01) ==
LOC: RADNMMAIN 08:08
PROVIDERS: ATTEND Psychiatry & Neurology Neurology
DX: G20.C Parkinsonism, unspecified (principal); G83.20 Monoplegia of upper limb affecting unspecified side
CPT/HCPCS: 78803; A9584

== ENCOUNTER 2024-10-24 20:49 | Emergency (ER) | payer MEDICARE ==
[2024-10-24 21:44] VITALS: RESP 18; TEMP 98.1
--- NOTE | 2024-10-24 21:51 | ED ---
Fall HPI - General Chief Complaint: Fall Stated Complaint: fall Time Seen by Provider: 10/24/24 21:50 Source: patient, family, RN notes reviewed, old records reviewed Mode of arrival: wheelchair - History of Present Illness Initial Comments: This is a 74-year-old male to the ER after a fall. Patient is 6 hours after a fall earlier today, positive head injury complaining of head and neck pain. Patient suffers from Parkinson's disease fall was mechanical in nature trip and fall, feeling of her chemo today saw significant laceration above left eye and brought patient to the emergency department, patient's main complaint is headache and neck pain MD Complaint: fall -: hour(s) (6) Fall From: standing When Fall Occurred: 4-6 hours [employer] Fall Witnessed: yes, by family Place Fall Occurred: home Loss of Consciousness: none Prolonged Down Time?: no Symptoms Prior to Fall: none Location: head, neck Location - Extremities: Left: Knee Severity: moderate Severity scale (1-10): 8 Quality: sharp Context: tripped/slipped Associated Symptoms: denies - Related Data Home Medications Medication Instructions Recorded Confirmed valACYclovir HCL [Valtrex] 500 mg PO DAILY 03/02/19 09/30/20 Fluticasone Nasal [place] [Flonase 1 spr EA NOSTRIL DAILY PRN 06/28/19 09/30/20 Nasal [place]] Sertraline [Zoloft] 50 mg PO DAILY 06/28/19 09/30/20 Sildenafil Citrate 100 mg PO DAILY PRN 09/30/20 09/30/20 Previous Rx's Medication Instructions Recorded Rivaroxaban [Xarelto Starter Pack] 0 mg PO DIRECTED 30 Days #1 pack 10/03/20 Acetaminophen Tab [Tylenol] 650 mg PO Q6HR PRN tab 10/04/20 Amoxic-Pot Clav 875-125Mg 1 tab PO Q12HR 2 Days #4 tab 10/04/20 [Augmentin 875-125] Allergies Allergy/AdvReac Type Severity Reaction Status Date / Time No Known Allergies Allergy Verified 10/24/24 21:44 Review of Systems ROS Statement: Those systems with pertinent positive or pertinent negative responses have been documented in the HPI. ROS Other: All systems not noted in ROS Statement are negative. Past Medical History Past Medical History: Hearing Disorder / Deafness, Hypertension, Musculoskeletal Disorder, Neurologic Disorder, Osteoarthritis (OA), Sleep Apnea/CPAP/BIPAP, Vascular Disorder Additional Past Medical History / Comment(s): AAA being monitored, Parkinson's disease, R lacunar infarct per previous cat scan report/pt does not recall being told but states he has R sided weakness, AIYANA but does not tolerate device, pt states CHF once many years ago, occasional back pain, bilateral tinnitis. History of Any Multi-Drug Resistant Organisms: None Reported Past Surgical History: Appendectomy, Hernia Repair, Tonsillectomy Additional Past Surgical History / Comment(s): Bilateral inguinal hernia repairs done twice, colonoscopy Past Anesthesia/Blood Transfusion Reactions: No Reported Reaction Past Psychological History: No Psychological Hx Reported Smoking Status: Never smoker Past Alcohol Use History: None Reported Past Drug Use History: None Reported - Past Family History Father Family Medical History: Cancer Additional Family Medical History / Comment(s): Father at the age of 75yrs from metastatic bladder cancer. Mother Family Medical History: No Reported History Additional Family Medical History / Comment(s): Mother is 89yrs old and healthy. General Exam Limitations: no limitations General appearance: alert, in no apparent distress Head exam: Present: atraumatic, normocephalic, normal inspection Eye exam: Present: normal appearance, PERRL, EOMI. Absent: scleral icterus, conjunctival injection, periorbital swelling ENT exam: Present: normal exam, mucous membranes moist Neck exam: Present: normal inspection. Absent: tenderness, meningismus, lymphadenopathy Respiratory exam: Present: normal lung sounds bilaterally. Absent: respiratory distress, wheezes, rales, rhonchi, stridor Cardiovascular Exam: Present: regular rate, normal rhythm, normal heart sounds. Absent: systolic murmur, diastolic murmur, rubs, gallop, clicks GI/Abdominal exam: Present: soft, normal bowel sounds. Absent: distended, tenderness, guarding, rebound, rigid Extremities exam: Present: normal inspection, full ROM, normal capillary refill. Absent: tenderness, pedal edema, joint swelling, calf tenderness Back exam: Present: normal inspection Neurological exam: Present: alert, oriented X3, CN II-XII intact Psychiatric exam: Present: normal affect, normal mood Skin exam: Present: warm, dry, intact, normal color. Absent: rash Course Vital Signs 07/12/25 07/13/25 07/13/25 21:38 00:42 01:05 Temperature 98.1 F Pulse Rate 79 79 60 Respiratory 18 18 18 Rate Blood Pressure 142/93 137/93 162/102 O2 Sat by Pulse 95 96 96 Oximetry - Reevaluation(s) Reevaluation #1: 10/24/24 22:15 Medical records reviewed Reevaluation #2: 10/25/24 00:37 Patient symptoms unchanged Reevaluation #3: 10/25/24 00:37 Patient informed of results questions answered Reevaluation #4: Was pt. sent in by a medical professional or institution (, [facility], [facility], urgent care, hospital, or long-term...) When possible be specific @ -no Did you speak to anyone other than the patient for history (EMS, parent, family, police, friend...)? What history was obtained from this source @ -no Did you review nursing and triage notes (agree or disagree)? Why? @ -agree Are old charts reviewed (outside hosp., previous admission, EMS record, old EKG, old radiological studies, urgent care reports/EKG's, long-term records)? Report findings @ -yes Differential Diagnosis (chest pain, altered mental status, abdominal pain women, abdominal pain men, vaginal bleeding, weakness, fever, dyspnea, syncope, headache, dizziness, GI bleed, back pain, seizure, CVA, palpatations, mental health, musculoskeletal)? @ -prior EKG interpreted by me (3pts min.). @ -yes X-rays interpreted by me (1pt min.). @ -yes negative for acute disease CT interpreted by me (1pt min.). @ -no U/S interpreted by me (1pt. min.). @ -no What testing was considered but not performed or refused? (CT, X-rays, U/S, labs)? Why? @ -none What meds were considered but not given or refused? Why? @ -none Did you discuss the management of the patient with other professionals (professionals i.e. [facility] Tello, [facility], lab, RT, psych nurse, web content & social media manager, servicenow administrator, teacher, police commanding officer, upper caser)? Give summary @ -no Was smoking cessation discussed for >3mins.? @ -no Was critical care preformed (if so, how long)? @ -no Were there social determinants of health that impacted care today? How? (Homelessness, low income, unemployed, alcoholism, drug addiction, transportation, low edu. Level, literacy, decrease access to med. care, snf, rehab)? @ -none Was there de-escalation of care discussed even if they declined (Discuss DNR or withdrawal of care, Hospice)? DNR status @ -no What co-morbidities impacted this encounter? (DM, HTN, Smoking, COPD, CAD, Cancer, CVA, ARF, Chemo, Hep., AIDS, mental health diagnosis, sleep apnea, morbid obesity)? @ -none Was patient admitted / discharged? Hospital course, mention meds given and route, prescriptions, significant lab abnormalities, going to OR and other pertinent info. @ - Undiagnosed new problem with uncertain prognosis? @ -no Drug Therapy requiring intensive monitoring for toxicity (Heparin, Nitro, Insulin, Cardizem)? @ -no Were any procedures done? @ -no Diagnosis/symptom? @ - Acute, or Chronic, or Acute on Chronic? @ -Acute Uncomplicated (without systemic symptoms) or Complicated (systemic symptoms)? @ -Complicated Side effects of treatment? @ -no Exacerbation, Progression, or Severe Exacerbation? @ -exacerbation Poses a threat to life or bodily function? How? (Chest pain, USA, MS, pneumonia, PE, COPD, DKA, ARF, appy, cholecystitis, CVA, Diverticulitis, Homicidal, Suicidal, threat to staff... and all critical care pts) @ -yes Reevaluation #5: Differential Headache: Migraine, tension, cluster, carbon monoxide, central venous thrombosis, pension karma temporal arteritis, acute closure glaucoma, intercranial hemorrhage, mastoiditis, sinusitis, head injury, this is not meant to be an all-inclusive list. - Consultations Consultation #1: Patient was transferred [facility] for acute intracranial hemorrhage Procedures - Laceration Laceration #1 Consent Obtained: verbal consent Indication: laceration Site: face Size (cm): 3 Description: linear Depth: simple, single layer Anesthetic Used: lidocaine 1%, with epi Pre-repair: wound explored Size of Sutures: 5-0 Technique: simple, interrupted Complications: pain Medical Decision Making - Medical Decision Making 74 male fall head injury left eyelid laceration repaired here in the ER, significant hematoma left eye at this time patient can be discharged home - EKG Data -: EKG Interpreted by Me (EKG is sinus bradycardia 57 NC 182 QRS 95 QTc 438) - Radiology Data Radiology results: report reviewed (CT brain C-spine facial bones negative for acute traumatic injury x-ray left knee shows significant hematoma left frontal scalp, small intracranial hemorrhage), image reviewed Disposition Clinical Impression: Fall, Parkinson disease, Head injury, Left eyelid laceration, Hematoma of left upper eyelid, Intracranial hemorrhage Condition: Serious Instructions (If sedation given, give patient instructions): Laceration (ED) Is patient prescribed a controlled substance at d/c from ED?: No Referrals: David Mann DO [Primary Care Provider] - 1-2 days Time of Disposition: 00:30
[2024-10-24] MEDS: LIDOCAINE 1%-EPI 1:100,000 20 ML VIAL SQ STA (23:05)
--- NOTE | 2024-10-25 00:34 | XR ---
EXAM: XR Left Knee, 3 Views CLINICAL HISTORY: ITS.REASON XR Reason: fall TECHNIQUE: Three views of the left knee. COMPARISON: 09/08/2024. FINDINGS: Bones/joints: Small left knee joint effusion. Normal anatomic alignment. No acute fracture or dislocation. Soft tissues: Soft tissues are unremarkable. IMPRESSION: Mild tricompartmental osteoarthritic changes and joint effusion. MRI imaging may provide additional information, as seen clinically necessary.
--- NOTE | 2024-10-25 00:40 | CT ---
EXAM: CT Head Without Intravenous Contrast CLINICAL HISTORY: ITS.REASON CT Reason: fall TECHNIQUE: Axial computed tomography images of the head/brain without intravenous contrast. CTDI is 25 mGy and DLP is 827.3 mGy-cm. This CT exam was performed using one or more of the following dose reduction techniques: automated exposure control, adjustment of the mA and/or kV according to patient size, and/or use of iterative reconstruction technique. COMPARISON: 05/27/2023. FINDINGS: Brain: Minimal areas of hemorrhage noted at the frontal regions bilaterally, left greater than right including area of intraparenchymal hemorrhage within the left frontal lobe and bilateral small areas of subacute hemorrhage. Ventricles: Unremarkable. No ventriculomegaly. Bones/joints: Calvarium is unremarkable. No acute fracture. Soft tissues: There is soft tissue swelling and hematoma about the left periorbital region extending to the left frontal scalp. Sinuses: Visualized sinuses are unremarkable. Mastoid air cells: Mastoid air cells are well pneumatized. Other findings: Age-related changes. IMPRESSION: 1. Left periorbital soft tissue swelling and left frontal scalp hematoma. 2. Best seen on series 208 image 14, there is a 1 cm area of intraparenchymal hemorrhage and minimal subarachnoid hemorrhage at the left frontal lobe. 3. Minimal subarachnoid hemorrhage is noted at the left frontal lobe seen on series 2 0 image 14. 4. No midline shift or mass-effect. EXAM: CT Cervical Spine Without Intravenous Contrast CLINICAL HISTORY: ITS.REASON CT Reason: fall TECHNIQUE: Axial computed tomography images of the cervical spine without intravenous contrast. CTDI is 16.7 mGy and DLP is 411.8 mGy-cm. This CT exam was performed using one or more of the following dose reduction techniques: automated exposure control, adjustment of the mA and/or kV according to patient size, and/or use of iterative reconstruction technique. COMPARISON: 05/27/2023. FINDINGS: Vertebrae: There is straightening and reversal of the curvature of the cervical spine compatible with muscle spasm. There is grade 1 anterolisthesis of C3 upon C4 vertebral body. Cervical and visualized thoracic vertebral bodies are unremarkable. Spinous processes are unremarkable. There is dextro scoliosis. There is a normal relationship of C1 and C2. Transaxial images of the cervical spine reveals multilevel posterior facet hypertrophy and disc osteophyte complexes. No acute fracture. Discs/spinal canal/neural foramina: Moderate to severe degenerative disc disease of the cervical spine. No spinal canal stenosis. Soft tissues: Unremarkable. Lung apices: Lung apices are unremarkable. IMPRESSION: 1. Abnormal alignment of the cervical spine, similar to that noted on the previous study, attributable to posterior facet hypertrophy. 2. No acute injury to the cervical spine is detected. <MYCVCSECTION> Communications: 10/25/24 00:46 Call Doctor Regarding Intracranial Hemorrhage, called Dr. Javed on 10/25 00:46 (-04:00)
--- NOTE | 2024-10-25 00:42 | CT ---
EXAM: CT Maxillofacial Without Intravenous Contrast CLINICAL HISTORY: ITS.REASON CT Reason: fall TECHNIQUE: Axial computed tomography images of the face without intravenous contrast. CTDI is 25 mGy and DLP is 827.3 mGy-cm. This CT exam was performed using one or more of the following dose reduction techniques: automated exposure control, adjustment of the mA and/or kV according to patient size, and/or use of iterative reconstruction technique. COMPARISON: No previous studies. FINDINGS: Bones/joints: The visualized calvarium is unremarkable. Zygomatic arches are unremarkable. Lamina papyracea of the nasal bones are unremarkable. Maxilla are unremarkable. Mandibular condyles are normal anatomic position. No acute mandibular fracture. Soft tissues: There is left frontal scalp hematoma and soft tissue swelling about the left periorbital region extending to the left maxillary region. Clinical correlation is advised. Orbits: Orbital rims are intact. Sinuses: Renetta bullosa of the middle turbinates. Nasal spine is unremarkable. No air-fluid levels. Nasal cavity/septum: Deviation of the nasal spine right of midline. IMPRESSION: 1. Extensive soft tissue swelling and hematoma about the left periorbital region extending to the left frontal scalp. 2. No acute facial fracture is detected.
[2024-10-25] MEDS ORDERED: SODIUM CHLORIDE 0.9% 1,000 ML IV SCH (01:00)
[2024-10-25] MEDS: MORPHINE SULFATE 4 MG/ML SYRINGE IV STA (01:09)
[2024-10-25] MEDS: SODIUM CHLORIDE 0.9% 1,000 ML IV SCH (01:09)
[2024-10-25] MEDS: ONDANSETRON 4 MG/2 ML VIAL IVP STA (01:09)
[2024-10-25 01:31] LABS: Basophils # (A) 0.05 10*3/uL (0.00-0.10); Basophils % (A) 0.5 %; Eosinophils # (A) 0.20 10*3/uL (0.04-0.35); Eosinophils % (A) 2.0 %; HCT 38.3 % (39.6-50.0); HGB 13.7 g/dL (13.0-17.0); Lymphocytes # (A) 1.94 10*3/uL (0.90-5.00); Lymphocytes % (A) 19.1 %; MCH 32.3 pg (27.0-32.0); MCHC 35.8 g/dL (32.0-37.0); MCV 90.3 fL (80.0-97.0); Monocytes # (A) 1.16 10*3/uL (0.20-1.00); Monocytes % (A) 11.4 %; Neutrophils # (A) 6.77 10*3/uL (1.80-7.70); Neutrophils % (A) 66.8 %; Platelet Count 195 10*3/uL (140-440); RBC 4.24 10*6/uL (4.40-5.60); RDW 12.7 % (11.5-14.5); WBC 10.14 10*3/uL (4.50-10.00)
[2024-10-25 01:44] LABS: INR 1.0 (<1.2); Partial Thromboplastin Time 24.8 sec (22.0-30.0); Prothrombin Time 11.3 sec (10.0-12.5)
[2024-10-25 02:02] LABS: ALT 6 U/L (4-49); AST 30 U/L (17-59); African American GFR (CKD) >90 (>60 ml/min/1.73 sqM); Albumin 3.9 g/dL (3.5-5.0); Alkaline Phosphatase 85 U/L (38-126); Anion Gap 8 mmol/L; Blood Urea Nitrogen 21 mg/dL (9-20); Calcium 9.2 mg/dL (8.4-10.2); Carbon Dioxide 26 mmol/L (22-30); Chloride 105 mmol/L (98-107); Glucose 99 mg/dL (74-99); Magnesium 2.0 mg/dL (1.6-2.3); Non-African American GFR(CKD) 80 (>60 ml/min/1.73 sqM); Potassium 3.9 mmol/L (3.5-5.1); Sodium 139 mmol/L (137-145); Total Protein 6.3 g/dL (6.3-8.2)
[2024-10-25 02:28] VITALS: BP 142/100; PULSE 59
== END 2024-10-25 02:28 ==
LOC: EC 20:49
DX: G20.A1 Parkinson's disease without dyskinesia, without mention of fluctuations (principal); S01.112A Laceration without foreign body of left eyelid and periocular area, initial encounter; S09.90XA Unspecified injury of head, initial encounter; H02.89 Other specified disorders of eyelid; Z86.73 Personal history of transient ischemic attack (TIA), and cerebral infarction without residual deficits; W01.0XXA Fall on same level from slipping, tripping and stumbling without subsequent striking against object, initial encounter
CPT/HCPCS: 12013 ×2; 99284 ×2; 96374 ×2; 96375 ×2; 96361; 36415; 93005; 80053; 83605; 83735; 84100; 84484; 85025; 85610; 85730; 73562; 72125; 70486; 70450; J2270; J2405